=== PATIENT | male | born 1945 | race Caucasian/White ===

== ENCOUNTER 2016-09-06 18:53 | Inpatient (IN) | payer OTHER, BC ==
[2016-09-06 19:58] LABS: MCH 32.1 pg (25.7-33.7); MCHC 33.6 g/dl (32.0-35.9); MEAN CELL VOLUME 95.6 fl (80-96); MEAN PLT VOLUME 6.3 fl (7.5-11.1); PLATELET COUNT 159 K/MM3 (134-434); RDW 13.9 % (11.9-15.9); WHITE BLOOD COUNT 8.8 K/mm3 (4.0-10.0)
[2016-09-06 20:08] LABS: CALCIUM 10.9 mg/dl (8.4-10.2); CREATININE 3.7 mg/dl (0.6-1.3)
--- NOTE | 2016-09-06 20:54 | PDOC ---
History of Present Illness - General History Source: Family (Daughters), Senior Care Records Exam Limitations: Dementia - History of Present Illness Initial Comments: 09/06/16 20:55 The patient is a 70 year old male brought via EMS from [facility], with a significant past medical history of Dementia, Cervical Myelopathy, CAD, CHF s/p pacemaker, HTN, HLD and diabetes, who presents to the emergency department with anemia. Blood work performed at the [facility] reports that his hemoglobin count is 6.3. On previous blood work from 08/30/2016, his hemoglobin count was 7.5. Allergies: None Past surgical history: PPM, spine surgery, neck surgery Social history: No alcohol, tobacco or drug use reported Senior Care: [facility] PMD - Dr. uGstavo Polanco ([phone]) <Ivan Gautam - Last Filed: 09/06/16 20:55> <Rafael Mckeon - Last Filed: 09/06/16 21:16> - General Chief Complaint: Weakness Stated Complaint: SENT FOR ANEMIA Time Seen by Provider: 09/06/16 19:11 Past History <Ivan Gautam - Last Filed: 09/06/16 20:55> - Past Medical History Cardiac Disorders: Yes (CAD) Diabetes: Yes HTN: Yes Hypercholesterolemia: Yes Other medical history: CERVICAL MYELOPATHY, LEFT SIDED SPASTICITY - Surgical History Cardiac Surgery: Yes (PPM) Neurologic Surgery: Yes (C5 C6 SURGERY) - Immunization History Td Vaccination: Yes TDAP Vaccination: Yes Immunization Up to Date: Yes - Psycho/Social/Smoking Cessation Hx Anxiety: No Suicidal Ideation: No Smoking History: Unknown if ever smoked Have you smoked in the past 12 months: No Number of Cigarettes Smoked Daily: 0 Hx Alcohol Use: No Drug/Substance Use Hx: No Substance Use Type: None <Rafael Mckeon - Last Filed: 09/06/16 21:16> - Past Medical History Allergies/Adverse Reactions: Allergies Allergy/AdvReac Type Severity Reaction Status Date / Time No Known Allergies Allergy Verified 09/06/16 18:54 Home Medications: Ambulatory Orders Acetaminophen [Tylenol] 650 mg PO TID PRN 09/06/16 Ascorbate Calcium [Vitamin C] 500 mg PO BID 09/06/16 Carvedilol [Coreg] 3.125 mg PO DAILY 09/06/16 Docusate Sodium [Colace -] 100 mg PO BID 09/06/16 Erythromycin 0.5% Eye Ointment [Erythromycin 0.5% Eye Ointment -] 1 applic DAILY 09/06/16 Folic Acid 1 mg PO DAILY 09/06/16 Megestrol Acetate Oral Susp [Megace Oral Suspension -] 20 ml PO DAILY 09/06/16 Mirtazapine [Remeron -] 30 mg PO DAILY 09/06/16 Multivitamin with Minerals [Icaps Plus] 1 each PO DAILY 09/06/16 Sodium Phosphate/Na Biphos [Fleet Adult Rectal Enema] 133 ml RC PRN PRN Review of Systems - Review of Systems Able to Perform ROS?: No Comments:: 09/06/16 20:56 Unable to obtain due to patient dementia. <Ivan Gautam - Last Filed: 09/06/16 20:55> *Physical Exam - Vital Signs Last Vital Signs Temp Pulse Resp BP Pulse Ox 98.5 F 98 H 16 128/69 99 09/06/16 18:55 09/06/16 19:23 09/06/16 19:23 09/06/16 19:23 09/06/16 19:23 <Ivan Gautam - Last Filed: 09/06/16 20:55> - Vital Signs Last Vital Signs Temp Pulse Resp BP Pulse Ox 98.5 F 98 H 16 128/69 99 09/06/16 18:55 09/06/16 19:23 09/06/16 19:23 09/06/16 19:23 09/06/16 19:23 - Physical Exam General Appearance: Yes: Nourished, Appropriately Dressed. No: Apparent Distress HEENT: positive: Normal ENT Inspection (DRY MUCOSAE) Neck: positive: Rigid. negative: Tender Respiratory/Chest: positive: Lungs Clear, Normal Breath Sounds. negative: Respiratory Distress Cardiovascular: positive: Regular Rhythm, Regular Rate Gastrointestinal/Abdominal: positive: Normal Bowel Sounds, Soft. negative: Tender Musculoskeletal: positive: Normal Inspection Extremity: positive: Normal Capillary Refill, Other (SPASTIC. PROXIMAL EXT FLEXION AND DISTAL EXT) Integumentary: positive: Normal Color. negative: Rash Neurologic: positive: Alert. negative: Fully Oriented <Rafael Mckeon - Last Filed: 09/06/16 21:16> ED Treatment Course - LABORATORY CBC & Chemistry Diagram: 09/06/16 19:40 09/06/16 19:40 - ADDITIONAL ORDERS Additional order review: Laboratory Results 09/06/16 09/06/16 19:40 19:40 Sodium 134 L Potassium 4.3 Chloride 105 Carbon Dioxide 18 L D Anion Gap 11 BUN 63 H D Creatinine 3.7 H D Random Glucose 97 D Calcium 10.9 H D Crossmatch See Detail 09/06/16 19:40 RBC 2.11 L D MCV 95.6 MCHC 33.6 RDW 13.9 MPV 6.3 L D <Ivan Gautam - Last Filed: 09/06/16 20:55> - LABORATORY CBC & Chemistry Diagram: 09/06/16 19:40 09/06/16 19:40 - ADDITIONAL ORDERS Additional order review: Laboratory Results 09/06/16 19:40 Sodium 134 L Potassium 4.3 Chloride 105 Carbon Dioxide 18 L D Anion Gap 11 BUN 63 H D Creatinine 3.7 H D Random Glucose 97 D Calcium 10.9 H D 09/06/16 19:40 RBC 2.11 L D MCV 95.6 MCHC 33.6 RDW 13.9 MPV 6.3 L D <Rafael Mckeon - Last Filed: 09/06/16 21:16> *DC/Admit/Observation/Transfer - Attestations Scribe Attestion: 09/06/16 20:57 Documentation prepared by Ivan Gautam, acting as medical biller coder for Rafael Mckeon MD. <Ivan Gautam - Last Filed: 09/06/16 20:55> - Discharge Dispostion Admit: Yes <Rafael Mckeon - Last Filed: 09/06/16 21:16> Diagnosis at time of Disposition: Anemia Qualifiers: Anemia type: unspecified type Qualified Code(s): D64.9 - Anemia, unspecified Acute renal failure Qualifiers: Acute renal failure type: unspecified Qualified Code(s): N17.9 - Acute kidney failure, unspecified - Discharge Dispostion Condition at time of disposition: Stable - Referrals Referrals: Gustavo Polanco [Primary Care Provider] -
[2016-09-06] MEDS: SODIUM CHLORIDE 1,000 ML IV SCH (21:30)
--- NOTE | 2016-09-06 21:36 | HP ---
CHIEF COMPLAINT: Low Hgb PCP: Dr. Gustavo Polanco HISTORY OF PRESENT ILLNESS: This is a 70 year old male with a past medical history of Dementia, HTN, CHF, CAD s/p PPM, HLD, DM, Cervical Myelopathy. Who presented to the emergency department from [facility] for Anemia, lab studies done showed Hgb 6.3. Patient has Dementia unable to obtain HPI, family not available. Per ED records: Blood work performed at the [facility] reports that his hemoglobin count is 6.3. On previous blood work from 08/30/2016, his hemoglobin count was 7.5. ER course was notable for: (1) Hgb 6.8 (2) ARF- BUN 19, Cr 3.7 (3) Chest Xray-pending (4) Stool Occult-negative Recent Travel: None PAST MEDICAL HISTORY: See HPI PAST SURGICAL HISTORY: PPM Cervical Social History: Smoking: Unknown Alcohol: Unknown Drugs: Unknown Family History: Unknown Allergies No Known Allergies Allergy (Verified 09/06/16 18:54) HOME MEDICATIONS: Medication Instructions Recorded Acetaminophen [Tylenol] 650 mg PO TID PRN 09/06/16 Ascorbate Calcium [Vitamin C] 500 mg PO BID 09/06/16 Carvedilol [Coreg] 3.125 mg PO DAILY 09/06/16 Docusate Sodium [Colace -] 100 mg PO BID 09/06/16 Erythromycin 0.5% Eye Ointment 1 applic DAILY 09/06/16 [Erythromycin 0.5% Eye Ointment -] Folic Acid 1 mg PO DAILY 09/06/16 Megestrol Acetate Oral Susp 20 ml PO DAILY 09/06/16 [Megace Oral Suspension -] Mirtazapine [Remeron -] 30 mg PO DAILY 09/06/16 Multivitamin with Minerals [Icaps 1 each PO DAILY 09/06/16 Plus] Sodium Phosphate/Na Biphos [Fleet 133 ml RC PRN PRN 09/06/16 Adult Rectal Enema] REVIEW OF SYSTEMS Unable to obtain CONSTITUTIONAL: Absent: fever, chills, diaphoresis, generalized weakness, malaise, loss of appetite, weight change HEENT: Absent: rhinorrhea, nasal congestion, throat pain, throat swelling, difficulty swallowing, mouth swelling, ear pain, eye pain, visual changes CARDIOVASCULAR: Absent: chest pain, syncope, palpitations, irregular heart rate, lightheadedness , peripheral edema RESPIRATORY: Absent: cough, shortness of breath, dyspnea with exertion, orthopnea, wheezing, stridor, hemoptysis GASTROINTESTINAL: Absent: abdominal pain, abdominal distension, nausea, vomiting, diarrhea, constipation, melena, hematochezia GENITOURINARY: Absent: dysuria, frequency, urgency, hesitancy, hematuria, flank pain, genital pain MUSCULOSKELETAL: Absent: myalgia, arthralgia, joint swelling, back pain, neck pain SKIN: Absent: rash, itching, pallor HEMATOLOGIC/IMMUNOLOGIC: Absent: easy bleeding, easy bruising, lymphadenopathy, frequent infections ENDOCRINE: Absent: unexplained weight gain, unexplained weight loss, heat intolerance, cold intolerance NEUROLOGIC: Absent: headache, focal weakness or paresthesias, dizziness, unsteady gait, seizure, mental status changes, bladder or bowel incontinence PSYCHIATRIC: Absent: anxiety, depression, suicidal or homicidal ideation, hallucinations. PHYSICAL EXAMINATION Vital Signs - 24 hr 09/06/16 09/06/16 18:55 19:23 Temperature 98.5 F Pulse Rate 98 H Pulse Rate [ 98 H Left Apical] Respiratory 20 16 Rate Blood Pressure 135/99 Blood Pressure 128/69 [Right Arm] O2 Sat by Pulse 100 99 Oximetry (%) GENERAL: Dementia, in no acute distress. HEAD: Normal with no signs of trauma. EYES: Pupils equal, round and reactive to light, sclera anicteric, conjunctiva clear. No lid lag. EARS, NOSE, THROAT: Ears normal, nares patent, oropharynx clear without exudates. Dry mucous membranes. NECK: Normal range of motion, supple without lymphadenopathy, JVD, or masses. LUNGS: Breath sounds equal, clear to auscultation bilaterally. No wheezes, and no crackles. No accessory muscle use. HEART: Regular rate and rhythm, normal S1 and S2 without murmur, rub or gallop. ABDOMEN: Soft, nontender, not distended, normoactive bowel sounds, no guarding, no rebound, no masses. No hepatomegaly or splenomegaly. MUSCULOSKELETAL: Limited range of motion of lower and left upper extremities. Severe contracture of right upper extremity. No bony deformities or tenderness. No CVA tenderness. UPPER EXTREMITIES: 2+ pulses, warm, well-perfused. No cyanosis. No clubbing. Cap refill <2 seconds. No peripheral edema. LOWER EXTREMITIES: 2+ pulses, warm, well-perfused. No calf tenderness. +trace peripheral edema to bilateral feet. NEUROLOGICAL: Cranial nerves II-XII intact. Slowed speech. PSYCHIATRIC: Agitated. Good eye contact. Appropriate mood and affect. SKIN: Warm, dry, normal turgor, no rashes or lesions noted. Laboratory Results - last 24 hr 09/06/16 09/06/16 09/06/16 19:40 19:40 19:40 WBC 8.8 RBC 2.11 L D Hgb 6.8 L* D Hct 20.2 L D MCV 95.6 MCHC 33.6 RDW 13.9 Plt Count 159 D MPV 6.3 L D Sodium 134 L Potassium 4.3 Chloride 105 Carbon Dioxide 18 L D Anion Gap 11 BUN 63 H D Creatinine 3.7 H D Random Glucose 97 D Calcium 10.9 H D Crossmatch See Detail ASSESSMENT/PLAN: This is a 70 year old man with a PMHx of: Dementia, HTN, HLD, DM, CHF, CAD s/p PPM, Cervical Myelopathy. Who presents to the ED from [facility] with Anemia. Admitted for Anemia, ARF for further evaluation of their emergent condition. Plan: 1.Anemia - Admit - Started PRBCs x2 in ED, then continued on med floor - Add on FE, TIBC to earlier labs - Stool Occult- negative - Repeat CBC in am - Consider Hematology Consult 2. Acute Renal Failure - Likely secondary to Anemia - Baseline Cr 0.6 - NS bolus given - BMP in am - Consider Renal Consult - Renal US - Monitor vitals 3. Cardiology: HTN/HLD/CHF/CAD - Monitor BP - Continue home meds - Monitor renal function - Chest Xray image reviewed no evidence of acute pathology- awaiting report - EKG- pending 4. Psych: Dementia - Continue home med 5. F/E/N - PO fluids as tolerated - Replete lytes prn - Low Na, Low Chol Diet 6. DVT Prophylaxis - TEDs - SCDs - AC Held 2/ Anemia Code Status: Patient has a HCP, Aster Mcmillan (daughter) [phone], Patient is a Full Code Problem List - Problem (1) Acute renal failure Code(s): N17.9 - ACUTE KIDNEY FAILURE, UNSPECIFIED Qualifiers: Acute renal failure type: unspecified Qualified Code(s): N17.9 - Acute kidney failure, unspecified (2) Anemia Code(s): D64.9 - ANEMIA, UNSPECIFIED Qualifiers: Anemia type: unspecified type Qualified Code(s): D64.9 - Anemia, unspecified (3) HTN (hypertension) Code(s): I10 - ESSENTIAL (PRIMARY) HYPERTENSION (4) CHF (congestive heart failure) Code(s): I50.9 - HEART FAILURE, UNSPECIFIED (5) Diabetes mellitus Code(s): E11.9 - TYPE 2 DIABETES MELLITUS WITHOUT COMPLICATIONS (6) Dementia Code(s): F03.90 - UNSPECIFIED DEMENTIA WITHOUT BEHAVIORAL DISTURBANCE (7) DVT prophylaxis Code(s): SBM7449 - Visit type - Emergency Visit Emergency Visit: Yes ED Registration Date: 09/06/16 Care time: The patient presented to the Emergency Department on the above date and was hospitalized for further evaluation of their emergent condition. - New Patient This patient is new to me today: Yes Date on this admission: 09/06/16 - Critical Care Critical Care patient: No
[2016-09-06] MEDS ORDERED: FUROSEMIDE 40 MG/4 ML INJECTABLE VIAL IVPUSH ONE (23:53)
[2016-09-07] MEDS ORDERED: FUROSEMIDE 40 MG/4 ML INJECTABLE VIAL ONE (06:09)
[2016-09-07] MEDS ORDERED: PT OWN MED DRAWER 7, Y5N ONE ×2 (10:43→21:20)
[2016-09-07] MEDS: CARVEDILOL 3.125 MG TABLET (FP) PO SCH ×2 (10:45→21:32)
[2016-09-07] MEDS: FOLIC ACID 1 MG TABLET (FP) PO SCH (10:45)
[2016-09-07] MEDS: ARTIFICIAL TEARS (POLYVINYL ALCOHOL 1.4%) OPTH DROPS OU SCH ×2 (10:45→21:31)
[2016-09-07] MEDS ORDERED: ACETAMINOPHEN 325 MG TABLET (FP) PO PRN (12:23)
--- NOTE | 2016-09-07 12:35 | PN ---
Physical Exam: SUBJECTIVE: Patient seen and examined this is a 70 year old male with a past medical history of dementia, HTN, CHF, CAD, PPM, HLD, DM and cervical myelopathy who was admitted for anemia. He received 2uPRBC thus far. Pt denies any complaints on exam. During interview, pt states "i don't want to answer any more questions" and was mildly resistant to physical exam but was able to be completed after some coaxing. OBJECTIVE: Vital Signs - 24 hr 3 09/06/16 09/06/16 09/06/16 18:55 19:23 23:21 Temperature 98.5 F 98.5 F Pulse Rate 98 H 102 H Pulse Rate [ 98 H Left Apical] Respiratory 20 16 19 Rate Blood Pressure 135/99 137/80 Blood Pressure 128/69 [Right Arm] O2 Sat by Pulse 100 99 99 Oximetry (%) 3 09/06/16 09/07/16 09/07/16 23:27 03:00 08:45 Temperature 98.5 F 97.5 F L Pulse Rate 102 H 92 H Pulse Rate [ Left Apical] Respiratory 19 18 18 Rate Blood Pressure 137/80 135/78 Blood Pressure [Right Arm] O2 Sat by Pulse 99 Oximetry (%) GENERAL: The patient is awake, alert, and oriented to hospital and person, in no acute distress. marked sarcopenia noted HEAD: Normal with no signs of trauma. EYES: PERRL, extraocular movements intact, sclera anicteric, conjunctiva clear. No ptosis. ENT: Ears normal, nares patent, oropharynx clear without exudates, moist mucous membranes. NECK: Trachea midline, full range of motion, supple. LUNGS: Breath sounds equal, clear to auscultation bilaterally, no wheezes, no crackles, no accessory muscle use. HEART: Regular rate and rhythm, S1, S2 without rub or gallop. + murmur 2/6, 2nd ICS RMCL. ABDOMEN: Soft, nontender, nondistended, normoactive bowel sounds, no guarding, no rebound, no hepatosplenomegaly, no masses. EXTREMITIES: 2+ pulses, warm, well-perfused, no edema. NEUROLOGICAL: Cranial nerves II through XII grossly intact. Normal speech, gait not observed. PSYCH: Normal mood, normal affect. SKIN: Warm, dry, normal turgor, no rashes or lesions noted Laboratory Results - last 24 hr 3 09/06/16 09/06/16 09/06/16 19:40 19:40 19:40 WBC 8.8 RBC 2.11 L D Hgb 6.8 L* D Hct 20.2 L D MCV 95.6 MCHC 33.6 RDW 13.9 Plt Count 159 D MPV 6.3 L D Sodium 134 L Potassium 4.3 Chloride 105 Carbon Dioxide 18 L D Anion Gap 11 BUN 63 H D Creatinine 3.7 H D Random Glucose 97 D Calcium 10.9 H D Stool Occult Blood Blood Type O POSITIVE Antibody Screen Negative Crossmatch See Detail Active Medications 3 Generic Name Dose Route Start Last Admin Trade Name Jeremyq PRN Reason Stop Dose Admin Artificial Tears 1 drop 09/07/16 10:00 09/07/16 10:45 Artificial Tears OU 1 drop BID LINDA Administration Carvedilol 3.125 mg 09/07/16 10:00 09/07/16 10:45 Coreg - PO 3.125 mg BID LINDA Administration Folic Acid 1 mg 09/07/16 10:00 09/07/16 10:45 Folic Acid - PO 1 mg DAILY LINDA Administration Sodium Chloride 1,000 mls @ 83 mls/hr 09/06/16 21:00 09/06/16 21:30 Normal Saline - IV 83 mls/hr ASDIR LINDA Administration ASSESSMENT/PLAN: 70yM with PMH: dementia, HTN, CHF, CAD, PPM, HLD, DM and cervical myelopathy admitted for severe anemia. Anemia - s/p 2uPRBC given - iron studies pending, folic acid and B12 ordered - ? etiology, renal?? - Hgb 7.6 on 08/23/16, 10.19 March 2016 - post transfusion CBC pending Acute kidney injury - called skilled nursing, BUN / Cr 56/2.0 on 08/23/15, 45/0.79 on 05/13/16 - renal consult - cont IVF NS 83cc/hr - repeat BMP pending - renal sono pending HTN/CHF/CAD - cont home coreg DM as per history - monitor glucose on BMP, yesterday 97, no indication for hypoglycemic agents. - A1C in AM Depression - cont remeron DVT PPX - defer heparin due to severe anemia for now. FEN - cont NS @83cc/hr - [employer] pending - low sodium diet Dispo: pt currently requires inpatient care. Visit type - Emergency Visit Emergency Visit: Yes ED Registration Date: 09/06/16 Care time: The patient presented to the Emergency Department on the above date and was hospitalized for further evaluation of their emergent condition. - New Patient This patient is new to me today: Yes Date on this admission: 09/07/16 - Critical Care Critical Care patient: No
[2016-09-07 13:03] LABS: BASOPHIL 0.3 % (0-2.0); EOSINOPHIL 1.6 % (0-4.5); MCH 30.9 pg (25.7-33.7); MCHC 33.1 g/dl (32.0-35.9); MEAN CELL VOLUME 93.3 fl (80-96); MEAN PLT VOLUME 6.4 fl (7.5-11.1); NEUTROPHILS 71.4 % (42.8-82.8); PLATELET COUNT 149 K/MM3 (134-434); RDW 15.4 % (11.9-15.9); WHITE BLOOD COUNT 6.7 K/mm3 (4.0-10.0)
[2016-09-07 13:06] LABS: ALBUMIN 2.1 g/dl (3.5-5.0); ALK PHOS 32 U/L (32-92); ANION GAP 15 (8-16); BILIRUBIN,TOTAL 0.5 mg/dl (0.2-1.0); CALCIUM 10.9 mg/dl (8.4-10.2); CO2 16 mmol/L (22-28); CREATININE 3.5 mg/dl (0.6-1.3); GLUCOSE,RANDOM 76 mg/dl (74-106); MAGNESIUM 1.8 mg/dL (1.8-2.4); PHOSPHOROUS 3.5 mg/dl (2.5-4.6); SGOT/AST 17 U/L (10-42); SGPT/ALT 9 U/L (10-40); TOT PROT 10.1 g/dl (6.4-8.3)
[2016-09-07 14:14] LABS: BILIRUBIN,DIRECT < 0.1 mg/dl (0.0-0.2)
[2016-09-07] MEDS: MULTIVITAMINS THER W-MINERALS COMBO TABLET (FP) PO SCH (18:00)
--- NOTE | 2016-09-07 18:48 | CON.NEP ---
Consult - History of Present Illness History of Present Illness: Asked to see this 70 yo gentleman with renal insufficiency who recently had a normal creatinine but apparently has worsened over past several weeks. He was BIBA with a significant past medical history of Dementia, Cervical Myelopathy, CAD, CHF s/p pacemaker, HTN, HLD and diabetes, for evaluation of anemia. [facility] reports that his hemoglobin count is 6.3. On previous blood work from 08/30/2016, his hemoglobin count was 7.5. He is unable to provide adequate history. Mostly responds yes or no. Denies pain or difficulty urinating. - History Source History Provided By: Patient, Medical Record Limitations to Obtaining History: Dementia - Past Surgical History Past Surgical History: Yes: Permanent Pacemaker - Alcohol/Substance Use Hx Alcohol Use: No - Smoking History Smoking history: Unknown if ever smoked Have you smoked in the past 12 months: No Aproximately how many cigarettes per day: 0 Home Medications - Allergies Allergies/Adverse Reactions: Allergies Allergy/AdvReac Type Severity Reaction Status Date / Time No Known Allergies Allergy Verified 09/06/16 18:54 - Home Medications Home Medications: Ambulatory Orders Acetaminophen [Tylenol] 650 mg PO Q6H PRN 09/06/16 Ascorbate Calcium [Vitamin C] 500 mg PO BID 09/06/16 Carvedilol [Coreg] 3.125 mg PO BID 09/06/16 Docusate Sodium [Colace -] 100 mg PO BID 09/06/16 Erythromycin 0.5% Eye Ointment [Erythromycin 0.5% Eye Ointment -] 1 applic DAILY 09/06/16 Folic Acid 1 mg PO DAILY 09/06/16 Hypromellose 0.5% Opth Soln [Artificial Tears] 1 drop OU BID 09/06/16 Megestrol Acetate Oral Susp [Megace Oral Suspension -] 20 ml PO DAILY 09/06/16 Mirtazapine [Remeron -] 30 mg PO DAILY 09/06/16 Multivitamin with Minerals [Icaps Plus] 1 each PO DAILY 09/06/16 Sodium Phosphate/Na Biphos [Fleet Adult Rectal Enema] 133 ml RC PRN PRN Review of Systems Unable to obtain ROS, reason: pt does not answer Nephrology Consult - Height Height: 5 ft 3 in - Weight Weight: 160 lb 15.987 oz - BMI Body Mass Index (BMI): 28.5 - Lab Results CBC,BMP: CBC, BMP 09/07/16 12:00 09/07/16 12:00 Anion Gap: Anion Gap Anion Gap 15 (8-16) 09/07/16 12:00 - Imaging Ultrasound: Report Reviewed (mild bilateral hydronephrosis) - Physical Examination Vital Signs: Vital Signs Temperature 98.7 F 09/07/16 15:09 Pulse Rate 88 09/07/16 15:09 Respiratory Rate 20 09/07/16 15:09 Blood Pressure 135/76 09/07/16 15:09 O2 Sat by Pulse Oximetry (%) 94 L 09/07/16 15:09 Constitutional: Yes: No Distress, Calm, Thin Eyes: Yes: Conjunctiva Clear HENT: Yes: Atraumatic, Normocephalic Neck: Yes: Supple, Trachea Midline Cardiovascular: Yes: Regular Rate and Rhythm, Tachycardia, Murmur (all over precordium. best heard at right sternal border) Respiratory: Yes: Regular, CTA Bilaterally Gastrointestinal: Yes: Normal Bowel Sounds, Soft Renal/: Yes: WNL. No: Bladder Distention Musculoskeletal: Yes: Joint Stiffness, Muscle Weakness Extremities: Yes: WNL Edema: No Integumentary: Yes: WNL Wound/Incision: Yes: Clean/Dry, Well Approximated Neurological: Yes: Alert (answers no/yes. Dysarthric) Psychiatric: Yes: Alert, Oriented Assessment/Plan IMPRESSION Pt has renal insufficiency with anemia, hypercalcemia and a very high globulin level. A paraproteinemia has to be considered. He does have hydronephrosis on sonogram though this to me is equivocal. PLAN insert [place] have hematology evaluate serum protein electrophoresis psa ionized calcium level pth and vitamin d level hepatitis B and C hiv testing if not already done avoid contrast and other nephrotoxins continue hydration cautious use of megace that can contribute to thrombosis MV
[2016-09-07 18:49] VITALS: BMI 28.5
[2016-09-07] MEDS ORDERED: MIRTAZAPINE 15 MG TABLET (FP) ONE (21:20)
[2016-09-07] MEDS: MIRTAZAPINE 30 MG TABLET (FP) PO SCH (21:32)
[2016-09-07] MEDS: DOCUSATE SODIUM 100 MG CAPSULE (FP) PO SCH (21:32)
[2016-09-07] MEDS: SODIUM CHLORIDE 1,000 ML IV SCH (21:36)
[2016-09-07] MEDS: ERYTHROMYCIN 0.5% OPHTHALMIC OINTMENT 3.5 GM TUBE OU SCH (22:08)
[2016-09-08 07:50] LABS: BASOPHIL 0.5 % (0-2.0); EOSINOPHIL 1.7 % (0-4.5); MCH 33.6 pg (25.7-33.7); MCHC 35.7 g/dl (32.0-35.9); MEAN CELL VOLUME 94.2 fl (80-96); MEAN PLT VOLUME 6.6 fl (7.5-11.1); PLATELET COUNT 124 K/MM3 (134-434); RDW 15.5 % (11.9-15.9)
[2016-09-08 08:10] LABS: SERUM IRON 61 ug/dL (38-169); TOTAL IRON BINDING CAPACITY 156 ug/dL (250-450); UIBC 95 ug/dL (111-343)
[2016-09-08 08:35] LABS: ALBUMIN 2.1 g/dl (3.4-5.0); BILIRUBIN,TOTAL 0.3 mg/dL (0.2-1.0); CALCIUM 10.8 mg/dL (8.5-10.1); CREATININE 3.5 mg/dL (0.7-1.3); TOT PROT 10.1 g/dl (6.4-8.2)
[2016-09-08] MEDS ORDERED: PT OWN MED DRAWER 7, Y5N ONE ×2 (09:11→21:55)
[2016-09-08] MEDS: DOCUSATE SODIUM 100 MG CAPSULE (FP) PO SCH ×2 (09:12→21:39)
[2016-09-08] MEDS: ARTIFICIAL TEARS (POLYVINYL ALCOHOL 1.4%) OPTH DROPS OU SCH ×2 (09:12→21:38)
[2016-09-08] MEDS: MULTIVITAMINS THER W-MINERALS COMBO TABLET (FP) PO SCH (09:13)
[2016-09-08] MEDS: FOLIC ACID 1 MG TABLET (FP) PO SCH (09:13)
[2016-09-08] MEDS: CARVEDILOL 3.125 MG TABLET (FP) PO SCH ×2 (09:13→21:39)
[2016-09-08 19:22] LABS: PH,URINE 5.5 (4.5-8); URINE BILIRUBIN Negative (NEGATIVE); URINE COLOR YELLOW; URINE GLUCOSE (UA) Negative (NEGATIVE); URINE KETONE Negative (NEGATIVE); URINE NITRITE Negative (NEGATIVE); URINE UROBILINOGEN 0.2 E.U/dl (0.2-1.0)
[2016-09-08 19:26] LABS: URINE APPEARANCE SL CLOUDY; URINE BLOOD 3+ (NEGATIVE); URINE LEUK ESTERASE Trace (NEGATIVE); URINE PROTEIN 2+ (NEGATIVE)
[2016-09-08 19:29] LABS: URINE BACTERIA FEW /hpf (NEGATIVE); URINE RBC 60-100 /hpf (0-3)
--- NOTE | 2016-09-08 21:17 | PN ---
Physical Exam: SUBJECTIVE: Patient seen and examined at bedside. OBJECTIVE: Vital Signs Period Temp Pulse Resp BP Sys/Mcmahon Pulse Ox Last 24 Hr 97.5 F-99.5 F 88-104 18-20 139-156/81-90 98-99 GENERAL: The patient is awake. A&O x 1. Perseverating, "I want water, I want water." Becomes agitated when touched. HEAD: Normal with no signs of trauma. EYES: PERRL, extraocular movements intact, sclera anicteric, conjunctiva clear. No ptosis. LUNGS: Anteiror breath sounds CTA HEART: Regular rate and rhythm, S1, S2 without murmur, rub or gallop. ABDOMEN: Soft, nontender, nondistended, normoactive bowel sounds, no guarding, no rebound EXTREMITIES: 2+ pulses, warm, well-perfused, no edema. NEUROLOGICAL: Cranial nerves II through XII grossly intact. Speech is clear, nonsensical. Laboratory Results - last 24 hr 09/07/16 09/08/16 09/08/16 20:30 06:00 06:00 WBC 7.0 RBC 2.43 L Hgb 8.2 L Hct 22.9 L MCV 94.2 MCHC 35.7 RDW 15.5 Plt Count 124 L MPV 6.6 L Neutrophils % 69.0 Lymphocytes % 22.5 Monocytes % 6.3 Eosinophils % 1.7 Basophils % 0.5 Sodium 139 Potassium 3.7 Chloride 108 H Carbon Dioxide 20 L Anion Gap 11 BUN 57 H Creatinine 3.5 H Creat Clearance w eGFR 17.45 Random Glucose 71 L Calcium 10.8 H Magnesium 2.0 Total Bilirubin 0.3 AST 13 L ALT 8 L Alkaline Phosphatase 34 L Total Protein 10.1 H Albumin 2.1 L Urine Color Urine Appearance Urine pH Ur Specific [place] Urine Protein Urine Glucose (UA) Urine Ketones Urine Blood Urine Nitrite Urine Bilirubin Urine Urobilinogen Ur Leukocyte Esterase Urine RBC Urine WBC Ur Epithelial Cells Amorphous Urates Urine Bacteria Urine Casts Stool Occult Blood Negative 09/08/16 19:00 WBC RBC Hgb Hct MCV MCHC RDW Plt Count MPV Neutrophils % Lymphocytes % Monocytes % Eosinophils % Basophils % Sodium Potassium Chloride Carbon Dioxide Anion Gap BUN Creatinine Creat Clearance w eGFR Random Glucose Calcium Magnesium Total Bilirubin AST ALT Alkaline Phosphatase Total Protein Albumin Urine Color Yellow Urine Appearance Sl cloudy Urine pH 5.5 Ur Specific [place] 1.015 Urine Protein 2+ H Urine Glucose (UA) Negative Urine Ketones Negative Urine Blood 3+ H Urine Nitrite Negative Urine Bilirubin Negative Urine Urobilinogen 0.2 e.u/dl Ur Leukocyte Esterase Trace H Urine RBC 60-100 Urine WBC 5-10 Ur Epithelial Cells Few Amorphous Urates Few Urine Bacteria Few Urine Casts Few Stool Occult Blood Current Medications Generic Name Dose Route Start Last Admin Trade Name Jeremyq PRN Reason Stop Dose Admin Acetaminophen 650 mg 09/07/16 12:23 Tylenol - PO Q6H PRN PAIN Artificial Tears 1 drop 09/07/16 10:00 09/08/16 09:12 Artificial Tears OU 1 drop BID LINDA Administration Carvedilol 3.125 mg 09/07/16 10:00 09/08/16 09:13 Coreg - PO 3.125 mg BID LINDA Administration Docusate Sodium 100 mg 09/07/16 22:00 09/08/16 09:12 Colace - PO 100 mg BID LINDA Administration Erythromycin 1 applic 09/07/16 22:00 09/07/16 22:08 Erythromycin 0.5% Eye Ointment OU 1 applic HS LINDA Administration Folic Acid 1 mg 09/07/16 10:00 09/08/16 09:13 Folic Acid - PO 1 mg DAILY LINDA Administration Sodium Chloride 1,000 mls @ 83 mls/hr 09/06/16 21:00 09/08/16 21:18 Normal Saline - IV 83 mls/hr ASDIR LINDA Administration Mirtazapine 30 mg 09/07/16 22:00 09/07/16 21:32 Remeron - PO 30 mg HS LINDA Administration Multivitamins/Minerals 1 each 09/07/16 16:30 09/08/16 09:13 Theragran-M PO 1 each DAILY LINDA Administration ASSESSMENT/PLAN: 70 year-old male with a PMH of HTN, HLD, CAD, CHF, CAD, PPM, dementia, DM and cervical myelopathy who was admitted for anemia. Anemia Hypercalcemia Hyperproteinemia --transfused 2 units with good response Hgb 6.8-->8.8, but trending down, now 8.2 --stool occult negative x 2 --IV fluids --hematology consult --GI consult Acute kidney injury Bilateral hydronephrosis --Cr 3.7 on admission, baseline 0.8 --winston placed making good urine --renal following Hypertension --continue carvedilol Hyperlipidemia --on no meds CAD s/p PPM --continue carvedilol Dementia/depression - cont remeron DVT PPX: defer heparin due to severe anemia for now. FEN Fluids: NS @83cc/hr Electrolytes: replete as indicated Nutrition: low sodium diet Dispo: pt currently requires inpatient care. Visit type - Emergency Visit Emergency Visit: Yes ED Registration Date: 09/06/16 Care time: The patient presented to the Emergency Department on the above date and was hospitalized for further evaluation of their emergent condition. - New Patient This patient is new to me today: Yes Date on this admission: 09/08/16 - Critical Care Critical Care patient: No
[2016-09-08] MEDS: SODIUM CHLORIDE 1,000 ML IV SCH (21:18)
[2016-09-08] MEDS ORDERED: MIRTAZAPINE 15 MG TABLET (FP) ONE (21:32)
[2016-09-08] MEDS: MIRTAZAPINE 30 MG TABLET (FP) PO SCH (21:39)
[2016-09-08] MEDS: ERYTHROMYCIN 0.5% OPHTHALMIC OINTMENT 3.5 GM TUBE OU SCH (21:39)
[2016-09-09 08:32] LABS: BASOPHIL 0.5 % (0-2.0); EOSINOPHIL 1.8 % (0-4.5); MEAN CELL VOLUME 93.9 fl (80-96); NEUTROPHILS 66.8 % (42.8-82.8); PLATELET COUNT 159 K/MM3 (134-434); RDW 14.6 % (11.9-15.9)
[2016-09-09 08:58] LABS: ALBUMIN 2.1 g/dl (3.5-5.0); ALK PHOS 32 U/L (32-92); ANION GAP 13 (8-16); BILIRUBIN,TOTAL 0.3 mg/dl (0.2-1.0); CALCIUM 10.4 mg/dl (8.4-10.2); CO2 15 mmol/L (22-28); CREATININE 3.3 mg/dl (0.6-1.3); GLUCOSE,RANDOM 84 mg/dl (74-106); MAGNESIUM 1.9 mg/dL (1.8-2.4); PHOSPHOROUS 3.6 mg/dl (2.5-4.6); SGOT/AST 17 U/L (10-42); TOT PROT 9.9 g/dl (6.4-8.3)
[2016-09-09 08:59] LABS: MEAN PLT VOLUME 5.8 fl (7.5-11.1)
[2016-09-09] MEDS ORDERED: PT OWN MED DRAWER 7, Y5N ONE ×2 (09:06→21:07)
[2016-09-09] MEDS: ARTIFICIAL TEARS (POLYVINYL ALCOHOL 1.4%) OPTH DROPS OU SCH ×2 (09:07→21:44)
[2016-09-09] MEDS: MULTIVITAMINS THER W-MINERALS COMBO TABLET (FP) PO SCH (09:07)
[2016-09-09] MEDS: DOCUSATE SODIUM 100 MG CAPSULE (FP) PO SCH ×2 (09:07→21:44)
[2016-09-09] MEDS: CARVEDILOL 3.125 MG TABLET (FP) PO SCH ×2 (09:07→21:44)
[2016-09-09] MEDS: FOLIC ACID 1 MG TABLET (FP) PO SCH (09:07)
[2016-09-09 09:16] LABS: SGPT/ALT < 9 U/L (10-40)
--- NOTE | 2016-09-09 09:18 | PN ---
[id number] subjective information. OBJECTIVE: patient is a 70 year-old male with a PMH of HTN, HLD, CAD, CHF, CVA , CAD, PPM, dementia, DM and cervical myelopathy who was admitted for anemia. Vital Signs Period Temp Pulse Resp BP Sys/Mcmahon Pulse Ox Last 24 Hr 98 F-98.1 F 88-95 18-20 119-145/81-95 99-100 GENERAL: The patient is awake, alert, and oriented x1, agitated. . HEAD: Normal with no signs of trauma. EYES: PERRL, extraocular movements intact, sclera anicteric, conjunctiva clear. No ptosis. ENT: Ears normal, nares patent, oropharynx clear without exudates, moist mucous membranes. NECK: Trachea midline, full range of motion, supple. LUNGS: Breath sounds equal, clear to auscultation bilaterally, no wheezes, no crackles, no accessory muscle use. HEART: Regular rate and rhythm, S1, S2, 3/6 systolic murmur, rub or gallop. ABDOMEN: Soft, nontender, nondistended, normoactive bowel sounds, no guarding, no rebound, no hepatosplenomegaly, no masses. : winston draining clear yellow urine EXTREMITIES: 2+ pulses, warm, well-perfused, no edema. upper extremeties contracted. NEUROLOGICAL: Cranial nerves II through XII grossly intact. slurred speech ( baseline), gait not observed. PSYCH: Normal mood, normal affect. SKIN: Warm, dry, normal turgor, no rashes or lesions noted Laboratory Results - last 24 hr 09/08/16 09/08/16 09/09/16 06:00 19:00 08:02 WBC 6.0 RBC 2.84 L Hgb 8.8 L Hct 26.7 L MCV 93.9 MCHC 33.0 RDW 14.6 Plt Count 159 MPV 5.8 L Neutrophils % 66.8 Lymphocytes % 24.4 Monocytes % 6.5 Eosinophils % 1.8 Basophils % 0.5 Sodium Potassium Chloride Carbon Dioxide Anion Gap BUN Creatinine Creat Clearance w eGFR Random Glucose Calcium Phosphorus Magnesium Total Bilirubin AST Alkaline Phosphatase Total Protein Albumin Urine Color Yellow Urine Appearance Sl cloudy Urine pH 5.5 Ur Specific [place] 1.015 Urine Protein 2+ H Urine Glucose (UA) Negative Urine Ketones Negative Urine Blood 3+ H Urine Nitrite Negative Urine Bilirubin Negative Urine Urobilinogen 0.2 e.u/dl Ur Leukocyte Esterase Trace H Urine RBC 60-100 Urine WBC 5-10 Ur Epithelial Cells Few Amorphous Urates Few Urine Bacteria Few Urine Casts Few Urine Creatinine 29.3 09/09/16 08:02 WBC RBC Hgb Hct MCV MCHC RDW Plt Count MPV Neutrophils % Lymphocytes % Monocytes % Eosinophils % Basophils % Sodium 139 Potassium 3.7 Chloride 111 H Carbon Dioxide 15 L Anion Gap 13 BUN 55 H Creatinine 3.3 H Creat Clearance w eGFR 18.68 Random Glucose 84 Calcium 10.4 H Phosphorus 3.6 Magnesium 1.9 Total Bilirubin 0.3 D AST 17 Alkaline Phosphatase 32 Total Protein 9.9 H Albumin 2.1 L Urine Color Urine Appearance Urine pH Ur Specific [place] Urine Protein Urine Glucose (UA) Urine Ketones Urine Blood Urine Nitrite Urine Bilirubin Urine Urobilinogen Ur Leukocyte Esterase Urine RBC Urine WBC Ur Epithelial Cells Amorphous Urates Urine Bacteria Urine Casts Urine Creatinine Active Medications Generic Name Dose Route Start Last Admin Trade Name Freq PRN Reason Stop Dose Admin Acetaminophen 650 mg 09/07/16 12:23 Tylenol - PO Q6H PRN PAIN Artificial Tears 1 drop 09/07/16 10:00 09/09/16 09:07 Artificial Tears OU 1 drop BID LINDA Administration Carvedilol 3.125 mg 09/07/16 10:00 09/09/16 09:07 Coreg - PO 3.125 mg BID LINDA Administration Docusate Sodium 100 mg 09/07/16 22:00 09/09/16 09:07 Colace - PO 100 mg BID LINDA Administration Erythromycin 1 applic 09/07/16 22:00 09/08/16 21:39 Erythromycin 0.5% Eye Ointment OU 1 applic HS LINDA Administration Folic Acid 1 mg 09/07/16 10:00 09/09/16 09:07 Folic Acid - PO 1 mg DAILY LINDA Administration Sodium Chloride 1,000 mls @ 83 mls/hr 09/06/16 21:00 09/08/16 21:18 Normal Saline - IV 83 mls/hr ASDIR LINDA Administration Mirtazapine 30 mg 09/09/16 22:00 Remeron - PO HS [facility] Multivitamins/Minerals 1 each 09/07/16 16:30 09/09/16 09:07 Theragran-M PO 1 each DAILY LINDA Administration imaging Ultrasound of kidney/bladder bilateral hydronephrosis ASSESSMENT/PLAN: 1) heme: normocytic Anemia - transfused 2 units, hemoglobin 8.8 stable - appreciate hematology input 2) nephrology - ruby creatine 3.3 baseline 0.8 - winston draining clear yellow urine - CT scan of abdomen/pelvis without contrast bilateral pleural effusion, moderately severe bilateral hydronephrosis and hydroureterwithout obvious obstruction, fecal impaction - Appreciate urology input - nephrology consulted and following 3) card Hypertension - continue Coreg 4) psych: Dementia/depression - cont remeron DVT PPX: defer heparin due to severe anemia for now. FEN Electrolytes: replete as indicated Nutrition: low sodium diet Dispo: pt currently requires inpatient care. Visit type - Emergency Visit Emergency Visit: Yes ED Registration Date: 09/06/16 Care time: The patient presented to the Emergency Department on the above date and was hospitalized for further evaluation of their emergent condition. - New Patient This patient is new to me today: Yes Date on this admission: 09/09/16 - Critical Care Critical Care patient: No - Discharge Referral Referred to [facility] Med [facility] Yes Physician Referral: Timi Sanchez MD (Int Med)
[2016-09-09 09:27] LABS: PH,URINE 5.5 (4.5-8); URINE APPEARANCE HAZY; URINE BILIRUBIN Negative (NEGATIVE); URINE BLOOD 3+ (NEGATIVE); URINE COLOR YELLOW; URINE GLUCOSE (UA) Negative (NEGATIVE); URINE KETONE Negative (NEGATIVE); URINE LEUK ESTERASE Trace (NEGATIVE); URINE NITRITE Negative (NEGATIVE); URINE PROTEIN 2+ (NEGATIVE); URINE UROBILINOGEN 0.2 E.U/dl (0.2-1.0)
--- NOTE | 2016-09-09 10:51 | PN ---
Progress Note (short form) - Note Progress Note: Patient seen and consult dictated. Patient with severe anemia ?etiology; has guaiac neg stool and normal iron studies. No signs of GI bleeding grossly (no melena or BRBPR). Has elevated BUN/creat with Renal eval in progress. Await Hematology consult and to defer any GI/endoscopic studies at this time. Will follow as needed.
[2016-09-09 11:19] LABS: URINE RBC 30-50 /hpf (0-3)
[2016-09-09 11:20] LABS: URINE HYALINE CAST 0-1 /lpf
[2016-09-09 11:21] LABS: URINE AMORPHOUS SEDIMENT 2+
--- NOTE | 2016-09-09 12:31 | EKG ---
Test Reason : Blood Pressure : / mmHG Vent. Rate : 102 BPM Atrial Rate : 094 BPM P-R Int : 152 ms QRS Dur : 178 ms QT Int : 408 ms P-R-T Axes : 092 -62 099 degrees QTc Int : 531 ms VENTRICULAR PACED RHYTHM WITH UNDERLYING SINUS RHYTHM ABNORMAL ECG NO PREVIOUS ECGS AVAILABLE Confirmed by NIKO LEONG MD ([id number]) on 09/09/2016 12:31:40 PM Referred By: Confirmed By:NIKO LEONG MD
--- NOTE | 2016-09-09 13:11 | PN ---
Progress Note, Physician History of Present Illness: Pt seen and examined at bedside. He appears comfortable and is tolerating the fluids. - Current Medication List Current Medications: Active Medications Acetaminophen (Tylenol -) 650 mg PO Q6H PRN PRN Reason: PAIN Artificial Tears (Artificial Tears) 1 drop OU BID [facility] Last Admin: 09/09/16 09:07 Dose: 1 drop Carvedilol (Coreg -) 3.125 mg PO BID [facility] Last Admin: 09/09/16 09:07 Dose: 3.125 mg Docusate Sodium (Colace -) 100 mg PO BID [facility] Last Admin: 09/09/16 09:07 Dose: 100 mg Erythromycin (Erythromycin 0.5% Eye Ointment) 1 applic OU HS [facility] Last Admin: 09/08/16 21:39 Dose: 1 applic Folic Acid (Folic Acid -) 1 mg PO DAILY [facility] Last Admin: 09/09/16 09:07 Dose: 1 mg Mirtazapine (Remeron -) 30 mg PO HS [facility] Multivitamins/Minerals (Theragran-M) 1 each PO DAILY [facility] Last Admin: 09/09/16 09:07 Dose: 1 each - Objective Vital Signs: Vital Signs Temperature 98 F 09/08/16 20:03 Pulse Rate 95 H 09/09/16 06:00 Respiratory Rate 20 09/09/16 09:00 Blood Pressure 119/95 09/09/16 06:00 O2 Sat by Pulse Oximetry (%) 100 09/09/16 09:00 Constitutional: Yes: Calm Eyes: Yes: Conjunctiva Clear HENT: Yes: Atraumatic Neck: Yes: Supple Cardiovascular: Yes: S1, S2 Respiratory: Yes: CTA Bilaterally Gastrointestinal: Yes: Soft Genitourinary: Yes: Singh Present Musculoskeletal: Yes: Joint Stiffness, Muscle Weakness Edema: No Neurological: Yes: Pre-Existing Deficit Labs: CBC, BMP 09/09/16 08:02 09/09/16 08:02 - ....Imaging Cat Scan: Report Reviewed Ultrasound: Report Reviewed Assessment/Plan Current Medications Generic Name Dose Route Start Last Admin Trade Name Freq PRN Reason Stop Dose Admin Acetaminophen 650 mg 09/07/16 12:23 Tylenol - PO Q6H PRN PAIN Artificial Tears 1 drop 09/07/16 10:00 09/09/16 09:07 Artificial Tears OU 1 drop BID [facility] Administration Carvedilol 3.125 mg 09/07/16 10:00 09/09/16 09:07 Coreg - PO 3.125 mg BID LINDA Administration Docusate Sodium 100 mg 09/07/16 22:00 09/09/16 09:07 Colace - PO 100 mg BID LINDA Administration Erythromycin 1 applic 09/07/16 22:00 09/08/16 21:39 Erythromycin 0.5% Eye Ointment OU 1 applic HS LINDA Administration Folic Acid 1 mg 09/07/16 10:00 09/09/16 09:07 Folic Acid - PO 1 mg DAILY LINDA Administration Mirtazapine 30 mg 09/09/16 22:00 Remeron - PO HS LINDA Multivitamins/Minerals 1 each 09/07/16 16:30 09/09/16 09:07 Theragran-M PO 1 each DAILY LINDA Administration Impression 1. PANCHO 2. hypercalcemia 3. HTN 4. hx CVA 5. CAD 6. CHF 7. Chol 8. DM Plan - renal function is not improved - will need renal workup - check kappa and lambda - discussed with oncology today - get urology evaluation for the hydro - repeat labs in am - renal failure can be secondary to obstruction - will follow Dr Silva
[2016-09-09] MEDS: POLYETHYLENE GLYCOL 3350 119 GM BTL PO SCH (14:50)
--- NOTE | 2016-09-09 15:41 | CONSULT ---
Admitting History and Physical - Primary Care Physician PCP: Leydi Gregory - Admission History of Present Illness: Per EMR: "Patient is a 70 year-old male with a PMH of HTN, HLD, CAD, CHF, CVA, CAD, PPM , dementia, DM and cervical myelopathy who was admitted for anemia." Selected Entries 09/07/16 09/07/16 09/07/16 10:00 10:28 13:26 Breakfast Diet Tolerated Poor Fair Fair Lunch NPO Supper 09/07/16 09/08/16 09/08/16 19:52 08:00 11:19 Breakfast 0 Diet Tolerated Fair Poor Refused Lunch Supper 25% 09/09/16 09/09/16 09/09/16 09:31 10:17 13:28 Breakfast 50% Diet Tolerated Fair Fair Well Lunch 75% Supper Laboratory Tests 09/07/16 09/08/16 09/09/16 12:00 06:00 08:02 WBC 6.7 7.0 6.0 Pt is from [facility], on regular diet and thin liquid and dysphagia tx 5x's/ week, per transfer summary. CXR changes. Per nursing, cough with PO intake, accepting little of regular diet, mashed by staff. History Source: Medical Record Limitations to Obtaining History: Clinical Condition, Dementia - Past Surgical History Past Surgical History: Yes: Permanent Pacemaker - Smoking History Smoking history: Unknown if ever smoked Have you smoked in the past 12 months: No Aproximately how many cigarettes per day: 0 - Alcohol/Substance Use Hx Alcohol Use: No History - Admission Reason For Visit: ANEMIA/ACUTE RENAL FAILURE - Diagnostics X-ray: Report Reviewed - General Mental Status: Awake and Alert (Angry. Admits to feeling depressed. Wants to " go back to [place]." "I dont care anymore!"), Able to Follow Commands, Vague Attention: Distractible, Mild Impairment Ability to Follow Directions: Fair Head/Neck Control: Good - Hearing Hearing: Normal Speech Evaluation - Communication Primary Language: DJIBOUTIAN Communication: Yes: Dysarthria Oral Expression Ability: Yes: Moderate Impairment - Speech Production Able to Make Needs Known: Yes: Moderately Impaired Intelligibility: Yes: Moderately Impaired - Speech Characteristics Voice Loudness: Normal Voice Pitch: Yes: Normal Voice Phonatory-based Quality: Yes: Normal Speech Pattern: Impaired Speech Clarity: < 25% Nasal Resonance: Hypernasal Articulation: Yes: Imprecise Rate of Speech: Too Fast - Language/Auditory Comprehension Follows: Yes: 1 Stage Simple Commands - Language/Verbal Expression Able to Respond to Simple Queries: Yes: Mildly Impaired, Moderately Impaired Able to Communicate Wants and Needs: Yes: Mildly Impaired, Moderately Impaired Functional Communication Status: Yes: Mildly Impaired, Moderately Impaired - Swallow Evaluation/Bedside Assessment Current Nutritional Intake: Regular, Thin Liquids Dentition: Yes: Missing Teeth Facial Symmetry at Rest: Facial Droop Left Facial Symmetry on Retraction: Facial Droop Left Against Resistance Opening: Weak Against Resistance Closing: Weak Pucker Lips: Droops Right Smile: Droops Right Lingual Movement: Symmetric, Reduced Tip Elevation Lingual Speed of Movement: Reduced Lingual Movement Strgth Against Opposition: Reduced Soft Palate Description: Lower on Left Velopharyngeal Movement: Hypernasality, Weak Left, Reduced Elevation Laryngeal Elevation: Impaired Laryngeal Movement: Reduced Excursion, Labored,delay initiation, Reduced Velocity Rate of Intake: Impulsive Labial Seal: WFL Oral Prep Time: Increased A-P Transit: Impaired Pocketing: Present Bilaterally Timing of Swallow: Delayed Coughing/Throat Clear: Yes (intermittent) Recommendations - Speech Evaluation, Impression/Plan Impression: Dysarthria/Dysphagia/hypernasality/Bilateral facial weakness L>R. 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 Bilateral UE contracted. Angry. Admits to feeling depressed. Grossly oriented. Pt's daughter reports that his speech has gotten progressively worse. Swallowing probles are recent. She doesnt know if he has had an mRI or has seen a neurologist. Refer to PMR evaluation in EMR 2012, with more functional sp/sw - Disposition [facility] to[facility] - Dysphagia Impressions/Plan Swallowing Skills: Impaired Dysphagia Impressions: Mild Impairment, Moderate Impairment, Ongoing Evaluation , Suspect Aspiration *Silent aspiration: cannot be R/O at bedside Dysphagia Treatment Plan: Labial Exercises, Lingual Exercises, Palatal Exercises , Swallowing Exercises, Laryngeal Adduction Exer, Small Bites, Mendelsonn Maneveur, Chin Tuck/Down, Clear Pocket Food, Safe Rate, 1/2 tsp. at a time, Elevate HOB during feed Recommendations: Neuro Consult, Modified Barium Swallow (if congestion/cough noted. can be done as out pt, to upgrade diet with safety) - Recommendations Diet Consistency: Dysphagia Pureed Liquids: [place] Thick
--- NOTE | 2016-09-09 18:47 | CONSULT ---
Consult - text type - Consultation Consultation Note: 70 yo gentleman ,intermediate resident, dependent on ADLs, with contracture of upper extremities.He comes in with renal insufficiency , anemia and hypercalcemia. He has a significant past medical history of memory impairment/? ?dementia, Cervical Myelopathy, CAD, CHF s/p pacemaker, HTN, HLD and diabetes. Patient is uncooperative and has significant memory impairment. Follows simple commands.Denies any specific complaints PMH HTN DM HLD Cervical myelopathy s/p disk surgery at [place] in 2012, was at rehab and has progressively worsened , now wheel chair bound with contracrtures in extremities. Memory impairment --had it before 2012 . - Past Surgical History Past Surgical History: Yes: Permanent Pacemaker C-spine surgery for myelopathy - Smoking History Smoking history: Unknown if ever smoked Have you smoked in the past 12 months: No Aproximately how many cigarettes per day: 0 Home Medications - Allergies Allergies/Adverse Reactions: Allergies Allergy/AdvReac Type Severity Reaction Status Date / Time No Known Allergies Allergy Verified 09/06/16 18:54 - Home Medications Home Medications: Ambulatory Orders Acetaminophen [Tylenol] 650 mg PO Q6H PRN 09/06/16 Ascorbate Calcium [Vitamin C] 500 mg PO BID 09/06/16 Carvedilol [Coreg] 3.125 mg PO BID 09/06/16 Docusate Sodium [Colace -] 100 mg PO BID 09/06/16 Erythromycin 0.5% Eye Ointment [Erythromycin 0.5% Eye Ointment -] 1 applic DAILY 09/06/16 Folic Acid 1 mg PO DAILY 09/06/16 Hypromellose 0.5% Opth Soln [Artificial Tears] 1 drop OU BID 09/06/16 Megestrol Acetate Oral Susp [Megace Oral Suspension -] 20 ml PO DAILY 09/06/16 Mirtazapine [Remeron -] 30 mg PO DAILY 09/06/16 Multivitamin with Minerals [Icaps Plus] 1 each PO DAILY 09/06/16 Sodium Phosphate/Na Biphos [Fleet Adult Rectal Enema] 133 ml RC PRN PRN Current Medications Acetaminophen (Tylenol -) 650 mg PO Q6H PRN PRN Reason: PAIN Artificial Tears (Artificial Tears) 1 drop OU BID [facility] Last Admin: 09/09/16 09:07 Dose: 1 drop Carvedilol (Coreg -) 3.125 mg PO BID [facility] Last Admin: 09/09/16 09:07 Dose: 3.125 mg Docusate Sodium (Colace -) 100 mg PO BID [facility] Last Admin: 09/09/16 09:07 Dose: 100 mg Erythromycin (Erythromycin 0.5% Eye Ointment) 1 applic OU HS [facility] Last Admin: 09/08/16 21:39 Dose: 1 applic Folic Acid (Folic Acid -) 1 mg PO DAILY [facility] Last Admin: 09/09/16 09:07 Dose: 1 mg Sodium Chloride (Normal Saline -) 1,000 mls @ 125 mls/hr IV ASDIR LINDA Mirtazapine (Remeron -) 30 mg PO HS [facility] Multivitamins/Minerals (Theragran-M) 1 each PO DAILY [facility] Last Admin: 09/09/16 09:07 Dose: 1 each Polyethylene Glycol (Miralax (For Daily Use) -) 17 gm PO DAILY [facility] Last Admin: 09/09/16 14:50 Dose: 17 gm - Imaging Ultrasound: Report Reviewed (mild bilateral hydronephrosis) - Physical Examination Vital Signs: Last Vital Signs Temp Pulse Resp BP Pulse Ox 97.9 F 81 18 142/85 100 09/09/16 14:10 09/09/16 14:10 09/09/16 14:10 09/09/16 14:10 09/09/16 09:00 Oriented only in person, Constitutional: Yes: No Distress, Calm, Thin Eyes: Yes: Conjunctiva Clear HENT: Yes: Atraumatic, Normocephalic Neck: Yes: Supple, Trachea Midline Cardiovascular: Yes: Regular Rate and Rhythm, Tachycardia, Murmur (all over precordium. best heard at right sternal border) Respiratory: Yes: Regular, CTA Bilaterally Gastrointestinal: Yes: Normal Bowel Sounds, Soft ext. --contractures Assessment/Plan 70 yo gentleman ,intermediate resident, dependent on ADLs, with contracture of upper extremities.He has been wheel chair bound.He comes in with renal insufficiency , anemia and hypercalcemia. He has a significant past medical history of memory impairment/??dementia, Cervical Myelopathy, CAD, CHF s/p pacemaker, HTN, HLD and diabetes. Patient is uncooperative and has significant memory impairment. Follows simple commands.Denies any specific complaints Concern for myeloma given elevated globulin level, anemia, hypercalcemia, renal failure. CT scan also shows b/lhydronephrosis Will check Immunoglobulin levels, SFLCA Discussed in great detail with his daughter ( health careproxy, per her) about possible diagnosis of myeloma,need for bone marrow to confirm this,renal failure , possible side effects of therapy etc. PAtients daughter has not yet decided on goals of care Will get neuro consult hypercalcemia--hydration start calcitonin\ check cultures ?empiric steroids
--- NOTE | 2016-09-09 18:53 | CONS ---
DATE OF CONSULTATION: 09/09/2016 HISTORY OF PRESENT ILLNESS: I am asked to evaluate this 70-year-old gentleman with a significant anemia. The patient is a 70-year-old gentleman who reside at [facility]. He has a history of dementia, coronary artery disease status post permanent pacemaker, hypertension, hyperlipidemia, diabetes mellitus. He also apparently has a possible anemia. The patient was sent from the [place] [facility] to the emergency room with a hemoglobin count to 7.5 on August 30, 2016, and repeat on September 06, 2016 are 6.3. The patient has no known history of anemia or GI bleeding. There was no report of black or tarry stool or bright red blood per rectum at the time of his admission. His laboratory tests included a white count of 8.8, hemoglobin 6.8, hematocrit 20.2 with MCV of 95.6. His chemistry was unremarkable with a serum iron of 61, TIBC of 156, and a 39% iron saturation. His liver chemistries are unremarkable. His B12 level was normal as well. The patient has no history of peptic ulcer disease, colitis or polyps. There is no known history of GI bleeding as aforementioned. The patient's hospital course has been notable for blood transfusion, and the patient has been monitored his stool, Hemoccult was negative and as mentioned his iron studies unremarkable. He has also been noted to have a significant elevation in his BUN and creatinine of 63 and 3.7 and has been seen by nephrology. PHYSICAL EXAMINATION: General: Patient is well-developed, well-nourished gentleman with eyes open, minimally verbal in no distress. Lungs: Grossly clear. Cardiac: Regular rate and rhythm. Abdomen: Soft. Normoactive bowel sounds. No palpable mass or splenomegaly. IMPRESSION: Patient with severe anemia of unclear etiology, has guaiac negative stool and normal iron studies and normal red blood cell indices, no signs of gastrointestinal bleeding at the present time. Await hematology evaluation to evaluate the anemia and will defer gastrointestinal workup at the present time. Will follow as needed. NIXON BARNES M.D. JUNAID/[id number]
[2016-09-09] MEDS ORDERED: SODIUM CHLORIDE 1,000 ML IV SCH (19:15)
[2016-09-09] MEDS: ERYTHROMYCIN 0.5% OPHTHALMIC OINTMENT 3.5 GM TUBE OU SCH (21:44)
[2016-09-09] MEDS: MIRTAZAPINE 15 MG TABLET (FP) PO SCH (21:44)
[2016-09-09] MEDS ORDERED: SODIUM CHLORIDE 0.9% 1000 ML INFUS.BAG IV SCH (22:00)
[2016-09-09] MEDS: CALCITONIN - SALMON SYNTHETIC 400 UNIT/2 ML VIAL SQ SCH (23:05)
[2016-09-10] MEDS ORDERED: PT OWN MED DRAWER 7, Y5N ONE ×3 (10:28→21:44)
[2016-09-10] MEDS: DOCUSATE SODIUM 100 MG CAPSULE (FP) PO SCH ×2 (10:30→21:48)
[2016-09-10] MEDS: MULTIVITAMINS THER W-MINERALS COMBO TABLET (FP) PO SCH (10:31)
[2016-09-10] MEDS: ARTIFICIAL TEARS (POLYVINYL ALCOHOL 1.4%) OPTH DROPS OU SCH ×2 (10:31→21:48)
[2016-09-10] MEDS: FOLIC ACID 1 MG TABLET (FP) PO SCH (10:31)
[2016-09-10] MEDS: CARVEDILOL 3.125 MG TABLET (FP) PO SCH ×2 (10:31→21:46)
[2016-09-10] MEDS ORDERED: REFRIGERATED ANITBIOTICS ONE ×2 (10:35→21:44)
[2016-09-10 10:46] LABS: BASOPHIL 0.5 % (0-2.0); EOSINOPHIL 1.2 % (0-4.5); MCH 31.1 pg (25.7-33.7); MCHC 33.1 g/dl (32.0-35.9); MEAN CELL VOLUME 93.8 fl (80-96); MEAN PLT VOLUME 6.6 fl (7.5-11.1); PLATELET COUNT 141 K/MM3 (134-434); RDW 14.4 % (11.9-15.9)
[2016-09-10 10:53] LABS: ALK PHOS 30 U/L (32-92); ANION GAP 6 (8-16); CALCIUM 10.1 mg/dl (8.4-10.2); CO2 16 mmol/L (22-28); CREATININE 2.9 mg/dl (0.6-1.3); GLUCOSE,RANDOM 97 mg/dl (74-106); MAGNESIUM 1.7 mg/dL (1.8-2.4); PHOSPHOROUS 3.2 mg/dl (2.5-4.6); SGOT/AST 19 U/L (10-42); TOT PROT 9.7 g/dl (6.4-8.3)
[2016-09-10] MEDS: POLYETHYLENE GLYCOL 3350 119 GM BTL PO SCH (11:01)
[2016-09-10 11:06] LABS: BILIRUBIN,TOTAL < 0.3 mg/dl (0.2-1.0)
[2016-09-10 11:07] LABS: SGPT/ALT 9 U/L (10-40)
[2016-09-10] MEDS ORDERED: MAGNESIUM SULFATE 2 GM in SODIUM CHLORIDE 100 ML IVPB ONE (11:11)
[2016-09-10] MEDS ORDERED: MAGNESIUM SULF 50% (8.12 MEQ/2 ML-1 GM VIAL) IVPB ONE (11:30)
[2016-09-10] MEDS: CALCITONIN - SALMON SYNTHETIC 400 UNIT/2 ML VIAL SQ SCH ×2 (11:45→21:47)
--- NOTE | 2016-09-10 11:49 | PN ---
Progress Note, Physician History of Present Illness: Pt seen and examined at bedside. He is awake and answers simple questions. He denies shortness of breath. - Current Medication List Current Medications: Active Medications Acetaminophen (Tylenol -) 650 mg PO Q6H PRN PRN Reason: PAIN Artificial Tears (Artificial Tears) 1 drop OU BID [facility] Last Admin: 09/10/16 10:31 Dose: 1 drop Calcitonin (Miacalcin Injection -) 300 unit SQ BID [facility] Stop: 09/11/16 10:01 Last Admin: 09/09/16 23:05 Dose: 300 unit Carvedilol (Coreg -) 3.125 mg PO BID [facility] Last Admin: 09/10/16 10:31 Dose: 3.125 mg Docusate Sodium (Colace -) 100 mg PO BID [facility] Last Admin: 09/10/16 10:30 Dose: 100 mg Erythromycin (Erythromycin 0.5% Eye Ointment) 1 applic OU HS [facility] Last Admin: 09/09/16 21:44 Dose: 1 applic Folic Acid (Folic Acid -) 1 mg PO DAILY [facility] Last Admin: 09/10/16 10:31 Dose: 1 mg Sodium Chloride (Normal Saline -) 1,000 mls @ 83 mls/hr IV ASDIR [facility] Mirtazapine (Remeron -) 30 mg PO HS [facility] Last Admin: 09/09/16 21:44 Dose: 30 mg Multivitamins/Minerals (Theragran-M) 1 each PO DAILY [facility] Last Admin: 09/10/16 10:31 Dose: 1 each Polyethylene Glycol (Miralax (For Daily Use) -) 17 gm PO DAILY [facility] Last Admin: 09/10/16 11:01 Dose: Not Given - Objective Vital Signs: Vital Signs Temperature 98.0 F 09/10/16 05:23 Pulse Rate 85 09/10/16 05:23 Respiratory Rate 18 09/10/16 09:00 Blood Pressure 143/70 09/10/16 05:23 O2 Sat by Pulse Oximetry (%) 100 09/10/16 09:00 Constitutional: Yes: Calm Eyes: Yes: Conjunctiva Clear HENT: Yes: Atraumatic Cardiovascular: Yes: S1, S2 Respiratory: Yes: CTA Bilaterally Gastrointestinal: Yes: Soft Genitourinary: Yes: Singh Present Musculoskeletal: Yes: Muscle Weakness Edema: Yes Neurological: Yes: Pre-Existing Deficit Labs: CBC, BMP 09/10/16 08:12 09/10/16 08:12 Assessment/Plan Current Medications Generic Name Dose Route Start Last Admin Trade Name Freq PRN Reason Stop Dose Admin Acetaminophen 650 mg 09/07/16 12:23 Tylenol - PO Q6H PRN PAIN Artificial Tears 1 drop 09/07/16 10:00 09/10/16 10:31 Artificial Tears OU 1 drop BID [facility] Administration Calcitonin 300 unit 09/09/16 22:00 09/09/16 23:05 Miacalcin Injection - SQ 09/11/16 10:01 300 unit BID [facility] Administration Carvedilol 3.125 mg 09/07/16 10:00 09/10/16 10:31 Coreg - PO 3.125 mg BID [facility] Administration Docusate Sodium 100 mg 09/07/16 22:00 09/10/16 10:30 Colace - PO 100 mg BID [facility] Administration Erythromycin 1 applic 09/07/16 22:00 09/09/16 21:44 Erythromycin 0.5% Eye Ointment OU 1 applic HS [facility] Administration Folic Acid 1 mg 09/07/16 10:00 09/10/16 10:31 Folic Acid - PO 1 mg DAILY [facility] Administration Sodium Chloride 1,000 mls @ 83 mls/hr 09/09/16 19:30 Normal Saline - IV ASDIR [facility] Mirtazapine 30 mg 09/09/16 22:00 09/09/16 21:44 Remeron - PO 30 mg HS [facility] Administration Multivitamins/Minerals 1 each 09/07/16 16:30 09/10/16 10:31 Theragran-M PO 1 each DAILY [facility] Administration Polyethylene Glycol 17 gm 09/09/16 14:45 09/10/16 11:01 Miralax (For Daily Use) - PO Not Given DAILY [facility] Laboratory Tests 09/08/16 09/09/16 09/10/16 06:00 08:02 08:12 Magnesium 1.7 L VAHE M-Jh Pending Free [place] LC, Quant Pending Free Lambda LC, Quant Pending Free [place]/Lambda Ratio Pending Impression 1. PANCHO 2. hypercalcemia 3. HTN 4. hx CVA 5. CAD 6. CHF 7. Chol 8. DM Plan - renal function is improving - cont with fluids and close monitoring of volume status - urology consultation for the bilateral hydronephrosis - follow up heme workup - renal workup is in progress - family to decide how aggressive they want workup and therapy - discussed with medical team - renal failure can be secondary in part to obstruction - will follow Dr Silva
--- NOTE | 2016-09-10 12:13 | PN ---
[id number] is a 70 year-old male with a PMH of HTN, HLD, CAD, CHF, CVA, CAD , PPM, dementia, DM and cervical myelopathy who was admitted for anemia. Vital Signs Period Temp Pulse Resp BP Sys/Mcmahon Pulse Ox Last 24 Hr 97.9 F-98.4 F 81-90 18-19 142-145/70-85 100-100 physical examination GENERAL: The patient is awake, alert, and oriented x1, agitated. . HEAD: Normal with no signs of trauma. EYES: PERRL, extraocular movements intact, sclera anicteric, conjunctiva clear. No ptosis. ENT: Ears normal, nares patent, oropharynx clear without exudates, moist mucous membranes. NECK: Trachea midline, full range of motion, supple. LUNGS: Breath sounds equal, clear to auscultation bilaterally, no wheezes, no crackles, no accessory muscle use. HEART: Regular rate and rhythm, S1, S2, 3/6 systolic murmur, rub or gallop. ABDOMEN: Soft, nontender, nondistended, normoactive bowel sounds, no guarding, no rebound, no hepatosplenomegaly, no masses. : winston draining clear yellow urine EXTREMITIES: 2+ pulses, warm, well-perfused, no edema. upper extremeties contracted. NEUROLOGICAL: Cranial nerves II through XII grossly intact. slurred speech ( baseline), gait not observed. PSYCH: Normal mood, normal affect. SKIN: Warm, dry, normal turgor, no rashes or lesions noted Laboratory Results - last 24 hr 09/08/16 09/10/16 09/10/16 06:00 07:00 07:00 WBC RBC Hgb Hct MCV MCHC RDW Plt Count MPV Neutrophils % Lymphocytes % Monocytes % Eosinophils % Basophils % ESR > 130 H Sodium Potassium Chloride Carbon Dioxide Anion Gap BUN Creatinine Creat Clearance w eGFR Random Glucose Calcium Phosphorus Magnesium Total Bilirubin AST ALT Alkaline Phosphatase LD Total 81 L Total Protein Albumin Hepatitis C Antibody <0.1 09/10/16 09/10/16 08:12 08:12 WBC 8.0 D RBC 3.32 L Hgb 10.3 L D Hct 31.1 L D MCV 93.8 MCHC 33.1 RDW 14.4 Plt Count 141 MPV 6.6 L D Neutrophils % 73.0 Lymphocytes % 19.6 Monocytes % 5.7 Eosinophils % 1.2 Basophils % 0.5 ESR Sodium 138 Potassium 3.8 Chloride 116 H Carbon Dioxide 16 L Anion Gap 6 L BUN 47 H Creatinine 2.9 H Creat Clearance w eGFR 21.68 Random Glucose 97 Calcium 10.1 Phosphorus 3.2 Magnesium 1.7 L Total Bilirubin < 0.3 AST 19 ALT 9 L Alkaline Phosphatase 30 L LD Total Total Protein 9.7 H Albumin 2.0 L Hepatitis C Antibody Active Medications Generic Name Dose Route Start Last Admin Trade Name Freq PRN Reason Stop Dose Admin Acetaminophen 650 mg 09/07/16 12:23 Tylenol - PO Q6H PRN PAIN Artificial Tears 1 drop 09/07/16 10:00 09/10/16 10:31 Artificial Tears OU 1 drop BID [facility] Administration Calcitonin 300 unit 09/09/16 22:00 09/09/16 23:05 Miacalcin Injection - SQ 09/11/16 10:01 300 unit BID [facility] Administration Carvedilol 3.125 mg 09/07/16 10:00 09/10/16 10:31 Coreg - PO 3.125 mg BID [facility] Administration Docusate Sodium 100 mg 09/07/16 22:00 09/10/16 10:30 Colace - PO 100 mg BID [facility] Administration Erythromycin 1 applic 09/07/16 22:00 09/09/16 21:44 Erythromycin 0.5% Eye Ointment OU 1 applic HS [facility] Administration Folic Acid 1 mg 09/07/16 10:00 09/10/16 10:31 Folic Acid - PO 1 mg DAILY [facility] Administration Sodium Chloride 1,000 mls @ 83 mls/hr 09/09/16 19:30 Normal Saline - IV ASDIR [facility] Mirtazapine 30 mg 09/09/16 22:00 09/09/16 21:44 Remeron - PO 30 mg HS [facility] Administration Multivitamins/Minerals 1 each 09/07/16 16:30 09/10/16 10:31 Theragran-M PO 1 each DAILY [facility] Administration Polyethylene Glycol 17 gm 09/09/16 14:45 09/10/16 11:01 Miralax (For Daily Use) - PO Not Given DAILY [facility] Microbiology 09/09/16 20:15 Blood - Peripheral Venous Blood Culture - Preliminary Pending Organism imaging Ultrasound of kidney/bladder bilateral hydronephrosis CT of abd/pelvis, bilateral pleural effusions, moderately severe bilateral hydronephrosis and hydroureter without obstruction fecal impaction ASSESSMENT/PLAN: 1) heme: normocytic Anemia - transfused 2 units (09/07/16) hemoglobin 8.8 stable - patient evaluated by hematology for workup of multiple myeloma 2) nephrology - ruby creatine 2.9 baseline 0.8 - continue IVF -case discussed with urology, Dr Velez, will evaluate patient today - Appreciate urology input - nephrology consulted and following 3) card Hypertension - continue Coreg 4) psych: Dementia/depression - cont remeron 5) ID - one set of blood cultures positive gram-negative bacilli, repeat blood cultures ordered - Case discussed with ID Dr. Chaney, will start cefepime DVT PPX: defer heparin due to severe anemia for now, PT, SCD/JESSIE FEN Electrolytes: replete as indicated Nutrition: low sodium diet Dispo: lengthy discussion with the daughter, Aster Mcmillan (HCP), declines bone marrow biopsy at this time. pt currently requires inpatient care. Visit type - Emergency Visit Emergency Visit: Yes ED Registration Date: 09/06/16 Care time: The patient presented to the Emergency Department on the above date and was hospitalized for further evaluation of their emergent condition. - New Patient This patient is new to me today: No - Critical Care Critical Care patient: No - Discharge Referral Referred to [facility] Med P.C.: No
--- NOTE | 2016-09-10 12:58 | CONSULT ---
Consult Consult Specialty:: Neurology Reason for Consultation:: Contractures, dementia, weakness - History of Present Illness History of Present Illness: 70 year old man, skilled nursing resident who is dependent on ADLS, with chronic history of upper extremity contractures for the last several years, presented to [facility] with renal insufficiency, anemia, hypercalcemia. Neurology consulted for possible dementia. It is unclear the time line for memory deficits but as per records been ongoing. Difficult to obtain history from patient, but it appears he saw Dr. John in the past and weakness/ contractures were thought to be secondary to history of spinal stenosis. Past medical history Hypertension Diabetes HLD Cervical myelopathy s/p disk surgery at [place] in 2012, was at rehab and has progressively worsened, now wheel chair bound with contractures Memory impairment, chronic - Past Surgical History Past Surgical History: Yes: Permanent Pacemaker - Alcohol/Substance Use Hx Alcohol Use: No - Smoking History Smoking history: Unknown if ever smoked Have you smoked in the past 12 months: No Aproximately how many cigarettes per day: 0 Home Medications - Allergies Allergies/Adverse Reactions: Allergies Allergy/AdvReac Type Severity Reaction Status Date / Time No Known Allergies Allergy Verified 09/06/16 18:54 - Home Medications Home Medications: Ambulatory Orders Acetaminophen [Tylenol] 650 mg PO Q6H PRN 09/06/16 Ascorbate Calcium [Vitamin C] 500 mg PO BID 09/06/16 Carvedilol [Coreg] 3.125 mg PO BID 09/06/16 Docusate Sodium [Colace -] 100 mg PO BID 09/06/16 Erythromycin 0.5% Eye Ointment [Erythromycin 0.5% Eye Ointment -] 1 applic DAILY 09/06/16 Folic Acid 1 mg PO DAILY 09/06/16 Hypromellose 0.5% Opth Soln [Artificial Tears] 1 drop OU BID 09/06/16 Megestrol Acetate Oral Susp [Megace Oral Suspension -] 20 ml PO DAILY 09/06/16 Mirtazapine [Remeron -] 30 mg PO DAILY 09/06/16 Multivitamin with Minerals [Icaps Plus] 1 each PO DAILY 09/06/16 Sodium Phosphate/Na Biphos [Fleet Adult Rectal Enema] 133 ml RC PRN PRN Review of Systems Unable to obtain ROS, reason: mental status Physical Exam Vital Signs: Vital Signs Temperature 98.0 F 09/10/16 05:23 Pulse Rate 85 09/10/16 05:23 Respiratory Rate 18 09/10/16 09:00 Blood Pressure 143/70 09/10/16 05:23 O2 Sat by Pulse Oximetry (%) 100 09/10/16 09:00 Constitutional: Yes: No Distress HENT: Yes: Atraumatic, Normocephalic Cardiovascular: Yes: S1, S2 Respiratory: Yes: Regular Neurological: Yes: Other (Awake, alert, knows name EOMI, blinks to visual threat bilaterally, face symmetric Motor hypertonia noted in all extremities right>left, difficult to assess muscle strength but able to slightly move hands and wiggle toes Sensory intact to light touch) Labs: CBC, BMP 09/10/16 08:12 09/10/16 08:12 Assessment/Plan 70 year old man, skilled nursing resident who is dependent on ADLS, with chronic history of upper extremity contractures for the last several years, presented to [facility] with renal insufficiency, anemia, hypercalcemia. Neurology consulted for possible dementia. It is unclear the time line for memory deficits but as per records been ongoing. Difficult to obtain history from patient, but it appears he saw Dr. John in the past and weakness/ contractures were thought to be secondary to history of spinal stenosis. Exam significant for increased tone in all extremities, patient knows name and is awake Recommend MRI brain and cervical spine without contrast if consistent with goals of care If above show no change from prior exams or any acute abnormality (history of cervical stenosis), patient can follow up with neurology as outpatient for EMG/ NCV and further assessment of symptoms Recommend B12 level, folate, TSH Thank you for the consult
[2016-09-10] MEDS ORDERED: CEFEPIME 2 GM/100 ML BAG PRE-DOCKED IVPB ONE (13:30)
[2016-09-10] MEDS ORDERED: MAGNESIUM SULF 50% (8.12 MEQ/2 ML-1 GM VIAL) ONE (16:38)
--- NOTE | 2016-09-10 17:39 | PN ---
Progress Note (short form) - Note Progress Note: ID Consult dictated Gram Negative bacteremia/ sepsis, possible focus Renal failure Hydronephrosis OBS Pending c/s, empiric cefepime, adjusted for renal failure
[2016-09-10 20:03] LABS: URINE APPEARANCE Clear; URINE BILIRUBIN Negative (NEGATIVE); URINE BLOOD 2+ (NEGATIVE); URINE COLOR YELLOW; URINE GLUCOSE (UA) Negative (NEGATIVE); URINE KETONE Negative (NEGATIVE); URINE LEUK ESTERASE 1+ (NEGATIVE); URINE NITRITE Negative (NEGATIVE); URINE PROTEIN 2+ (NEGATIVE); URINE UROBILINOGEN 0.2 E.U/dl (0.2-1.0)
[2016-09-10 21:18] LABS: URINE BACTERIA FEW /hpf (NEGATIVE); URINE WBC 0-2 (3-5)
[2016-09-10] MEDS: MIRTAZAPINE 15 MG TABLET (FP) PO SCH (21:30)
[2016-09-10] MEDS: ERYTHROMYCIN 0.5% OPHTHALMIC OINTMENT 3.5 GM TUBE OU SCH (21:48)
[2016-09-10] MEDS ORDERED: CEFEPIME HCL 1 GM VIAL (RESTRICTED TO ID) IVPB SCH (22:00)
[2016-09-11 08:31] LABS: BASOPHIL 0.3 % (0-2.0); EOSINOPHIL 1.2 % (0-4.5); MCH 31.5 pg (25.7-33.7); MCHC 33.4 g/dl (32.0-35.9); MEAN CELL VOLUME 94.3 fl (80-96); MEAN PLT VOLUME 6.1 fl (7.5-11.1); PLATELET COUNT 163 K/MM3 (134-434); RDW 14.4 % (11.9-15.9); WHITE BLOOD COUNT 6.9 K/mm3 (4.0-10.0)
[2016-09-11 08:44] LABS: CALCIUM 9.6 mg/dl (8.4-10.2); CREATININE 2.5 mg/dl (0.6-1.3)
--- NOTE | 2016-09-11 09:32 | CONSULT ---
Consult Consult Specialty:: urology Reason for Consultation:: hydronephrosis. renal failure - History of Present Illness Chief Complaint: hydronephrosis History of Present Illness: 70 year old male with a long standing neurological condition. He is also newly diagnosed with multiple myeloma. Creatinine has slowly improved with winston drainage. CT is consistent chronic neurogenic bladder with high pressure bladder and reflux to kidneys bilaterally. Thickened bladder wall with bilateral hydronephrosis. - History Source History Provided By: Medical Record Limitations to Obtaining History: Clinical Condition - Past Medical History Renal/: Yes: Neurogenic Bladder - Past Surgical History Past Surgical History: Yes: Permanent Pacemaker - Alcohol/Substance Use Hx Alcohol Use: No - Smoking History Smoking history: Unknown if ever smoked Have you smoked in the past 12 months: No Aproximately how many cigarettes per day: 0 Home Medications - Allergies Allergies/Adverse Reactions: Allergies Allergy/AdvReac Type Severity Reaction Status Date / Time No Known Allergies Allergy Verified 09/06/16 18:54 - Home Medications Home Medications: Ambulatory Orders Acetaminophen [Tylenol] 650 mg PO Q6H PRN 09/06/16 Ascorbate Calcium [Vitamin C] 500 mg PO BID 09/06/16 Carvedilol [Coreg] 3.125 mg PO BID 09/06/16 Docusate Sodium [Colace -] 100 mg PO BID 09/06/16 Erythromycin 0.5% Eye Ointment [Erythromycin 0.5% Eye Ointment -] 1 applic DAILY 09/06/16 Folic Acid 1 mg PO DAILY 09/06/16 Hypromellose 0.5% Opth Soln [Artificial Tears] 1 drop OU BID 09/06/16 Megestrol Acetate Oral Susp [Megace Oral Suspension -] 20 ml PO DAILY 09/06/16 Mirtazapine [Remeron -] 30 mg PO DAILY 09/06/16 Multivitamin with Minerals [Icaps Plus] 1 each PO DAILY 09/06/16 Sodium Phosphate/Na Biphos [Fleet Adult Rectal Enema] 133 ml RC PRN PRN Review of Systems - Review of Systems Genitourinary: reports: No Symptoms Physical Exam Vital Signs: Vital Signs Temperature 98.7 F 09/11/16 06:00 Pulse Rate 92 H 09/11/16 06:00 Respiratory Rate 20 09/11/16 06:00 Blood Pressure 128/51 09/11/16 06:00 O2 Sat by Pulse Oximetry (%) 97 09/11/16 06:00 Renal/: Yes: Winston Present. No: Bladder Distention, CVA Tenderness - Left, CVA Tenderness - Right, Hematuria Labs: CBC, BMP 09/11/16 07:00 09/11/16 07:00 Imaging - Results Cat Scan: Report Reviewed Problem List - Problems (1) Neurogenic urinary bladder disorder Assessment/Plan: patient with high pressure bladder causing retrograde pressure and reflux. Would keep winston catheter in. If family agrees and patient is stable can place a suprapubic tube once all infections are resolved. Code(s): N31.9 - NEUROMUSCULAR DYSFUNCTION OF BLADDER, UNSPECIFIED
--- NOTE | 2016-09-11 09:38 | PN ---
Progress Note, Physician History of Present Illness: Awake, alert Offers no complaints Afebrile BC GNR - Current Medication List Current Medications: Active Medications Acetaminophen (Tylenol -) 650 mg PO Q6H PRN PRN Reason: PAIN Artificial Tears (Artificial Tears) 1 drop OU BID [facility] Last Admin: 09/10/16 21:48 Dose: 1 drop Calcitonin (Miacalcin Injection -) 300 unit SQ BID [facility] Stop: 09/11/16 10:01 Last Admin: 09/10/16 21:47 Dose: 300 unit Carvedilol (Coreg -) 3.125 mg PO BID [facility] Last Admin: 09/10/16 21:46 Dose: 3.125 mg Docusate Sodium (Colace -) 100 mg PO BID [facility] Last Admin: 09/10/16 21:48 Dose: 100 mg Erythromycin (Erythromycin 0.5% Eye Ointment) 1 applic OU HS [facility] Last Admin: 09/10/16 21:48 Dose: 1 applic Folic Acid (Folic Acid -) 1 mg PO DAILY [facility] Last Admin: 09/10/16 10:31 Dose: 1 mg Sodium Chloride (Normal Saline -) 1,000 mls @ 83 mls/hr IV ASDIR [facility] Cefepime HCl 0.5 gm/ Dextrose 100 mls @ 200 mls/hr IVPB BID [facility] Mirtazapine (Remeron -) 30 mg PO HS [facility] Last Admin: 09/10/16 21:30 Dose: 30 mg Multivitamins/Minerals (Theragran-M) 1 each PO DAILY [facility] Last Admin: 09/10/16 10:31 Dose: 1 each Polyethylene Glycol (Miralax (For Daily Use) -) 17 gm PO DAILY [facility] Last Admin: 09/10/16 11:01 Dose: Not Given - Objective Vital Signs: Vital Signs Temperature 98.7 F 09/11/16 06:00 Pulse Rate 92 H 09/11/16 06:00 Respiratory Rate 20 09/11/16 06:00 Blood Pressure 128/51 09/11/16 06:00 O2 Sat by Pulse Oximetry (%) 97 09/11/16 06:00 Constitutional: Yes: No Distress Eyes: Yes: Conjunctiva Clear Cardiovascular: Yes: Regular Rate and Rhythm, S1, S2 Respiratory: Yes: CTA Bilaterally Gastrointestinal: Yes: Normal Bowel Sounds, Soft. No: Tenderness Musculoskeletal: Yes: Other (+ Contractures) Edema: No Labs: CBC, BMP 09/11/16 07:00 09/11/16 07:00 Assessment/Plan Gram Negative bacteremia/sepsis, likely source Hydronephrosis Renal failure Await identification of blood isolate Continue cefepime, adjusted for renal failure
--- NOTE | 2016-09-11 09:56 | PN ---
Progress Note, UTILITY LOCATOR - Note Progress Note: Selected Entries 09/09/16 09/09/16 09/10/16 10:17 13:28 05:23 Breakfast 50% Lunch 75% Temperature 98.0 F 09/10/16 09/10/16 09/10/16 09:00 14:26 22:38 Breakfast 50% Lunch Temperature 98.5 F 98.2 F 09/11/16 06:00 Breakfast Lunch Temperature 98.7 F Laboratory Tests 09/10/16 09/11/16 08:12 07:00 WBC 8.0 D 6.9 Dysarthria/dysphagia.Poor insight. "I dont care" Most of breakfast tray untouched. Took OJ for me. Tolerating nectar thick liquid. Swallow is delayed with reduced oral pharyngeal coordination. w/u regarding etiology of neurologic deficits in progress. REC: Magic cup tid. Ensure compact tid.
[2016-09-11 10:13] LABS: IGG IMMUNOGLOBULIN 258 mg/dL (700-1600); IGM IMMUNOGLOBULIN 7 mg/dL (20-172)
[2016-09-11] MEDS: CARVEDILOL 3.125 MG TABLET (FP) PO SCH ×2 (10:18→21:48)
[2016-09-11] MEDS: DOCUSATE SODIUM 100 MG CAPSULE (FP) PO SCH ×2 (10:18→21:44)
[2016-09-11] MEDS: ARTIFICIAL TEARS (POLYVINYL ALCOHOL 1.4%) OPTH DROPS OU SCH ×2 (10:18→21:44)
[2016-09-11] MEDS: CALCITONIN - SALMON SYNTHETIC 400 UNIT/2 ML VIAL SQ SCH (10:19)
[2016-09-11] MEDS: POLYETHYLENE GLYCOL 3350 119 GM BTL PO SCH (10:19)
[2016-09-11] MEDS: FOLIC ACID 1 MG TABLET (FP) PO SCH (10:19)
[2016-09-11] MEDS: CEFEPIME 0.5 GM in DEXTROSE 5%-WATER - 100 ML IVPB SCH ×2 (10:19→21:48)
[2016-09-11] MEDS ORDERED: PT OWN MED DRAWER 7, Y5N ONE ×2 (10:22→21:14)
[2016-09-11] MEDS: MULTIVITAMINS THER W-MINERALS COMBO TABLET (FP) PO SCH (10:26)
--- NOTE | 2016-09-11 10:46 | PN ---
Progress Note, Physician History of Present Illness: Pt seen and examined at bedside. He is awake and appears comfortable. He denies shortness of breath. - Current Medication List Current Medications: Active Medications Acetaminophen (Tylenol -) 650 mg PO Q6H PRN PRN Reason: PAIN Artificial Tears (Artificial Tears) 1 drop OU BID [facility] Last Admin: 09/11/16 10:18 Dose: 1 drop Carvedilol (Coreg -) 3.125 mg PO BID [facility] Last Admin: 09/11/16 10:18 Dose: 3.125 mg Docusate Sodium (Colace -) 100 mg PO BID [facility] Last Admin: 09/11/16 10:18 Dose: 100 mg Erythromycin (Erythromycin 0.5% Eye Ointment) 1 applic OU HS [facility] Last Admin: 09/10/16 21:48 Dose: 1 applic Folic Acid (Folic Acid -) 1 mg PO DAILY [facility] Last Admin: 09/11/16 10:19 Dose: 1 mg Sodium Chloride (Normal Saline -) 1,000 mls @ 83 mls/hr IV ASDIR [facility] Cefepime HCl 0.5 gm/ Dextrose 100 mls @ 200 mls/hr IVPB BID [facility] Last Admin: 09/11/16 10:19 Dose: 200 mls/hr Mirtazapine (Remeron -) 30 mg PO HS [facility] Last Admin: 09/10/16 21:30 Dose: 30 mg Multivitamins/Minerals (Theragran-M) 1 each PO DAILY [facility] Last Admin: 09/11/16 10:26 Dose: 1 each Polyethylene Glycol (Miralax (For Daily Use) -) 17 gm PO DAILY [facility] Last Admin: 09/11/16 10:19 Dose: Not Given - Objective Vital Signs: Vital Signs Temperature 98.7 F 09/11/16 06:00 Pulse Rate 92 H 09/11/16 06:00 Respiratory Rate 20 09/11/16 06:00 Blood Pressure 128/51 09/11/16 06:00 O2 Sat by Pulse Oximetry (%) 97 09/11/16 06:00 Constitutional: Yes: Calm Eyes: Yes: Conjunctiva Clear HENT: Yes: Atraumatic Cardiovascular: Yes: S1, S2 Respiratory: Yes: CTA Bilaterally Gastrointestinal: Yes: Soft Genitourinary: Yes: Winston Present Musculoskeletal: Yes: Muscle Weakness Edema: No Neurological: Yes: Pre-Existing Deficit Labs: CBC, BMP 09/11/16 07:00 09/11/16 07:00 Assessment/Plan Current Medications Generic Name Dose Route Start Last Admin Trade Name Antwan PRN Reason Stop Dose Admin Acetaminophen 650 mg 09/07/16 12:23 Tylenol - PO Q6H PRN PAIN Artificial Tears 1 drop 09/07/16 10:00 09/11/16 10:18 Artificial Tears OU 1 drop BID [facility] Administration Carvedilol 3.125 mg 09/07/16 10:00 09/11/16 10:18 Coreg - PO 3.125 mg BID [facility] Administration Docusate Sodium 100 mg 09/07/16 22:00 09/11/16 10:18 Colace - PO 100 mg BID [facility] Administration Erythromycin 1 applic 09/07/16 22:00 09/10/16 21:48 Erythromycin 0.5% Eye Ointment OU 1 applic HS [facility] Administration Folic Acid 1 mg 09/07/16 10:00 09/11/16 10:19 Folic Acid - PO 1 mg DAILY [facility] Administration Sodium Chloride 1,000 mls @ 83 mls/hr 09/09/16 19:30 Normal Saline - IV ASDIR [facility] Cefepime HCl 0.5 gm/ Dextrose 100 mls @ 200 mls/hr 09/11/16 10:00 09/11/16 10: 19 IVPB 200 mls/hr BID [facility] Administration Mirtazapine 30 mg 09/09/16 22:00 09/10/16 21:30 Remeron - PO 30 mg HS [facility] Administration Multivitamins/Minerals 1 each 09/07/16 16:30 09/11/16 10:26 Theragran-M PO 1 each DAILY [facility] Administration Polyethylene Glycol 17 gm 09/09/16 14:45 09/11/16 10:19 Miralax (For Daily Use) - PO Not Given DAILY [facility] Laboratory Tests 09/09/16 08:02 Free [place] LC, Quant 2140.00 H Free Lambda LC, Quant 16.06 Free [place]/Lambda Ratio 133.25 H Impression 1. PANCHO 2. hypercalcemia 3. HTN 4. hx CVA 5. CAD 6. CHF 7. Chol 8. DM Plan - renal function continues to improve - kappa chains are elevated, discussed with primary team, family do not want a bone marrow - cont with fluids - calcium is improving - urology input appreciated - keep winston in place and monitor ouput - will continue with fluids - monitor calcium levels - follow up spep - follow pth Dr Silva
--- NOTE | 2016-09-11 12:36 | CONS ---
DATE OF CONSULTATION: DATE OF DICTATION: 09/11/2016 HISTORY OF PRESENT ILLNESS: This is a 70-year-old male evaluated for positive blood cultures. History was obtained from the chart as he cannot give a history secondary to dementia. He was admitted to the hospital on September 06, 2016, after he was noted to be anemic at his residence. The patient was transfused packed red blood cells. His hospital course was complicated by acute renal failure. He was seen in consultation by Urology after imaging studies revealed hydronephrosis. He was felt to have a neurogenic bladder. His course has now been complicated by positive blood cultures, gram-negative rods. He is awake and responsive. However, he is confused. He offers no complaints. No high-grade fevers, shaking chills, labored breathing, cough, sputum production, vomiting, or diarrhea. No reports of grossly purulent urine. PAST MEDICAL HISTORY: Positive for dementia, coronary artery disease, congestive heart failure, hypertension, hyperlipidemia, diabetes mellitus. PAST SURGICAL HISTORY: Status post permanent pacemaker and cervical spine surgery in 2012. ALLERGIES: No known allergies. MEDICATIONS: Tylenol, Coreg, Colace, Remeron. SOCIAL HISTORY: He lives in a care home facility. No active tobacco or alcohol use. SYSTEMS REVIEW: Neurologic: Positive for dementia. Cardiac: Negative for chest pain or palpitations. Respiratory: Negative for cough or sputum production. Gastrointestinal: Negative for vomiting or diarrhea. Genitourinary: As per HPI. LABORATORY DATA: White count 6.9, hematocrit 24.8, platelet count 163. BUN 47, creatinine 2.9. Urinalysis 0-2 white cells. Chest x-ray negative. Blood cultures growing gram-negative rods. PHYSICAL EXAMINATION: General: He is awake and responsive. However, he is confused. Vital signs: Temperature 98.7, blood pressure 128/51, pulse 92 and regular, respirations 20 per minute. HEENT: Sclerae anicteric. Heart: Heart sounds S1, S2. Lungs: Air entry bilaterally. Abdomen: Soft. No tenderness elicited. No suprapubic or flank tenderness. Extremities: 1+ edema, contractures of the upper extremities bilaterally. IMPRESSION: 1. Gram-negative bacteremia/sepsis, possible urinary tract focus. 2. Renal failure. 3. Hydronephrosis. 4. Dementia. Pending cultures. Will give cefepime adjusted for renal insufficiency. Await identification of blood isolate. Urology consultation for hydronephrosis. Will follow. Thank you for the kind referral. ELIECER KUNZ M.D. MIGUEL [id number]
--- NOTE | 2016-09-11 14:04 | PN ---
[id number] is a 70 year-old male with a PMH of HTN, HLD, CAD, CHF, CVA, CAD, PPM, dementia, DM and cervical myelopathy who was admitted for anemia. Vital Signs Period Temp Pulse Resp BP Sys/Mcmahon Pulse Ox Last 24 Hr 98.2 F-98.7 F 82-92 18-20 128-151/51-87 95-100 GENERAL: The patient is awake, alert, and fully oriented, in no acute distress. HEAD: Normal with no signs of trauma. EYES: PERRL, extraocular movements intact, sclera anicteric, conjunctiva clear. No ptosis. ENT: Ears normal, nares patent, oropharynx clear without exudates, moist mucous membranes. NECK: Trachea midline, full range of motion, supple. LUNGS: Breath sounds equal, clear to auscultation bilaterally, no wheezes, no crackles, no accessory muscle use. HEART: Regular rate and rhythm, S1, S2 without murmur, rub or gallop. ABDOMEN: Soft, nontender, nondistended, normoactive bowel sounds, no guarding, no rebound, no hepatosplenomegaly, no masses. EXTREMITIES: 2+ pulses, warm, well-perfused, no edema. NEUROLOGICAL: Cranial nerves II through XII grossly intact. Normal speech, gait not observed. PSYCH: Normal mood, normal affect. SKIN: Warm, dry, normal turgor, no rashes or lesions noted Laboratory Results - last 24 hr 09/09/16 09/10/16 09/10/16 08:02 08:12 19:00 WBC RBC Hgb Hct MCV MCHC RDW Plt Count MPV Neutrophils % Lymphocytes % Monocytes % Eosinophils % Basophils % Sodium Potassium Chloride Carbon Dioxide Anion Gap BUN Creatinine Random Glucose Calcium Urine Color Urine Appearance Urine pH Ur Specific [place] Urine Protein Urine Glucose (UA) Urine Ketones Urine Blood Urine Nitrite Urine Bilirubin Urine Urobilinogen Ur Leukocyte Esterase Urine RBC Urine WBC Urine Bacteria Ur Random Sodium 100 Ur Random Potassium 17.8 Ur Random Chloride 98 Urine Creatinine IgG 258 L IgA 4288 H IgM 7 L Free [place] LC, Quant 2140.00 H Free Lambda LC, Quant 16.06 Free [place]/Lambda Ratio 133.25 H 09/10/16 09/10/16 09/11/16 19:00 19:01 07:00 WBC RBC Hgb Hct MCV MCHC RDW Plt Count MPV Neutrophils % Lymphocytes % Monocytes % Eosinophils % Basophils % Sodium 139 Potassium 3.6 Chloride 110 H Carbon Dioxide 16 L Anion Gap 13 BUN 39 H Creatinine 2.5 H Random Glucose 92 Calcium 9.6 Urine Color Yellow Urine Appearance Clear Urine pH 6.0 Ur Specific [place] 1.010 Urine Protein 2+ H Urine Glucose (UA) Negative Urine Ketones Negative Urine Blood 2+ H Urine Nitrite Negative Urine Bilirubin Negative Urine Urobilinogen 0.2 e.u/dl Ur Leukocyte Esterase 1+ H Urine RBC 10-20 Urine WBC 0-2 Urine Bacteria Few Ur Random Sodium Ur Random Potassium Ur Random Chloride Urine Creatinine 33.5 IgG IgA IgM Free [place] LC, Quant Free Lambda LC, Quant Free [place]/Lambda Ratio 09/11/16 07:00 WBC 6.9 RBC 2.63 L D Hgb 8.3 L D Hct 24.8 L D MCV 94.3 MCHC 33.4 RDW 14.4 Plt Count 163 MPV 6.1 L Neutrophils % 76.0 Lymphocytes % 17.3 Monocytes % 5.2 Eosinophils % 1.2 Basophils % 0.3 Sodium Potassium Chloride Carbon Dioxide Anion Gap BUN Creatinine Random Glucose Calcium Urine Color Urine Appearance Urine pH Ur Specific [place] Urine Protein Urine Glucose (UA) Urine Ketones Urine Blood Urine Nitrite Urine Bilirubin Urine Urobilinogen Ur Leukocyte Esterase Urine RBC Urine WBC Urine Bacteria Ur Random Sodium Ur Random Potassium Ur Random Chloride Urine Creatinine IgG IgA IgM Free [place] LC, Quant Free Lambda LC, Quant Free [place]/Lambda Ratio Active Medications Generic Name Dose Route Start Last Admin Trade Name Freq PRN Reason Stop Dose Admin Acetaminophen 650 mg 09/07/16 12:23 Tylenol - PO Q6H PRN PAIN Artificial Tears 1 drop 09/07/16 10:00 09/11/16 10:18 Artificial Tears OU 1 drop BID [facility] Administration Carvedilol 3.125 mg 09/07/16 10:00 09/11/16 10:18 Coreg - PO 3.125 mg BID [facility] Administration Docusate Sodium 100 mg 09/07/16 22:00 09/11/16 10:18 Colace - PO 100 mg BID [facility] Administration Erythromycin 1 applic 09/07/16 22:00 09/10/16 21:48 Erythromycin 0.5% Eye Ointment OU 1 applic HS [facility] Administration Folic Acid 1 mg 09/07/16 10:00 09/11/16 10:19 Folic Acid - PO 1 mg DAILY [facility] Administration Sodium Chloride 1,000 mls @ 83 mls/hr 09/09/16 19:30 Normal Saline - IV ASDIR [facility] Cefepime HCl 0.5 gm/ Dextrose 100 mls @ 200 mls/hr 09/11/16 10:00 09/11/16 10: 19 IVPB 200 mls/hr BID [facility] Administration Mirtazapine 30 mg 09/09/16 22:00 09/10/16 21:30 Remeron - PO 30 mg HS [facility] Administration Multivitamins/Minerals 1 each 09/07/16 16:30 09/11/16 10:26 Theragran-M PO 1 each DAILY [facility] Administration Polyethylene Glycol 17 gm 09/09/16 14:45 09/11/16 10:19 Miralax (For Daily Use) - PO Not Given DAILY [facility] Microbiology 09/09/16 21:30 Urine - Urine [place] Urine Culture - Preliminary Group D Strep Or Entero Coccus 09/09/16 20:15 Blood - Peripheral Venous Blood Culture - Preliminary Lactose Fermenting Neg Bacilli 09/09/16 20:15 Blood - Peripheral Venous Blood Culture - Preliminary NO GROWTH OBTAINED AFTER 24 HOURS, INCUBATION TO CONTINUE FOR 4 DAYS. imaging Ultrasound of kidney/bladder bilateral hydronephrosis CT of abd/pelvis, bilateral pleural effusions, moderately severe bilateral hydronephrosis and hydroureter without obstruction fecal impaction ct of head, old lacunar infarct ASSESSMENT/PLAN: 1) heme: normocytic Anemia - transfused 2 units (09/07/16) hemoglobin 8.8 stable - patient evaluated by hematology for workup of multiple myeloma - daughter declined bone marrow biopsy, requesting comfort measures only 2) nephrology - ruby creatine 2.5 baseline 0.8 - continue IVF - keep winston in place-->neurogenic bladder - Appreciate urology input - nephrology consulted and following 3) card Hypertension - continue Coreg 4) psych: Dementia/depression - cont remeron - pt increasinlgy depressed, denies any suicidal ideation, appreciate psychiatry input 5) ID - one set of blood cultures prelim lactose fermenting bacilli, - f/u repeat blood cultures ordered - aggree with ID continue cefepime DVT PPX: defer heparin due to severe anemia for now, PT, SCD/JESSIE FEN Electrolytes: replete as indicated Nutrition: low sodium diet Dispo: lengthy discussion with the daughter, Aster Mcmillan ([facility]), declines bone marrow biopsy at this time. pt currently requires inpatient care. Visit type - Emergency Visit Emergency Visit: Yes ED Registration Date: 09/06/16 Care time: The patient presented to the Emergency Department on the above date and was hospitalized for further evaluation of their emergent condition. - New Patient This patient is new to me today: No - Critical Care Critical Care patient: No - Discharge Referral Referred to [facility] Med P.C.: No
[2016-09-11 19:48] LABS: C-REACTIVE PROTEIN 0.5 MG/DL (0.00-0.3)
[2016-09-11] MEDS ORDERED: REFRIGERATED ANITBIOTICS ONE (21:15)
[2016-09-11] MEDS: SODIUM CHLORIDE 1,000 ML IV SCH ×2 (21:45→21:46)
[2016-09-11] MEDS: MIRTAZAPINE 15 MG TABLET (FP) PO SCH (21:48)
[2016-09-11] MEDS: ERYTHROMYCIN 0.5% OPHTHALMIC OINTMENT 3.5 GM TUBE OU SCH (22:03)
[2016-09-12 00:06] LABS: CALCIUM 10.4 mg/dL (8.6-10.2)
[2016-09-12 07:49] LABS: BASOPHIL 0.5 % (0-2.0); EOSINOPHIL 1.2 % (0-4.5); MCH 31.2 pg (25.7-33.7); MCHC 33.4 g/dl (32.0-35.9); MEAN CELL VOLUME 93.5 fl (80-96); NEUTROPHILS 74.5 % (42.8-82.8); RDW 14.5 % (11.9-15.9); WHITE BLOOD COUNT 6.6 K/mm3 (4.0-10.0)
[2016-09-12 08:14] LABS: PLATELET COUNT 179 K/MM3 (134-434)
[2016-09-12 08:15] LABS: MEAN PLT VOLUME 6.1 fl (7.5-11.1)
[2016-09-12 08:59] LABS: CALCIUM 9.3 mg/dl (8.4-10.2)
[2016-09-12] MEDS: CEFEPIME 0.5 GM in DEXTROSE 5%-WATER - 100 ML IVPB SCH ×2 (09:00→22:13)
[2016-09-12] MEDS ORDERED: VANCOMYCIN 1,000 MG in DEXTROSE 5%-WATER - 250 ML IVPB ONE (09:03)
--- NOTE | 2016-09-12 09:03 | PN ---
Progress Note, Physician History of Present Illness: Awake, responsive C/O abdominal discomfort No fever WBC WNL Urology consult appreciated - Current Medication List Current Medications: Active Medications Acetaminophen (Tylenol -) 650 mg PO Q6H PRN PRN Reason: PAIN Artificial Tears (Artificial Tears) 1 drop OU BID [facility] Last Admin: 09/11/16 21:44 Dose: 1 drop Carvedilol (Coreg -) 3.125 mg PO BID [facility] Last Admin: 09/11/16 21:48 Dose: 3.125 mg Docusate Sodium (Colace -) 100 mg PO BID [facility] Last Admin: 09/11/16 21:44 Dose: 100 mg Erythromycin (Erythromycin 0.5% Eye Ointment) 1 applic OU HS [facility] Last Admin: 09/11/16 22:03 Dose: 1 applic Folic Acid (Folic Acid -) 1 mg PO DAILY [facility] Last Admin: 09/11/16 10:19 Dose: 1 mg Sodium Chloride (Normal Saline -) 1,000 mls @ 83 mls/hr IV ASDIR [facility] Last Admin: 09/11/16 21:46 Dose: 83 mls/hr Cefepime HCl 0.5 gm/ Dextrose 100 mls @ 200 mls/hr IVPB BID [facility] Last Admin: 09/11/16 21:48 Dose: 200 mls/hr Mirtazapine (Remeron -) 30 mg PO HS [facility] Last Admin: 09/11/16 21:48 Dose: 30 mg Multivitamins/Minerals (Theragran-M) 1 each PO DAILY [facility] Last Admin: 09/11/16 10:26 Dose: 1 each Polyethylene Glycol (Miralax (For Daily Use) -) 17 gm PO DAILY [facility] Last Admin: 09/11/16 10:19 Dose: Not Given - Objective Vital Signs: Vital Signs Temperature 97.5 F L 09/12/16 05:57 Pulse Rate 102 H 09/12/16 05:57 Respiratory Rate 19 09/12/16 05:57 Blood Pressure 150/86 09/12/16 05:57 O2 Sat by Pulse Oximetry (%) 98 09/12/16 05:57 Constitutional: Yes: No Distress Eyes: Yes: Conjunctiva Clear Cardiovascular: Yes: Regular Rate and Rhythm, S1, S2 Respiratory: Yes: CTA Bilaterally Gastrointestinal: Yes: Normal Bowel Sounds, Soft. No: Tenderness Edema: Yes Labs: CBC, BMP 09/12/16 07:34 Assessment/Plan Gram Negative bacteremia/sepsis, likely source Hydronephrosis Renal failure Await final identification of blood isolate Continue cefepime, adjusted for renal failure
[2016-09-12 09:17] LABS: CREATININE 2.3 mg/dl (0.6-1.3)
[2016-09-12] MEDS ORDERED: VANCOMYCIN 1 GRAM (PRE-DOCKED) 1,000 MG/250 ML BAG IVPB ONE (09:30)
[2016-09-12] MEDS ORDERED: LACTULOSE 20 GM/30 ML UDC (FOR ORAL USE ONLY) PO ONE (09:49)
[2016-09-12] MEDS: DOCUSATE SODIUM 100 MG CAPSULE (FP) PO SCH ×2 (10:57→21:56)
[2016-09-12] MEDS: MULTIVITAMINS THER W-MINERALS COMBO TABLET (FP) PO SCH (10:57)
[2016-09-12] MEDS: CARVEDILOL 3.125 MG TABLET (FP) PO SCH ×2 (10:57→21:56)
[2016-09-12] MEDS: FOLIC ACID 1 MG TABLET (FP) PO SCH (10:57)
[2016-09-12] MEDS: ARTIFICIAL TEARS (POLYVINYL ALCOHOL 1.4%) OPTH DROPS OU SCH ×2 (10:57→21:56)
[2016-09-12] MEDS: POLYETHYLENE GLYCOL 3350 119 GM BTL PO SCH (10:58)
--- NOTE | 2016-09-12 11:19 | CON.PSY ---
Psychiatry Consult Chief Complaint: I am fdepressed and weak. Symptoms: reports: Depressed Mood, Anhedonia, Decreased Energy - Previous Psychiatric Treatment Outpatient: None Inpatient: None - Previous Substance Abuse Treatment Outpatient: None Inpatient: None - Current Medications Current Medications: Active Medications Acetaminophen (Tylenol -) 650 mg PO Q6H PRN PRN Reason: PAIN Artificial Tears (Artificial Tears) 1 drop OU BID [facility] Last Admin: 09/12/16 10:57 Dose: 1 drop Carvedilol (Coreg -) 3.125 mg PO BID [facility] Last Admin: 09/12/16 10:57 Dose: 3.125 mg Docusate Sodium (Colace -) 100 mg PO BID [facility] Last Admin: 09/12/16 10:57 Dose: 100 mg Duloxetine HCl (Cymbalta -) 20 mg PO DAILY [facility] Erythromycin (Erythromycin 0.5% Eye Ointment) 1 applic OU HS [facility] Last Admin: 09/11/16 22:03 Dose: 1 applic Folic Acid (Folic Acid -) 1 mg PO DAILY [facility] Last Admin: 09/12/16 10:57 Dose: 1 mg Sodium Chloride (Normal Saline -) 1,000 mls @ 83 mls/hr IV ASDIR [facility] Last Admin: 09/11/16 21:46 Dose: 83 mls/hr Cefepime HCl 0.5 gm/ Dextrose 100 mls @ 200 mls/hr IVPB BID [facility] Last Admin: 09/12/16 09:00 Dose: 200 mls/hr Mirtazapine (Remeron -) 30 mg PO HS [facility] Last Admin: 09/11/16 21:48 Dose: 30 mg Multivitamins/Minerals (Theragran-M) 1 each PO DAILY [facility] Last Admin: 09/12/16 10:57 Dose: 1 each Polyethylene Glycol (Miralax (For Daily Use) -) 17 gm PO DAILY [facility] Last Admin: 09/12/16 10:58 Dose: 17 gm - Allergies Allergies: Allergies Allergy/AdvReac Type Severity Reaction Status Date / Time No Known Allergies Allergy Verified 09/06/16 18:54 - Current Living Status Usual Living Arrangement: Skilled Nursing - Current Mental Status Evaluation Appearance: Well Groomed Attitude: Cooperative - Affect Affect: Constrictive Appropriateness: Appropriate to Content - Mood Mood: Depressed - Speech/Language Expressive: Coherent Receptive: Age Appropriate Comprehension of Spoken Words - Psychomotor Activity Psychomotor Activity: Slowed - Thought Process Thought Process: Intact - Thought Content Hallucinations: Absent Delusions: Absent - Self Perception Self Perception: No Impairment - Cognition Attention: Alert Orientation: Time Memory, Immediate Recall: Intact Memory, Short Term: 2/3 Memory, Remote with Promptin/3 - Concentration Serial Sevens Intact: No Simple Calculations Intact: No - Abstraction Proverb Interpretation: Intact Judgement: Intact - Insight Insight: Intact - Impulse Control Impulse Control: Good Control - Suicidal Ideation Suicidal Ideation: No - Homicidal Ideation Homicidal Ideation: No Assessment/Plan Add [id number] po od.
--- NOTE | 2016-09-12 13:08 | PN ---
Physical Exam: SUBJECTIVE: Patient seen and examined, patient reports feeling constipated. OBJECTIVE:patient is a 70 year-old male with a PMH of HTN, HLD, CAD, CHF, CVA, CAD, PPM, dementia, DM and cervical myelopathy who was admitted for anemia and acute renal failure. Vital Signs Period Temp Pulse Resp BP Sys/Mcmahon Pulse Ox Last 24 Hr 97.5 F-98.6 F 82-102 17-19 133-150/69-88 98-99 GENERAL: The patient is awake, alert, and fully oriented, in no acute distress. HEAD: Normal with no signs of trauma. EYES: PERRL, extraocular movements intact, sclera anicteric, conjunctiva clear. No ptosis. ENT: Ears normal, nares patent, oropharynx clear without exudates, moist mucous membranes. NECK: Trachea midline, full range of motion, supple. LUNGS: Breath sounds equal, clear to auscultation bilaterally, no wheezes, no crackles, no accessory muscle use. HEART: Regular rate and rhythm, S1, S2 without murmur, rub or gallop. ABDOMEN: Soft, nontender, nondistended, normoactive bowel sounds, no guarding, no rebound, no hepatosplenomegaly, no masses. EXTREMITIES: 2+ pulses, warm, well-perfused, no edema. NEUROLOGICAL: Cranial nerves II through XII grossly intact. Normal speech, gait not observed. PSYCH: Normal mood, normal affect. SKIN: Warm, dry, normal turgor, no rashes or lesions noted Laboratory Results - last 24 hr 09/08/16 09/11/16 09/12/16 06:00 07:00 07:34 WBC 6.6 RBC 2.46 L Hgb 7.7 L Hct 23.0 L MCV 93.5 MCHC 33.4 RDW 14.5 Plt Count 179 MPV 6.1 L Neutrophils % 74.5 Lymphocytes % 18.5 Monocytes % 5.3 Eosinophils % 1.2 Basophils % 0.5 Sodium Potassium Chloride Carbon Dioxide Anion Gap BUN Creatinine Random Glucose Calcium 10.4 H C-Reactive Protein 0.5 H PTH Intact 11 L PTH Intact Intraop 0 m 09/12/16 07:34 WBC RBC Hgb Hct MCV MCHC RDW Plt Count MPV Neutrophils % Lymphocytes % Monocytes % Eosinophils % Basophils % Sodium 137 Potassium 3.5 Chloride 112 H Carbon Dioxide 16 L Anion Gap 9 BUN 34 H Creatinine 2.3 H Random Glucose 91 Calcium 9.3 C-Reactive Protein PTH Intact PTH Intact Intraop 0 m Active Medications Generic Name Dose Route Start Last Admin Trade Name Antwan PRN Reason Stop Dose Admin Acetaminophen 650 mg 09/07/16 12:23 Tylenol - PO Q6H PRN PAIN Artificial Tears 1 drop 09/07/16 10:00 09/12/16 10:57 Artificial Tears OU 1 drop BID [facility] Administration Carvedilol 3.125 mg 09/07/16 10:00 09/12/16 10:57 Coreg - PO 3.125 mg BID [facility] Administration Docusate Sodium 100 mg 09/07/16 22:00 09/12/16 10:57 Colace - PO 100 mg BID [facility] Administration Duloxetine HCl 20 mg 09/13/16 10:00 Cymbalta - PO DAILY [facility] Erythromycin 1 applic 09/07/16 22:00 09/11/16 22:03 Erythromycin 0.5% Eye Ointment OU 1 applic HS [facility] Administration Folic Acid 1 mg 09/07/16 10:00 09/12/16 10:57 Folic Acid - PO 1 mg DAILY [facility] Administration Sodium Chloride 1,000 mls @ 83 mls/hr 09/09/16 19:30 09/11/16 21:46 Normal Saline - IV 83 mls/hr ASDIR [facility] Administration Cefepime HCl 0.5 gm/ Dextrose 100 mls @ 200 mls/hr 09/11/16 10:00 09/12/16 09: 00 IVPB 200 mls/hr BID [facility] Administration Mirtazapine 30 mg 09/09/16 22:00 09/11/16 21:48 Remeron - PO 30 mg HS [facility] Administration Multivitamins/Minerals 1 each 09/07/16 16:30 09/12/16 10:57 Theragran-M PO 1 each DAILY [facility] Administration Polyethylene Glycol 17 gm 09/09/16 14:45 09/12/16 10:58 Miralax (For Daily Use) - PO 17 gm DAILY [facility] Administration Microbiology 09/09/16 20:15 Blood - Peripheral Venous Blood Culture - Final Escherichia Coli 09/09/16 20:15 Blood - Peripheral Venous Blood Culture - Preliminary NO GROWTH OBTAINED AFTER 48 HOURS, INCUBATION TO CONTINUE FOR 3 DAYS. 09/10/16 16:00 Blood - Peripheral Venous Blood Culture - Preliminary NO GROWTH OBTAINED AFTER 24 HOURS, INCUBATION TO CONTINUE FOR 4 DAYS. 09/10/16 16:00 Blood - Peripheral Venous Blood Culture - Preliminary NO GROWTH OBTAINED AFTER 24 HOURS, INCUBATION TO CONTINUE FOR 4 DAYS. 09/09/16 21:30 Urine - Urine [place] Urine Culture - Preliminary Group D Strep Or Entero Coccus imaging Ultrasound of kidney/bladder bilateral hydronephrosis CT of abd/pelvis, bilateral pleural effusions, moderately severe bilateral hydronephrosis and hydroureter without obstruction fecal impaction ct of head, old lacunar infarct ct of neck: no acute pathology ASSESSMENT/PLAN: 1) heme: normocytic Anemia - transfused 2 units (09/07/16), hemoglobin 7 transfuse 3rd unit ordered, repeat cbc at 1800 - patient evaluated by hematology for workup of multiple myeloma - daughter declined bone marrow biopsy, requesting comfort measures only 2) nephrology - ruby creatine 2.3 baseline 0.8 - keep winston in place-->neurogenic bladder - urology consulted and followed - nephrology consulted and following 3) card Hypertension - continue Coreg 4) psych: Dementia/depression - cont remeron - pt increasinlgy depressed, denies any suicidal ideation, psychiatry consulted , agree with cymbalta 5) ID - one set of blood cultures + ecoli, sensitve to cefepime, repeat blood cultures negative , - ID consulted and followed DVT PPX: defer heparin due to severe anemia for now, PT, SCD/JESSIE FEN Electrolytes: replete as indicated Nutrition: low sodium diet Dispo: lengthy discussion with the daughter, Aster Mcmillan (HCP), declines bone marrow biopsy at this time. pt currently requires inpatient care. Visit type - Emergency Visit Emergency Visit: Yes ED Registration Date: 09/06/16 Care time: The patient presented to the Emergency Department on the above date and was hospitalized for further evaluation of their emergent condition. - New Patient This patient is new to me today: No - Critical Care Critical Care patient: No - Discharge Referral Referred to [facility] Med P.C.: No
[2016-09-12] MEDS ORDERED: SODIUM PHOSPHATE/NA BIPHOS 133 ML ENEMA PR ONE (15:15)
--- NOTE | 2016-09-12 18:26 | PN ---
Progress Note, Physician History of Present Illness: Pt seen and examined at bedside. He is awake and appears comfortable. He is out of bed and in a chair. - Current Medication List Current Medications: Active Medications Acetaminophen (Tylenol -) 650 mg PO Q6H PRN PRN Reason: PAIN Artificial Tears (Artificial Tears) 1 drop OU BID [facility] Last Admin: 09/12/16 10:57 Dose: 1 drop Carvedilol (Coreg -) 3.125 mg PO BID [facility] Last Admin: 09/12/16 10:57 Dose: 3.125 mg Docusate Sodium (Colace -) 100 mg PO BID [facility] Last Admin: 09/12/16 10:57 Dose: 100 mg Duloxetine HCl (Cymbalta -) 20 mg PO DAILY [facility] Erythromycin (Erythromycin 0.5% Eye Ointment) 1 applic OU HS [facility] Last Admin: 09/11/16 22:03 Dose: 1 applic Folic Acid (Folic Acid -) 1 mg PO DAILY [facility] Last Admin: 09/12/16 10:57 Dose: 1 mg Sodium Chloride (Normal Saline -) 1,000 mls @ 83 mls/hr IV ASDIR [facility] Last Admin: 09/11/16 21:46 Dose: 83 mls/hr Cefepime HCl 0.5 gm/ Dextrose 100 mls @ 200 mls/hr IVPB BID [facility] Last Admin: 09/12/16 09:00 Dose: 200 mls/hr Mirtazapine (Remeron -) 30 mg PO HS [facility] Last Admin: 09/11/16 21:48 Dose: 30 mg Multivitamins/Minerals (Theragran-M) 1 each PO DAILY [facility] Last Admin: 09/12/16 10:57 Dose: 1 each Polyethylene Glycol (Miralax (For Daily Use) -) 17 gm PO DAILY [facility] Last Admin: 09/12/16 10:58 Dose: 17 gm - Objective Vital Signs: Vital Signs Temperature 97.5 F L 09/12/16 05:57 Pulse Rate 102 H 09/12/16 05:57 Respiratory Rate 19 09/12/16 05:57 Blood Pressure 150/86 09/12/16 05:57 O2 Sat by Pulse Oximetry (%) 98 09/12/16 05:57 Constitutional: Yes: Calm Eyes: Yes: Conjunctiva Clear HENT: Yes: Atraumatic Neck: Yes: Supple Cardiovascular: Yes: S1, S2 Respiratory: Yes: CTA Bilaterally Gastrointestinal: Yes: Soft Genitourinary: Yes: Winston Present Musculoskeletal: Yes: Muscle Weakness Edema: No Neurological: Yes: Pre-Existing Deficit Labs: CBC, BMP 09/12/16 07:34 09/12/16 07:34 Assessment/Plan Current Medications Generic Name Dose Route Start Last Admin Trade Name Freq PRN Reason Stop Dose Admin Acetaminophen 650 mg 09/07/16 12:23 Tylenol - PO Q6H PRN PAIN Artificial Tears 1 drop 09/07/16 10:00 09/12/16 10:57 Artificial Tears OU 1 drop BID [facility] Administration Carvedilol 3.125 mg 09/07/16 10:00 09/12/16 10:57 Coreg - PO 3.125 mg BID [facility] Administration Docusate Sodium 100 mg 09/07/16 22:00 09/12/16 10:57 Colace - PO 100 mg BID [facility] Administration Duloxetine HCl 20 mg 09/13/16 10:00 Cymbalta - PO DAILY [facility] Erythromycin 1 applic 09/07/16 22:00 09/11/16 22:03 Erythromycin 0.5% Eye Ointment OU 1 applic HS [facility] Administration Folic Acid 1 mg 09/07/16 10:00 09/12/16 10:57 Folic Acid - PO 1 mg DAILY [facility] Administration Sodium Chloride 1,000 mls @ 83 mls/hr 09/09/16 19:30 09/11/16 21:46 Normal Saline - IV 83 mls/hr ASDIR [facility] Administration Cefepime HCl 0.5 gm/ Dextrose 100 mls @ 200 mls/hr 09/11/16 10:00 09/12/16 09: 00 IVPB 200 mls/hr BID [facility] Administration Mirtazapine 30 mg 09/09/16 22:00 09/11/16 21:48 Remeron - PO 30 mg HS [facility] Administration Multivitamins/Minerals 1 each 09/07/16 16:30 09/12/16 10:57 Theragran-M PO 1 each DAILY [facility] Administration Polyethylene Glycol 17 gm 09/09/16 14:45 09/12/16 10:58 Miralax (For Daily Use) - PO 17 gm DAILY [facility] Administration Laboratory Tests 09/08/16 09/11/16 06:00 Unknown PTH Intact 11 L [facility]EN Screen Pending Impression 1. PANCHO 2. hypercalcemia 3. HTN 4. hx CVA 5. CAD 6. CHF 7. Chol 8. DM 9. anemia Plan - renal function is improving - hold fluids while he is getting the blood transfusion - family do not want myeloma workup - will start PO bicarb - repeat labs in am - discussed plans with nurse - monitor for signs of fluid overload - calcium is improved - keep winston in place and monitor ouput - will continue with fluids - monitor calcium levels Dr Silva
[2016-09-12] MEDS: SODIUM CHLORIDE 1,000 ML IV SCH (19:10)
[2016-09-12] MEDS ORDERED: PT OWN MED DRAWER 7, Y5N ONE (21:33)
[2016-09-12] MEDS: SODIUM BICARBONATE 650 MG TABLET PO SCH (21:56)
[2016-09-12] MEDS: MIRTAZAPINE 15 MG TABLET (FP) PO SCH (21:56)
[2016-09-12] MEDS: ERYTHROMYCIN 0.5% OPHTHALMIC OINTMENT 3.5 GM TUBE OU SCH (21:57)
[2016-09-13 08:26] LABS: BASOPHIL 0.8 % (0-2.0); EOSINOPHIL 1.6 % (0-4.5); MCH 31.1 pg (25.7-33.7); MCHC 33.7 g/dl (32.0-35.9); MEAN CELL VOLUME 92.3 fl (80-96); MEAN PLT VOLUME 5.9 fl (7.5-11.1); NEUTROPHILS 70.8 % (42.8-82.8); PLATELET COUNT 149 K/MM3 (134-434); RDW 15.3 % (11.9-15.9); WHITE BLOOD COUNT 5.9 K/mm3 (4.0-10.0)
[2016-09-13 08:36] LABS: CALCIUM 9.2 mg/dl (8.4-10.2); CREATININE 2.1 mg/dl (0.6-1.3); MAGNESIUM 1.8 mg/dL (1.8-2.4)
[2016-09-13] MEDS ORDERED: PT OWN MED DRAWER 7, Y5N ONE ×2 (09:53→21:42)
[2016-09-13] MEDS: DOCUSATE SODIUM 100 MG CAPSULE (FP) PO SCH ×2 (10:13→21:38)
[2016-09-13] MEDS: DULoxetine HCL 20 MG CAPSULE.DR (FP) PO SCH (10:13)
[2016-09-13] MEDS: FOLIC ACID 1 MG TABLET (FP) PO SCH (10:13)
[2016-09-13] MEDS: CARVEDILOL 3.125 MG TABLET (FP) PO SCH ×2 (10:13→21:39)
[2016-09-13] MEDS: POLYETHYLENE GLYCOL 3350 119 GM BTL PO SCH (10:14)
[2016-09-13] MEDS: SODIUM BICARBONATE 650 MG TABLET PO SCH ×2 (10:15→21:38)
--- NOTE | 2016-09-13 10:15 | PN ---
Progress Note, Physician History of Present Illness: Pt seen and examined at bedside. No new events. He is tolerating fluid. - Current Medication List Current Medications: Active Medications Acetaminophen (Tylenol -) 650 mg PO Q6H PRN PRN Reason: PAIN Artificial Tears (Artificial Tears) 1 drop OU BID [facility] Last Admin: 09/12/16 21:56 Dose: 1 drop Carvedilol (Coreg -) 3.125 mg PO BID [facility] Last Admin: 09/12/16 21:56 Dose: 3.125 mg Docusate Sodium (Colace -) 100 mg PO BID [facility] Last Admin: 09/12/16 21:56 Dose: 100 mg Duloxetine HCl (Cymbalta -) 20 mg PO DAILY [facility] Erythromycin (Erythromycin 0.5% Eye Ointment) 1 applic OU HS [facility] Last Admin: 09/12/16 21:57 Dose: 1 applic Folic Acid (Folic Acid -) 1 mg PO DAILY [facility] Last Admin: 09/12/16 10:57 Dose: 1 mg Sodium Chloride (Normal Saline -) 1,000 mls @ 83 mls/hr IV ASDIR [facility] Last Admin: 09/12/16 19:10 Dose: 83 mls/hr Cefepime HCl 0.5 gm/ Dextrose 100 mls @ 200 mls/hr IVPB BID [facility] Last Admin: 09/12/16 22:13 Dose: 200 mls/hr Mirtazapine (Remeron -) 30 mg PO HS [facility] Last Admin: 09/12/16 21:56 Dose: 30 mg Multivitamins/Minerals (Theragran-M) 1 each PO DAILY [facility] Last Admin: 09/12/16 10:57 Dose: 1 each Polyethylene Glycol (Miralax (For Daily Use) -) 17 gm PO DAILY [facility] Last Admin: 09/12/16 10:58 Dose: 17 gm Sodium Bicarbonate (Sodium Bicarbonate -) 650 mg PO BID [facility] Last Admin: 09/12/16 21:56 Dose: 650 mg - Objective Vital Signs: Vital Signs Temperature 97.7 F 09/13/16 06:10 Pulse Rate 89 09/13/16 06:10 Respiratory Rate 19 09/13/16 08:18 Blood Pressure 145/85 09/13/16 06:10 O2 Sat by Pulse Oximetry (%) 99 09/13/16 08:18 Constitutional: Yes: Calm Eyes: Yes: Conjunctiva Clear Cardiovascular: Yes: S1, S2 Respiratory: Yes: CTA Bilaterally Gastrointestinal: Yes: Soft Genitourinary: Yes: Winston Present Musculoskeletal: Yes: Muscle Weakness Edema: No Neurological: Yes: Pre-Existing Deficit Labs: CBC, BMP 09/13/16 08:00 09/13/16 08:00 Assessment/Plan Current Medications Generic Name Dose Route Start Last Admin Trade Name Freq PRN Reason Stop Dose Admin Acetaminophen 650 mg 09/07/16 12:23 Tylenol - PO Q6H PRN PAIN Artificial Tears 1 drop 09/07/16 10:00 09/12/16 21:56 Artificial Tears OU 1 drop BID [facility] Administration Carvedilol 3.125 mg 09/07/16 10:00 09/12/16 21:56 Coreg - PO 3.125 mg BID [facility] Administration Docusate Sodium 100 mg 09/07/16 22:00 09/12/16 21:56 Colace - PO 100 mg BID [facility] Administration Duloxetine HCl 20 mg 09/13/16 10:00 Cymbalta - PO DAILY [facility] Erythromycin 1 applic 09/07/16 22:00 09/12/16 21:57 Erythromycin 0.5% Eye Ointment OU 1 applic HS [facility] Administration Folic Acid 1 mg 09/07/16 10:00 09/12/16 10:57 Folic Acid - PO 1 mg DAILY [facility] Administration Sodium Chloride 1,000 mls @ 83 mls/hr 09/09/16 19:30 09/12/16 19:10 Normal Saline - IV 83 mls/hr ASDIR [facility] Administration Cefepime HCl 0.5 gm/ Dextrose 100 mls @ 200 mls/hr 09/11/16 10:00 09/12/16 22: 13 IVPB 200 mls/hr BID [facility] Administration Mirtazapine 30 mg 09/09/16 22:00 09/12/16 21:56 Remeron - PO 30 mg HS [facility] Administration Multivitamins/Minerals 1 each 09/07/16 16:30 09/12/16 10:57 Theragran-M PO 1 each DAILY [facility] Administration Polyethylene Glycol 17 gm 09/09/16 14:45 09/12/16 10:58 Miralax (For Daily Use) - PO 17 gm DAILY [facility] Administration Sodium Bicarbonate 650 mg 09/12/16 22:00 09/12/16 21:56 Sodium Bicarbonate - PO 650 mg BID [facility] Administration Laboratory Tests 09/09/16 09/11/16 08:02 Unknown [facility] Screen Pending Free [place] [facility], Quant 2140.00 H Impression 1. PANCHO 2. hypercalcemia 3. HTN 4. hx CVA 5. CAD 6. CHF 7. Chol 8. DM 9. anemia 10. possible myeloma 11. UTI Plan - renal function continues to improve - calcium is improving - family do not want to do a bone marrow - monitor renal function - keep winston catheter - abx for UTI - will continue with fluids - discussed with hospitalist - will follow PRN Dr Silva
[2016-09-13] MEDS: MULTIVITAMINS THER W-MINERALS COMBO TABLET (FP) PO SCH (10:16)
[2016-09-13] MEDS: CEFEPIME 0.5 GM in DEXTROSE 5%-WATER - 100 ML IVPB SCH (10:16)
[2016-09-13] MEDS: ARTIFICIAL TEARS (POLYVINYL ALCOHOL 1.4%) OPTH DROPS OU SCH ×2 (10:17→22:09)
--- NOTE | 2016-09-13 10:17 | PN ---
Progress Note, Physician History of Present Illness: Awake, mildly confused No complaints offered Afebrile - Current Medication List Current Medications: Active Medications Acetaminophen (Tylenol -) 650 mg PO Q6H PRN PRN Reason: PAIN Artificial Tears (Artificial Tears) 1 drop OU BID [facility] Last Admin: 09/12/16 21:56 Dose: 1 drop Carvedilol (Coreg -) 3.125 mg PO BID [facility] Last Admin: 09/12/16 21:56 Dose: 3.125 mg Docusate Sodium (Colace -) 100 mg PO BID [facility] Last Admin: 09/12/16 21:56 Dose: 100 mg Duloxetine HCl (Cymbalta -) 20 mg PO DAILY [facility] Erythromycin (Erythromycin 0.5% Eye Ointment) 1 applic OU HS [facility] Last Admin: 09/12/16 21:57 Dose: 1 applic Folic Acid (Folic Acid -) 1 mg PO DAILY [facility] Last Admin: 09/12/16 10:57 Dose: 1 mg Cefepime HCl 0.5 gm/ Dextrose 100 mls @ 200 mls/hr IVPB BID [facility] Last Admin: 09/12/16 22:13 Dose: 200 mls/hr Sodium Chloride (Normal Saline -) 1,000 mls @ 43 mls/hr IV ASDIR [facility] Mirtazapine (Remeron -) 30 mg PO HS [facility] Last Admin: 09/12/16 21:56 Dose: 30 mg Multivitamins/Minerals (Theragran-M) 1 each PO DAILY [facility] Last Admin: 09/12/16 10:57 Dose: 1 each Polyethylene Glycol (Miralax (For Daily Use) -) 17 gm PO DAILY [facility] Last Admin: 09/12/16 10:58 Dose: 17 gm Sodium Bicarbonate (Sodium Bicarbonate -) 650 mg PO BID [facility] Last Admin: 09/12/16 21:56 Dose: 650 mg - Objective Vital Signs: Vital Signs Temperature 97.7 F 09/13/16 06:10 Pulse Rate 89 09/13/16 06:10 Respiratory Rate 19 09/13/16 08:18 Blood Pressure 145/85 09/13/16 06:10 O2 Sat by Pulse Oximetry (%) 99 09/13/16 08:18 Constitutional: Yes: No Distress Eyes: Yes: Conjunctiva Clear Cardiovascular: Yes: Regular Rate and Rhythm, S1, S2 Respiratory: Yes: CTA Bilaterally Gastrointestinal: Yes: Normal Bowel Sounds, Soft. No: Tenderness Extremities: Yes: Other (+ contractures) Edema: No Labs: CBC, BMP 09/13/16 08:00 09/13/16 08:00 Assessment/Plan Gram Negative bacteremia/sepsis, likely source- E coli Hydronephrosis Renal failure- improving Substitute Unasyn 1.5 gm IVPB q6h Needs additional 48-72 h IV antibiotic therapy
--- NOTE | 2016-09-13 12:01 | PN ---
[id number] is a 70 year-old male with a PMH of HTN, HLD, CAD, CHF, CVA , CAD, PPM, dementia, DM and cervical myelopathy who was admitted for anemia and acute renal failure. Vital Signs Period Temp Pulse Resp BP Sys/Mcmahon Pulse Ox Last 24 Hr 97.7 F-98.6 F 81-92 18-19 132-145/67-85 98-100 GENERAL: The patient is awake, alert, and fully oriented, in no acute distress. HEAD: Normal with no signs of trauma. EYES: PERRL, extraocular movements intact, sclera anicteric, conjunctiva clear. No ptosis. ENT: Ears normal, nares patent, oropharynx clear without exudates, moist mucous membranes. NECK: Trachea midline, full range of motion, supple. LUNGS: Breath sounds equal, clear to auscultation bilaterally, no wheezes, no crackles, no accessory muscle use. HEART: Regular rate and rhythm, S1, S2 without murmur, rub or gallop. ABDOMEN: Soft, nontender, nondistended, normoactive bowel sounds, no guarding, no rebound, no hepatosplenomegaly, no masses. EXTREMITIES: 2+ pulses, warm, well-perfused, no edema. contracted billateral uppper extremities NEUROLOGICAL: Cranial nerves II through XII grossly intact. Normal speech, gait not observed. PSYCH: Normal mood, normal affect. SKIN: Warm, dry, normal turgor, no rashes or lesions noted Laboratory Results - last 24 hr 09/12/16 09/12/16 09/13/16 13:17 Unknown 08:00 WBC 5.9 RBC 2.78 L Hgb 8.6 L D Hct 25.7 L MCV 92.3 MCHC 33.7 RDW 15.3 Plt Count 149 MPV 5.9 L Neutrophils % 70.8 Lymphocytes % 20.5 Monocytes % 6.3 Eosinophils % 1.6 Basophils % 0.8 Sodium Potassium Chloride Carbon Dioxide Anion Gap BUN Creatinine Random Glucose Calcium Magnesium 1.9 Blood Type O POSITIVE Antibody Screen Negative Crossmatch See Detail 09/13/16 08:00 WBC RBC Hgb Hct MCV MCHC RDW Plt Count MPV Neutrophils % Lymphocytes % Monocytes % Eosinophils % Basophils % Sodium 139 Potassium 3.5 Chloride 110 H Carbon Dioxide 15 L Anion Gap 14 BUN 30 H Creatinine 2.1 H Random Glucose 79 Calcium 9.2 Magnesium 1.8 Blood Type Antibody Screen Crossmatch Active Medications Generic Name Dose Route Start Last Admin Trade Name Freq PRN Reason Stop Dose Admin Acetaminophen 650 mg 09/07/16 12:23 09/13/16 10:16 Tylenol - PO 650 mg Q6H PRN Administration PAIN Artificial Tears 1 drop 09/07/16 10:00 09/13/16 10:17 Artificial Tears OU 1 drop BID [facility] Administration Carvedilol 3.125 mg 09/07/16 10:00 09/13/16 10:13 Coreg - PO 3.125 mg BID [facility] Administration Docusate Sodium 100 mg 09/07/16 22:00 09/13/16 10:13 Colace - PO 100 mg BID [facility] Administration Duloxetine HCl 20 mg 09/13/16 10:00 09/13/16 10:13 Cymbalta - PO 20 mg DAILY [facility] Administration Erythromycin 1 applic 09/07/16 22:00 09/12/16 21:57 Erythromycin 0.5% Eye Ointment OU 1 applic HS [facility] Administration Folic Acid 1 mg 09/07/16 10:00 09/13/16 10:13 Folic Acid - PO 1 mg DAILY [facility] Administration Sodium Chloride 1,000 mls @ 43 mls/hr 09/13/16 10:13 Normal Saline - IV ASDIR [facility] Ampicillin Sodium/Sulbactam Sodium 100 mls @ 200 mls/hr 09/13/16 10:45 Unasyn 1.5 Gm (Pre-Docked) IVPB Q6H-IV [facility] Mirtazapine 30 mg 09/09/16 22:00 09/12/16 21:56 Remeron - PO 30 mg HS [facility] Administration Multivitamins/Minerals 1 each 09/07/16 16:30 09/13/16 10:16 Theragran-M PO 1 each DAILY [facility] Administration Polyethylene Glycol 17 gm 09/09/16 14:45 09/13/16 10:14 Miralax (For Daily Use) - PO 17 gm DAILY [facility] Administration Sodium Bicarbonate 650 mg 09/12/16 22:00 09/13/16 10:15 Sodium Bicarbonate - PO 650 mg BID [facility] Administration Microbiology 09/09/16 20:15 Blood - Peripheral Venous Blood Culture - Preliminary NO GROWTH OBTAINED AFTER 72 HOURS, INCUBATION TO CONTINUE FOR 2 DAYS. 09/10/16 16:00 Blood - Peripheral Venous Blood Culture - Preliminary NO GROWTH OBTAINED AFTER 48 HOURS, INCUBATION TO CONTINUE FOR 3 DAYS. 09/10/16 16:00 Blood - Peripheral Venous Blood Culture - Preliminary NO GROWTH OBTAINED AFTER 48 HOURS, INCUBATION TO CONTINUE FOR 3 DAYS. 09/09/16 21:30 Urine - Urine Winston Urine Culture - Final Enterococcus Faecalis 09/09/16 20:15 Blood - Peripheral Venous Blood Culture - Final Escherichia Coli ASSESSMENT/PLAN: imaging Ultrasound of kidney/bladder bilateral hydronephrosis CT of abd/pelvis, bilateral pleural effusions, moderately severe bilateral hydronephrosis and hydroureter without obstruction fecal impaction ct of head, old lacunar infarct ct of neck: no acute pathology ASSESSMENT/PLAN: 1) heme: normocytic Anemia - transfused 3 units (09/07/16 and 09/13/16), hemoglobin 8.2 - patient evaluated by hematology for workup of multiple myeloma - daughter declined bone marrow biopsy, requesting comfort measures only 2) nephrology - ruby creatine 2.3 baseline 0.8 - keep winston in place-->neurogenic bladder - urology consulted and followed - nephrology consulted and following 3) card Hypertension - continue Coreg -b/p at goal 4) psych: Dementia/depression - cont remeron - continue cymbalta as per recommendation of psychiatry 5) ID - one set of blood cultures + ecoli, will require Unasyn for 72 hours as per infectious disease - urine culture positive enterococcus feaecilis, - ID consulted and followed DVT PPX: defer heparin due to severe anemia for now, PT, SCD/JESSIE FEN Electrolytes: replete as indicated Nutrition: low sodium diet Dispo: lengthy discussion with the daughter, Aster Mcmillan (HCP), declines bone marrow biopsy at this time. pt currently requires inpatient care. Visit type - Emergency Visit Emergency Visit: Yes ED Registration Date: 09/06/16 Care time: The patient presented to the Emergency Department on the above date and was hospitalized for further evaluation of their emergent condition. - New Patient This patient is new to me today: No - Critical Care Critical Care patient: No - Discharge Referral Referred to [facility] No
[2016-09-13] MEDS: AMPICILLIN NA/SULBACTAM NA 100 ML IVPB SCH ×2 (15:00→20:21)
--- NOTE | 2016-09-13 20:28 | PN ---
Progress Note (short form) - Note Progress Note: PAtient seen and examined Confused, baseline Very short attentionspan Cant recall 3 words givento [id number] deniesany symptoms Last Vital Signs Temp Pulse Resp BP Pulse Ox 99.0 F 71 18 141/78 99 09/13/16 14:31 09/13/16 14:31 09/13/16 20:05 09/13/16 14:31 09/13/16 20:05 HEENT: AARON, EOM Intact Cor: RSR, No murmurs, No gallops Lungs: Clear to P&A Abd: Soft, Normal bowel sounds, No organomegaly Ext:contractures Abnormal Lab Results 09/13/16 09/13/16 08:00 08:00 RBC 2.78 L Hgb 8.6 L D Hct 25.7 L MPV 5.9 L Chloride 110 H Carbon Dioxide 15 L BUN 30 H Creatinine 2.1 H Current Medications Acetaminophen (Tylenol -) 650 mg PO Q6H PRN PRN Reason: PAIN Last Admin: 09/13/16 10:16 Dose: 650 mg Artificial Tears (Artificial Tears) 1 drop OU BID [facility] Last Admin: 09/13/16 10:17 Dose: 1 drop Carvedilol (Coreg -) 3.125 mg PO BID [facility] Last Admin: 09/13/16 10:13 Dose: 3.125 mg Docusate Sodium (Colace -) 100 mg PO BID [facility] Last Admin: 09/13/16 10:13 Dose: 100 mg Duloxetine HCl (Cymbalta -) 20 mg PO DAILY [facility] Last Admin: 09/13/16 10:13 Dose: 20 mg Erythromycin (Erythromycin 0.5% Eye Ointment) 1 applic OU HS [facility] Last Admin: 09/12/16 21:57 Dose: 1 applic Folic Acid (Folic Acid -) 1 mg PO DAILY [facility] Last Admin: 09/13/16 10:13 Dose: 1 mg Sodium Chloride (Normal Saline -) 1,000 mls @ 43 mls/hr IV ASDIR [facility] Ampicillin Sodium/Sulbactam Sodium (Unasyn 1.5 Gm (Pre-Docked)) 100 mls @ 200 mls/hr IVPB Q6H-IV [facility] Last Admin: 09/13/16 20:21 Dose: 200 mls/hr Mirtazapine (Remeron -) 30 mg PO HS [facility] Last Admin: 09/12/16 21:56 Dose: 30 mg Multivitamins/Minerals (Theragran-M) 1 each PO DAILY [facility] Last Admin: 09/13/16 10:16 Dose: 1 each Polyethylene Glycol (Miralax (For Daily Use) -) 17 gm PO DAILY [facility] Last Admin: 09/13/16 10:14 Dose: 17 gm Sodium Bicarbonate (Sodium Bicarbonate -) 650 mg PO BID [facility] Last Admin: 09/13/16 10:15 Dose: 650 mg A/P 70 yo gentleman ,[facility] resident, dependent on ADLs, with contracture of upper extremities.He has been wheel chair bound.He comes in with renal insufficiency , anemia and hypercalcemia. He has a significant past medical history of memory impairment/??dementia, Cervical Myelopathy, CAD, CHF s/p pacemaker, HTN, HLD and diabetes. Patient is uncooperative and has significant memory impairment. Follows simple commands.Denies any specific complaints Clinicalpicture and protein studies c/w myeloma given elevated globulin level, anemia, hypercalcemia, renal failure. 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 PAtients daughter does not want topursue bonemarrow biopsy She wants to pursue conservative measures given his overall functional status and comorbidities she is hesitant about steroids aswell ? melphalan/prednisone once UTI treated adequately renal insufficiency and hypercalcemia improved with hydration on antibiotics for bacteremia will rediscuss with daughter further goals of care -- ?palliative care
[2016-09-13] MEDS: MIRTAZAPINE 15 MG TABLET (FP) PO SCH (21:39)
[2016-09-13] MEDS: ERYTHROMYCIN 0.5% OPHTHALMIC OINTMENT 3.5 GM TUBE OU SCH (22:09)
[2016-09-14] MEDS: AMPICILLIN NA/SULBACTAM NA 100 ML IVPB SCH ×4 (02:29→21:43)
[2016-09-14 08:37] LABS: CALCIUM 9.2 mg/dl (8.4-10.2); URIC ACID 7.5 mg/dl (2.6-7.2)
[2016-09-14 08:46] LABS: BASOPHIL 0.7 % (0-2.0); EOSINOPHIL 1.4 % (0-4.5); MCH 30.4 pg (25.7-33.7); MCHC 33.9 g/dl (32.0-35.9); MEAN CELL VOLUME 89.9 fl (80-96); PLATELET COUNT 160 K/MM3 (134-434); RDW 15.5 % (11.9-15.9); WHITE BLOOD COUNT 5.4 K/mm3 (4.0-10.0)
--- NOTE | 2016-09-14 09:03 | PN ---
Physical Exam: SUBJECTIVE: Patient seen and examined. Calm. Answers simple questions appropriately. OBJECTIVE: Vital Signs Period Temp Pulse Resp BP Sys/Mcmahon Pulse Ox Last 24 Hr 98.9 F-99.0 F 71-78 18-20 139-150/78-87 97-99 GENERAL: The patient is awake. A&O x 1. HEAD: Normal with no signs of trauma. EYES: PERRL, extraocular movements intact, sclera anicteric, conjunctiva clear. No ptosis. LUNGS: CTA HEART: Regular rate and rhythm, S1, S2 without murmur, rub or gallop. ABDOMEN: Soft, nontender, nondistended, normoactive bowel sounds, no guarding, no rebound EXTREMITIES: 2+ pulses, warm, well-perfused, no edema. NEUROLOGICAL: Cranial nerves II through XII grossly intact. Speech is clear, nonsensical. Laboratory Results - last 24 hr 09/14/16 09/14/16 07:54 07:54 WBC 5.4 RBC 2.89 L Hgb 8.8 L Hct 26.0 L MCV 89.9 MCHC 33.9 RDW 15.5 Plt Count 160 MPV 6.0 L Neutrophils % 71.0 Lymphocytes % 20.9 Monocytes % 6.0 Eosinophils % 1.4 Basophils % 0.7 Sodium 139 Potassium 3.4 L Chloride 111 H Carbon Dioxide 16 L Anion Gap 12 BUN 30 H Creatinine 2.0 H Random Glucose 80 Uric Acid 7.5 H Calcium 9.2 LD Total 81 L Current Medications Generic Name Dose Route Start Last Admin Trade Name Freq PRN Reason Stop Dose Admin Acetaminophen 650 mg 09/07/16 12:23 09/13/16 10:16 Tylenol - PO 650 mg Q6H PRN Administration PAIN Artificial Tears 1 drop 09/07/16 10:00 09/13/16 22:09 Artificial Tears OU 1 drop BID LINDA Administration Carvedilol 3.125 mg 09/07/16 10:00 09/13/16 21:39 Coreg - PO 3.125 mg BID LINDA Administration Docusate Sodium 100 mg 09/07/16 22:00 09/13/16 21:38 Colace - PO 100 mg BID LINDA Administration Duloxetine HCl 20 mg 09/13/16 10:00 09/13/16 10:13 Cymbalta - PO 20 mg DAILY LINDA Administration Erythromycin 1 applic 09/07/16 22:00 09/13/16 22:09 Erythromycin 0.5% Eye Ointment OU 1 applic HS LINDA Administration Folic Acid 1 mg 09/07/16 10:00 09/13/16 10:13 Folic Acid - PO 1 mg DAILY LINDA Administration Sodium Chloride 1,000 mls @ 43 mls/hr 09/13/16 10:13 Normal Saline - IV ASDIR LINDA Ampicillin Sodium/Sulbactam Sodium 100 mls @ 200 mls/hr 09/13/16 10:45 02:29 Unasyn 1.5 Gm (Pre-Docked) IVPB 200 mls/hr Q6H-IV LINDA Administration Mirtazapine 30 mg 09/09/16 22:00 09/13/16 21:39 Remeron - PO 30 mg HS LINDA Administration Multivitamins/Minerals 1 each 09/07/16 16:30 09/13/16 10:16 Theragran-M PO 1 each DAILY LINDA Administration Polyethylene Glycol 17 gm 09/09/16 14:45 09/13/16 10:14 Miralax (For Daily Use) - PO 17 gm DAILY LINDA Administration Potassium Chloride 40 meq 09/14/16 09:15 K-Dur - PO 09/14/16 15:16 Q6H LINDA Sodium Bicarbonate 650 mg 09/12/16 22:00 09/13/16 21:38 Sodium Bicarbonate - PO 650 mg BID LINDA Administration ASSESSMENT/PLAN: 70 year-old male with a PMH of HTN, HLD, CAD, CHF, CAD, PPM, dementia, DM and cervical myelopathy who was admitted for anemia. Anemia secondary to multiple myeloma --seen and evaluated by heme/onc, clinical picture is consistent with multiple myeloma --was transfused 2 units on 09/07 and 1 unit on 09/12, h/h presently stable --family does not want further workup or invasive interventions Acute kidney injury, improved Bilateral hydronephrosis, acute on chronic Neurogenic bladder, chronic --09/09 CTAP: moderate to severe b/l hydro with marked dilitation of tortuous ureters; per urology, this is c/w chronic neurogenic bladder--->thickened bladder bundy -->high pressure bladder-->reflux to kidneys bilaterally --hydro and renal function have improved with winston drainage; Cr 3.7 on admission, now 2.0 (baseline 0.8) E.coli bacteremia --afebrile, no leukocytosis --Antibiotics to date: Vanco x 1 (09/12); cefepime (09/10-->09/13); Unasyn (09/13 --> ) Enterococcus UTI --antibiotics as above Hypercalcemia, improved --corrected calcium 10.8 --continue very gentle IV fluids Hypertension --continue carvedilol Hyperlipidemia --on no meds CAD s/p PPM --continue carvedilol Chronic systolic and diastolic heart failure --last echo 2012 --new echo ordered Dementia/depression - cont remeron, Cymbalta DVT PPX: defer heparin due to anemia; SCDs FEN Fluids: NS @43cc/hr Electrolytes: replete as indicated; replete K cautiously Nutrition: low sodium diet Dispo: pt currently requires inpatient care. Visit type - Emergency Visit Emergency Visit: Yes ED Registration Date: 09/06/16 Care time: The patient presented to the Emergency Department on the above date and was hospitalized for further evaluation of their emergent condition. - New Patient This patient is new to me today: No - Critical Care Critical Care patient: No
[2016-09-14] MEDS: POTASSIUM CHLORIDE TABS 20 MEQ TABLET.ER (FP) PO SCH ×2 (09:15→15:14)
--- NOTE | 2016-09-14 09:44 | PN ---
Progress Note, Physician History of Present Illness: Renal f/u Patient in no distress lying in bed Eating poorly but IVF in progress Azotemia trending down K low so being replaced - Current Medication List Current Medications: Active Medications Acetaminophen (Tylenol -) 650 mg PO Q6H PRN PRN Reason: PAIN Last Admin: 09/13/16 10:16 Dose: 650 mg Artificial Tears (Artificial Tears) 1 drop OU BID [facility] Last Admin: 09/13/16 22:09 Dose: 1 drop Carvedilol (Coreg -) 3.125 mg PO BID [facility] Last Admin: 09/13/16 21:39 Dose: 3.125 mg Docusate Sodium (Colace -) 100 mg PO BID [facility] Last Admin: 09/13/16 21:38 Dose: 100 mg Duloxetine HCl (Cymbalta -) 20 mg PO DAILY [facility] Last Admin: 09/13/16 10:13 Dose: 20 mg Erythromycin (Erythromycin 0.5% Eye Ointment) 1 applic OU HS [facility] Last Admin: 09/13/16 22:09 Dose: 1 applic Folic Acid (Folic Acid -) 1 mg PO DAILY [facility] Last Admin: 09/13/16 10:13 Dose: 1 mg Sodium Chloride (Normal Saline -) 1,000 mls @ 43 mls/hr IV ASDIR LINDA Ampicillin Sodium/Sulbactam Sodium (Unasyn 1.5 Gm (Pre-Docked)) 100 mls @ 200 mls/hr IVPB Q6H-IV [facility] Last Admin: 09/14/16 02:29 Dose: 200 mls/hr Mirtazapine (Remeron -) 30 mg PO HS [facility] Last Admin: 09/13/16 21:39 Dose: 30 mg Multivitamins/Minerals (Theragran-M) 1 each PO DAILY [facility] Last Admin: 09/13/16 10:16 Dose: 1 each Polyethylene Glycol (Miralax (For Daily Use) -) 17 gm PO DAILY [facility] Last Admin: 09/13/16 10:14 Dose: 17 gm Potassium Chloride (K-Dur -) 40 meq PO Q6H [facility] Stop: 09/14/16 15:16 Sodium Bicarbonate (Sodium Bicarbonate -) 650 mg PO BID [facility] Last Admin: 09/13/16 21:38 Dose: 650 mg - Objective Vital Signs: Vital Signs Temperature 98.9 F 09/14/16 06:00 Pulse Rate 73 09/14/16 06:00 Respiratory Rate 20 09/14/16 06:00 Blood Pressure 150/87 09/14/16 06:00 O2 Sat by Pulse Oximetry (%) 99 09/14/16 06:00 Constitutional: Yes: No Distress Cardiovascular: Yes: S1, S2. No: JVD Respiratory: Yes: CTA Bilaterally Gastrointestinal: Yes: Soft. No: Tenderness, Rebound Edema: LLE: Trace, RLE: Trace Neurological: Yes: Other (Contracted UE) Labs: CBC, BMP 09/14/16 07:54 09/14/16 07:54 Assessment/Plan Impression PANCHO slowly improving in pt with sepsis ( Urosepsis) and possible MM Hypokalemia Hypercalcemia with anemia R/O MM HTN H/O Cervical Myelopathy DM with LLD CAD CHF Plan Abx as per ID IVF as ordered Replace K cautiously Rpt labs in am [facility] if family consents Discussed with hospitalist Dr Martinez
[2016-09-14] MEDS: DOCUSATE SODIUM 100 MG CAPSULE (FP) PO SCH ×2 (10:00→21:42)
[2016-09-14] MEDS: ARTIFICIAL TEARS (POLYVINYL ALCOHOL 1.4%) OPTH DROPS OU SCH ×2 (10:00→21:44)
[2016-09-14] MEDS: POLYETHYLENE GLYCOL 3350 119 GM BTL PO SCH (10:10)
[2016-09-14] MEDS: FOLIC ACID 1 MG TABLET (FP) PO SCH (10:15)
[2016-09-14] MEDS: CARVEDILOL 3.125 MG TABLET (FP) PO SCH ×2 (10:15→21:42)
[2016-09-14] MEDS: DULoxetine HCL 20 MG CAPSULE.DR (FP) PO SCH (10:15)
[2016-09-14] MEDS: MULTIVITAMINS THER W-MINERALS COMBO TABLET (FP) PO SCH (10:15)
[2016-09-14] MEDS: SODIUM BICARBONATE 650 MG TABLET PO SCH ×2 (10:20→21:42)
[2016-09-14] MEDS: SODIUM CHLORIDE 1,000 ML IV SCH (10:20)
[2016-09-14] MEDS: MIRTAZAPINE 15 MG TABLET (FP) PO SCH (21:42)
[2016-09-14] MEDS: ERYTHROMYCIN 0.5% OPHTHALMIC OINTMENT 3.5 GM TUBE OU SCH (21:43)
[2016-09-15] MEDS: AMPICILLIN NA/SULBACTAM NA 100 ML IVPB SCH ×4 (03:00→21:54)
[2016-09-15 07:43] LABS: BASOPHIL 0.7 % (0-2.0); MCH 31.1 pg (25.7-33.7); MCHC 33.4 g/dl (32.0-35.9); MEAN PLT VOLUME 6.6 fl (7.5-11.1); NEUTROPHILS 68.7 % (42.8-82.8); PLATELET COUNT 152 K/MM3 (134-434); RDW 14.9 % (11.9-15.9); WHITE BLOOD COUNT 5.6 K/mm3 (4.0-10.0)
[2016-09-15 08:00] LABS: CREATININE 1.9 mg/dl (0.6-1.3)
[2016-09-15] MEDS: FOLIC ACID 1 MG TABLET (FP) PO SCH (09:17)
[2016-09-15] MEDS: DOCUSATE SODIUM 100 MG CAPSULE (FP) PO SCH ×2 (09:17→21:55)
[2016-09-15] MEDS: CARVEDILOL 3.125 MG TABLET (FP) PO SCH ×2 (09:17→21:55)
[2016-09-15] MEDS: MULTIVITAMINS THER W-MINERALS COMBO TABLET (FP) PO SCH (09:17)
[2016-09-15] MEDS: SODIUM BICARBONATE 650 MG TABLET PO SCH ×3 (09:17→21:54)
[2016-09-15] MEDS: ARTIFICIAL TEARS (POLYVINYL ALCOHOL 1.4%) OPTH DROPS OU SCH ×2 (09:18→21:54)
[2016-09-15] MEDS: SODIUM CHLORIDE 1,000 ML IV SCH (09:18)
[2016-09-15] MEDS: POLYETHYLENE GLYCOL 3350 119 GM BTL PO SCH (09:19)
--- NOTE | 2016-09-15 09:43 | PN ---
Progress Note, Physician History of Present Illness: Renal f/u Patient in no distress lying in bed and being fed his liquid diet Azotemia slowly improving but HCO3 is lower - Current Medication List Current Medications: Active Medications Acetaminophen (Tylenol -) 650 mg PO Q6H PRN PRN Reason: PAIN Last Admin: 09/13/16 10:16 Dose: 650 mg Artificial Tears (Artificial Tears) 1 drop OU BID [facility] Last Admin: 09/15/16 09:18 Dose: 1 drop Carvedilol (Coreg -) 3.125 mg PO BID [facility] Last Admin: 09/15/16 09:17 Dose: 3.125 mg Docusate Sodium (Colace -) 100 mg PO BID [facility] Last Admin: 09/15/16 09:17 Dose: 100 mg Duloxetine HCl (Cymbalta -) 20 mg PO DAILY [facility] Last Admin: 09/14/16 10:15 Dose: 20 mg Erythromycin (Erythromycin 0.5% Eye Ointment) 1 applic OU HS [facility] Last Admin: 09/14/16 21:43 Dose: 1 applic Folic Acid (Folic Acid -) 1 mg PO DAILY [facility] Last Admin: 09/15/16 09:17 Dose: 1 mg Sodium Chloride (Normal Saline -) 1,000 mls @ 43 mls/hr IV ASDIR [facility] Last Admin: 09/15/16 09:18 Dose: 43 mls/hr Ampicillin Sodium/Sulbactam Sodium (Unasyn 1.5 Gm (Pre-Docked)) 100 mls @ 200 mls/hr IVPB Q6H-IV [facility] Last Admin: 09/15/16 09:18 Dose: 200 mls/hr Mirtazapine (Remeron -) 30 mg PO HS [facility] Last Admin: 09/14/16 21:42 Dose: 30 mg Multivitamins/Minerals (Theragran-M) 1 each PO DAILY [facility] Last Admin: 09/15/16 09:17 Dose: 1 each Polyethylene Glycol (Miralax (For Daily Use) -) 17 gm PO DAILY [facility] Last Admin: 09/15/16 09:19 Dose: 17 gm Sodium Bicarbonate (Sodium Bicarbonate -) 650 mg PO BID [facility] Last Admin: 09/15/16 09:17 Dose: 650 mg - Objective Vital Signs: Vital Signs Temperature 98.1 F 09/15/16 06:22 Pulse Rate 79 09/15/16 06:22 Respiratory Rate 18 09/15/16 06:22 Blood Pressure 135/76 09/15/16 06:22 O2 Sat by Pulse Oximetry (%) 95 09/15/16 06:22 Constitutional: Yes: No Distress Cardiovascular: Yes: S1, S2. No: JVD Respiratory: Yes: CTA Bilaterally Gastrointestinal: Yes: Soft. No: Tenderness, Rebound Edema: No Labs: CBC, BMP 09/15/16 05:45 09/15/16 05:45 Assessment/Plan Impression PANCHO slowly improving in pt with sepsis ( Urosepsis) and possible MM Hyperchloremic Metabolic Acidosis suggested by the BMP S/P Hypokalemia Hypercalcemia with anemia ruling out MM- Corrected Ca now about 10.6 HTN H/O Cervical Myelopathy DM with LLD CAD CHF Plan Abx as per ID NaHCO3 to be 1300 mgs po TID Rpt labs in am [facility] if family consents Discussed with hospitalist Dr Martinez
--- NOTE | 2016-09-15 12:13 | PN ---
Physical Exam: SUBJECTIVE: Patient seen and examined. Resting comfortably. OBJECTIVE: Vital Signs Period Temp Pulse Resp BP Sys/Mcmahon Pulse Ox Last 24 Hr 97.9 F-98.6 F 79-88 17-18 135-139/76-79 95-97 GENERAL: The patient is awake. A&O x 1. Easily arousable. HEAD: Normal with no signs of trauma. EYES: PERRL, extraocular movements intact, sclera anicteric, conjunctiva clear. No ptosis. LUNGS: CTA HEART: Regular rate and rhythm, S1, S2 without murmur, rub or gallop. ABDOMEN: Soft, nontender, nondistended, normoactive bowel sounds, no guarding, no rebound EXTREMITIES: 2+ pulses, warm, well-perfused, no edema. NEUROLOGICAL: Cranial nerves II through XII grossly intact. Speech is clear. Laboratory Results - last 24 hr 09/15/16 09/15/16 05:45 05:45 WBC 5.6 RBC 2.90 L Hgb 9.0 L Hct 27.0 L MCV 93.0 MCHC 33.4 RDW 14.9 Plt Count 152 MPV 6.6 L Neutrophils % 68.7 Lymphocytes % 21.9 Monocytes % 6.7 Eosinophils % 2.0 Basophils % 0.7 Sodium 139 Potassium 4.4 D Chloride 110 H Carbon Dioxide 15 L Anion Gap 14 BUN 28 H Creatinine 1.9 H Creat Clearance w eGFR 35.32 Random Glucose 70 L Calcium 9.0 Current Medications Generic Name Dose Route Start Last Admin Trade Name Freq PRN Reason Stop Dose Admin Acetaminophen 650 mg 09/07/16 12:23 09/13/16 10:16 Tylenol - PO 650 mg Q6H PRN Administration PAIN Artificial Tears 1 drop 09/07/16 10:00 09/15/16 09:18 Artificial Tears OU 1 drop BID LINDA Administration Carvedilol 3.125 mg 09/07/16 10:00 09/15/16 09:17 Coreg - PO 3.125 mg BID LINDA Administration Docusate Sodium 100 mg 09/07/16 22:00 09/15/16 09:17 Colace - PO 100 mg BID LINDA Administration Duloxetine HCl 20 mg 09/13/16 10:00 09/14/16 10:15 Cymbalta - PO 20 mg DAILY LINDA Administration Erythromycin 1 applic 09/07/16 22:00 09/14/16 21:43 Erythromycin 0.5% Eye Ointment OU 1 applic HS LINDA Administration Folic Acid 1 mg 09/07/16 10:00 09/15/16 09:17 Folic Acid - PO 1 mg DAILY LINDA Administration Sodium Chloride 1,000 mls @ 43 mls/hr 09/13/16 10:13 09/15/16 09:18 Normal Saline - IV 43 mls/hr ASDIR LINDA Administration Ampicillin Sodium/Sulbactam Sodium 100 mls @ 200 mls/hr 09/13/16 10:45 09:18 Unasyn 1.5 Gm (Pre-Docked) IVPB 200 mls/hr Q6H-IV LINDA Administration Mirtazapine 30 mg 09/09/16 22:00 09/14/16 21:42 Remeron - PO 30 mg HS LINDA Administration Multivitamins/Minerals 1 each 09/07/16 16:30 09/15/16 09:17 Theragran-M PO 1 each DAILY LINDA Administration Polyethylene Glycol 17 gm 09/09/16 14:45 09/15/16 09:19 Miralax (For Daily Use) - PO 17 gm DAILY LINDA Administration Sodium Bicarbonate 1,300 mg 09/15/16 14:00 Sodium Bicarbonate - PO TID LINDA ASSESSMENT/PLAN: 70 year-old male with a PMH of HTN, HLD, CAD, CHF, CAD, PPM, dementia, DM and cervical myelopathy who was admitted for anemia. Anemia secondary to multiple myeloma --seen and evaluated by heme/onc, clinical picture is consistent with multiple myeloma --was transfused 2 units on 09/07 and 1 unit on 09/12, h/h stable --family does not want further workup or invasive interventions Acute kidney injury, improved Bilateral hydronephrosis, acute on chronic Neurogenic bladder, chronic --09/09 CTAP: moderate to severe b/l hydro with marked dilitation of tortuous ureters; per urology, this is c/w chronic neurogenic bladder--->thickened bladder bundy -->high pressure bladder-->reflux to kidneys bilaterally --hydro and renal function have improved with winston drainage; Cr 3.7 on admission, downtrending today 1.9 (baseline 0.8) Hyperchloremic metabolic acidosis --per renal, increase bicarb PO to 1300mg TID E.coli bacteremia --afebrile, no leukocytosis --Antibiotics to date: Vanco x 1 (09/12); cefepime (09/10-->09/13); Unasyn (09/13 --> ) Enterococcus UTI --antibiotics as above Hypercalcemia --corrected calcium 10.6 --continue very gentle IV fluids Hypertension --continue carvedilol Hyperlipidemia --on no meds CAD s/p PPM --continue carvedilol Chronic systolic and diastolic heart failure --last echo 2012 --new echo ordered Dementia/depression - cont remeron, Cymbalta DVT PPX: defer heparin due to anemia; SCDs FEN Fluids: NS @43cc/hr Electrolytes: replete as indicated; replete K cautiously Nutrition: low sodium diet Dispo: pt currently requires inpatient care. Visit type - Emergency Visit Emergency Visit: Yes ED Registration Date: 09/06/16 Care time: The patient presented to the Emergency Department on the above date and was hospitalized for further evaluation of their emergent condition. - New Patient This patient is new to me today: No - Critical Care Critical Care patient: No
[2016-09-15 15:07] LABS: ALBUMIN 1.8 g/dl (3.5-5.0); BILIRUBIN,TOTAL 0.3 mg/dl (0.2-1.0); MAGNESIUM 1.8 mg/dL (1.8-2.4); PHOSPHOROUS 2.2 mg/dl (2.5-4.6)
[2016-09-15] MEDS: ERYTHROMYCIN 0.5% OPHTHALMIC OINTMENT 3.5 GM TUBE OU SCH (21:54)
[2016-09-15] MEDS: MIRTAZAPINE 15 MG TABLET (FP) PO SCH (21:55)
[2016-09-15] MEDS: DULoxetine HCL 20 MG CAPSULE.DR (FP) PO SCH (23:26)
[2016-09-16] MEDS: AMPICILLIN NA/SULBACTAM NA 100 ML IVPB SCH (02:52)
[2016-09-16 06:11] VITALS: BP 127/84; PULSE 79; TEMP 98.8
[2016-09-16] MEDS: SODIUM BICARBONATE 650 MG TABLET PO SCH (07:12)
[2016-09-16 08:38] LABS: BASOPHIL 1.1 % (0-2.0); MCH 31.7 pg (25.7-33.7); MEAN CELL VOLUME 93.1 fl (80-96); MEAN PLT VOLUME 6.4 fl (7.5-11.1); NEUTROPHILS 66.6 % (42.8-82.8); PLATELET COUNT 151 K/MM3 (134-434); WHITE BLOOD COUNT 5.3 K/mm3 (4.0-10.0)
[2016-09-16 08:56] LABS: CREATININE 1.8 mg/dl (0.6-1.3)
--- NOTE | 2016-09-16 09:21 | PN ---
Progress Note, Physician History of Present Illness: Awake, responsive No complaints offered No acute distress Afebrile WBC WNL Azotemia improved - Current Medication List Current Medications: Active Medications Acetaminophen (Tylenol -) 650 mg PO Q6H PRN PRN Reason: PAIN Last Admin: 09/13/16 10:16 Dose: 650 mg Artificial Tears (Artificial Tears) 1 drop OU BID [facility] Last Admin: 09/15/16 21:54 Dose: 1 drop Carvedilol (Coreg -) 3.125 mg PO BID [facility] Last Admin: 09/15/16 21:55 Dose: 3.125 mg Docusate Sodium (Colace -) 100 mg PO BID [facility] Last Admin: 09/15/16 21:55 Dose: 100 mg Duloxetine HCl (Cymbalta -) 20 mg PO DAILY [facility] Last Admin: 09/15/16 23:26 Dose: Not Given Erythromycin (Erythromycin 0.5% Eye Ointment) 1 applic OU HS [facility] Last Admin: 09/15/16 21:54 Dose: 1 applic Folic Acid (Folic Acid -) 1 mg PO DAILY [facility] Last Admin: 09/15/16 09:17 Dose: 1 mg Sodium Chloride (Normal Saline -) 1,000 mls @ 43 mls/hr IV ASDIR [facility] Last Admin: 09/15/16 09:18 Dose: 43 mls/hr Ampicillin Sodium/Sulbactam Sodium (Unasyn 1.5 Gm (Pre-Docked)) 100 mls @ 200 mls/hr IVPB Q6H-IV [facility] Last Admin: 09/16/16 02:52 Dose: 200 mls/hr Mirtazapine (Remeron -) 30 mg PO HS [facility] Last Admin: 09/15/16 21:55 Dose: 30 mg Multivitamins/Minerals (Theragran-M) 1 each PO DAILY [facility] Last Admin: 09/15/16 09:17 Dose: 1 each Polyethylene Glycol (Miralax (For Daily Use) -) 17 gm PO DAILY [facility] Last Admin: 09/15/16 09:19 Dose: 17 gm Sodium Bicarbonate (Sodium Bicarbonate -) 1,300 mg PO TID [facility] Last Admin: 09/16/16 07:12 Dose: 1,300 mg - Objective Vital Signs: Vital Signs Temperature 98.8 F 09/16/16 06:00 Pulse Rate 79 09/16/16 06:00 Respiratory Rate 20 09/16/16 06:00 Blood Pressure 127/84 09/16/16 06:00 O2 Sat by Pulse Oximetry (%) 95 09/15/16 06:22 Constitutional: Yes: No Distress Eyes: Yes: Conjunctiva Clear Cardiovascular: Yes: Regular Rate and Rhythm, S1 Respiratory: Yes: CTA Bilaterally Gastrointestinal: Yes: Normal Bowel Sounds, Soft. No: Tenderness Extremities: Yes: Other (+ contractures) Edema: No Labs: CBC, BMP 09/16/16 08:00 09/16/16 08:00 Assessment/Plan Gram Negative bacteremia/sepsis, likely source- E coli Hydronephrosis Renal failure- improving Substitute Augmentin 500mg po bid x 7d
--- NOTE | 2016-09-16 09:31 | PN ---
Progress Note, Physician History of Present Illness: Pt seen and examined at bedside. He is awake and appears comfortable. - Current Medication List Current Medications: Active Medications Acetaminophen (Tylenol -) 650 mg PO Q6H PRN PRN Reason: PAIN Last Admin: 09/13/16 10:16 Dose: 650 mg Amoxicillin/Clavulanate Potassium (Augmentin - 500mg Tablet) 1 tab PO BID@0800, 1730 [facility] Artificial Tears (Artificial Tears) 1 drop OU BID [facility] Last Admin: 09/15/16 21:54 Dose: 1 drop Carvedilol (Coreg -) 3.125 mg PO BID [facility] Last Admin: 09/15/16 21:55 Dose: 3.125 mg Docusate Sodium (Colace -) 100 mg PO BID [facility] Last Admin: 09/15/16 21:55 Dose: 100 mg Duloxetine HCl (Cymbalta -) 20 mg PO DAILY [facility] Last Admin: 09/15/16 23:26 Dose: Not Given Erythromycin (Erythromycin 0.5% Eye Ointment) 1 applic OU HS [facility] Last Admin: 09/15/16 21:54 Dose: 1 applic Folic Acid (Folic Acid -) 1 mg PO DAILY [facility] Last Admin: 09/15/16 09:17 Dose: 1 mg Sodium Chloride (Normal Saline -) 1,000 mls @ 43 mls/hr IV ASDIR [facility] Last Admin: 09/15/16 09:18 Dose: 43 mls/hr Mirtazapine (Remeron -) 30 mg PO HS [facility] Last Admin: 09/15/16 21:55 Dose: 30 mg Multivitamins/Minerals (Theragran-M) 1 each PO DAILY [facility] Last Admin: 09/15/16 09:17 Dose: 1 each Polyethylene Glycol (Miralax (For Daily Use) -) 17 gm PO DAILY [facility] Last Admin: 09/15/16 09:19 Dose: 17 gm Sodium Bicarbonate (Sodium Bicarbonate -) 1,300 mg PO TID [facility] Last Admin: 09/16/16 07:12 Dose: 1,300 mg - Objective Vital Signs: Vital Signs Temperature 98.8 F 09/16/16 06:00 Pulse Rate 79 09/16/16 06:00 Respiratory Rate 20 09/16/16 06:00 Blood Pressure 127/84 09/16/16 06:00 O2 Sat by Pulse Oximetry (%) 95 09/15/16 06:22 Constitutional: Yes: Calm Eyes: Yes: Conjunctiva Clear HENT: Yes: Atraumatic Cardiovascular: Yes: S1, S2 Respiratory: Yes: CTA Bilaterally Gastrointestinal: Yes: Soft Genitourinary: Yes: Winston Present Musculoskeletal: Yes: Muscle Weakness Edema: No Neurological: Yes: Pre-Existing Deficit Labs: CBC, BMP 09/16/16 08:00 09/16/16 08:00 Assessment/Plan Current Medications Generic Name Dose Route Start Last Admin Trade Name Freq PRN Reason Stop Dose Admin Acetaminophen 650 mg 09/07/16 12:23 09/13/16 10:16 Tylenol - PO 650 mg Q6H PRN Administration PAIN Amoxicillin/Clavulanate Potassium 1 tab 09/16/16 17:30 Augmentin - 500mg Tablet PO BID@0800,1730 [facility] Artificial Tears 1 drop 09/07/16 10:00 09/15/16 21:54 Artificial Tears OU 1 drop BID [facility] Administration Carvedilol 3.125 mg 09/07/16 10:00 09/15/16 21:55 Coreg - PO 3.125 mg BID [facility] Administration Docusate Sodium 100 mg 09/07/16 22:00 09/15/16 21:55 Colace - PO 100 mg BID [facility] Administration Duloxetine HCl 20 mg 09/13/16 10:00 09/15/16 23:26 Cymbalta - PO Not Given DAILY [facility] Erythromycin 1 applic 09/07/16 22:00 09/15/16 21:54 Erythromycin 0.5% Eye Ointment OU 1 applic HS [facility] Administration Folic Acid 1 mg 09/07/16 10:00 09/15/16 09:17 Folic Acid - PO 1 mg DAILY [facility] Administration Sodium Chloride 1,000 mls @ 43 mls/hr 09/13/16 10:13 09/15/16 09:18 Normal Saline - IV 43 mls/hr ASDIR [facility] Administration Mirtazapine 30 mg 09/09/16 22:00 09/15/16 21:55 Remeron - PO 30 mg HS [facility] Administration Multivitamins/Minerals 1 each 09/07/16 16:30 09/15/16 09:17 Theragran-M PO 1 each DAILY [facility] Administration Polyethylene Glycol 17 gm 09/09/16 14:45 09/15/16 09:19 Miralax (For Daily Use) - PO 17 gm DAILY [facility] Administration Sodium Bicarbonate 1,300 mg 09/15/16 14:00 09/16/16 07:12 Sodium Bicarbonate - PO 1,300 mg TID [facility] Administration Laboratory Tests 09/11/16 Unknown ESTELA Screen Pending Hep Bs Antigen Pending Hep Bs Antibody Pending Hep B Core Total Ab Pending Impression 1. PANCHO 2. hypercalcemia 3. HTN 4. hx CVA 5. CAD 6. CHF 7. Chol 8. DM 9. anemia 10. possible myeloma 11. UTI Plan - renal function continues to improve today - labs reviewed - keep winston catheter in place - family do not want myeloma wokrup, kappa chains are elevated - calcium level is improving, will need to monitor labs - abx per ID - discussed with hospitalist - follow up hep serologies and estela Dr Silva
--- NOTE | 2016-09-16 09:58 | PN ---
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 Depressed. PO intake limited. Suggest : Out pt MBS at [facility] to upgrade diet to visualize swallowing function and to r/o aspiration/stasis and to upgrade to most liberal diet pt can tolerate.
[2016-09-16] MEDS: DOCUSATE SODIUM 100 MG CAPSULE (FP) PO SCH (10:42)
[2016-09-16] MEDS: MULTIVITAMINS THER W-MINERALS COMBO TABLET (FP) PO SCH (10:42)
[2016-09-16] MEDS: FOLIC ACID 1 MG TABLET (FP) PO SCH (10:42)
[2016-09-16] MEDS: ARTIFICIAL TEARS (POLYVINYL ALCOHOL 1.4%) OPTH DROPS OU SCH (10:42)
[2016-09-16] MEDS: DULoxetine HCL 20 MG CAPSULE.DR (FP) PO SCH (10:42)
[2016-09-16] MEDS: POLYETHYLENE GLYCOL 3350 119 GM BTL PO SCH (10:42)
[2016-09-16] MEDS: CARVEDILOL 3.125 MG TABLET (FP) PO SCH (10:42)
[2016-09-16] MEDS ORDERED: AMOX TR/POT CLAV 500MG/125MG TABLETS (FP) PO SCH (17:30)
--- NOTE | 2016-09-20 13:42 | PN ---
Progress Note (short form) - Note Progress Note: Rediscussed with patient s daughter over the phone the diagnosis of myeloma. Treaatment options . But given his overallpoor baseline functional status, dementia she would like to pursue palliative care. sheis concerned about his quality of life. She understands that unless we treat he would have progressive renal failure, need for dialysis and survival may be < 3 months. Given his functional status she wants to be conservative and not consider steroids either. I asked her to contact us for any further questions
[2016-09-21 17:51] LABS: HEP B SURFACE AB NON REACTIVE
[2016-09-26 13:44] LABS: A/G RATIO 0.4; ALBUMIN 2.8 gm/dl (3.5-4.7); GLOBULIN, TOTAL 7.4; M-SPIKE 5.3; TOTAL PROTEIN 10.2
== END 2016-09-16 12:40 | DRG 840 ==
LOC: FER 18:53 → FM/S 22:48
PROVIDERS: ADMIT Internal Medicine; ATTEND Nurse Practitioner Family
PROC: 30233N1 Transfusion of Nonautologous Red Blood Cells into Peripheral Vein, Percutaneous Approach (ICD-10-PCS; principal; 2016-09-12)
DX: C90.00 Multiple myeloma not having achieved remission (principal); A41.51 Sepsis due to Escherichia coli [E. coli]; N17.9 Acute kidney failure, unspecified; N13.30 Unspecified hydronephrosis; N39.0 Urinary tract infection, site not specified; E87.2 Acidosis; Z95.0 Presence of cardiac pacemaker; I25.10 Atherosclerotic heart disease of native coronary artery without angina pectoris; F03.90 Unspecified dementia, unspecified severity, without behavioral disturbance, psychotic disturbance, mood disturbance, and anxiety; I10 Essential (primary) hypertension; E78.5 Hyperlipidemia, unspecified; E11.9 Type 2 diabetes mellitus without complications; E83.52 Hypercalcemia; E88.09 Other disorders of plasma-protein metabolism, not elsewhere classified; N31.9 Neuromuscular dysfunction of bladder, unspecified; D63.0 Anemia in neoplastic disease
CPT/HCPCS: 36415; 36430; 70450-TC; 70490-TC; 71010-TC; 74176-TC; 76775-TC; 80048; 80053; 80076; 81003; 81015; 82272; 82310; 82436; 82570; 82607; 82746; 82784; 83540; 83550; 83615; 83735; 83883; 83970; 84100; 84133; 84155; 84156; 84165; 84300; 84550; 85025; 85027; 85651; 86038; 86140; 86704; 86706; 86708; 86803; 86850; 86900; 86901; 86922; 87040; 87086; 87186; 87340; 93005; 93306-TC; 97116-GP; 97162-PG; 99283-25; P9038; P9058

== ENCOUNTER 2016-10-09 16:04 | Inpatient (IN) | payer OTHER, BC ==
--- NOTE | 2016-10-09 16:10 | PDOC ---
[id number] Dementia - History of Present Illness Initial Comments: 10/09/16 16:20 The patient is a 70 year old male, with a significant past medical history of dementia, cervical myelopathy, CAD, CHF s/p pacemaker, HTN, HLD, and diabetes who was BIBA from [facility] and was sent to the emergency department with low H&H. Patient does not know why he was sent here. This HPI is limited secondary to patients dementia. Allergies: NKDA Past surgical history: PPM, neck surgery, spine surgery. Social History: Denies EtOH, drug, or tobacco use. Longterm: [facility] PCP: Dr. Gustavo Polanco <Timi Brown - Last Filed: 10/09/16 16:19> <Charu Diaz - Last Filed: 10/16/16 07:52> - General Chief Complaint: Revisit, Lab Variance Stated Complaint: LOW H/H Past History <Timi Brown - Last Filed: 10/09/16 16:19> - Past Medical History Cardiac Disorders: Yes (CAD, pacemaker) CHF: Yes Dementia: Yes Diabetes: Yes HTN: Yes Hypercholesterolemia: Yes - Surgical History Cardiac Surgery: Yes (PPM) Neurologic Surgery: Yes (C5 C6 SURGERY) - Immunization History Td Vaccination: Yes TDAP Vaccination: Yes Immunization Up to Date: Yes - Psycho/Social/Smoking Cessation Hx Anxiety: No Suicidal Ideation: No Smoking History: Unknown if ever smoked Have you smoked in the past 12 months: No Number of Cigarettes Smoked Daily: 0 Hx Alcohol Use: No Drug/Substance Use Hx: No Substance Use Type: None <Charu Diaz - Last Filed: 10/16/16 07:52> - Past Medical History Allergies/Adverse Reactions: Allergies Allergy/AdvReac Type Severity Reaction Status Date / Time No Known Allergies Allergy Verified 10/09/16 16:09 Home Medications: Ambulatory Orders Acetaminophen [Tylenol] 650 mg PO PRN PRN 10/09/16 Ascorbate Calcium [Vitamin C] 500 mg PO DAILY 10/09/16 Carvedilol [Coreg -] 3.125 mg PO BID 10/09/16 Docusate Liquid [Colace Liquid -] 100 mg PO BID 10/09/16 Doxazosin Mesylate [Cardura -] 1 mg PO HS 10/09/16 Duloxetine HCl [Cymbalta] 20 mg PO DAILY 10/09/16 Folic Acid 1 mg PO DAILY 10/09/16 Hypromellose 0.5% Opth Soln [Artificial Tears] 1 drop BID 10/09/16 Mirtazapine [Remeron -] 30 mg PO DAILY 10/09/16 Multivit with Iron-Minerals [Compete] 1 each PO DAILY 10/09/16 Na Phos,M-B/Na Phos,Di-Ba [Fleet Enema] 133 ml RC ASDIR 10/09/16 Polyethylene Glycol 3350 [Miralax (For Daily Use) -] 17 gm PO DAILY 10/09/16 Sodium Bicarbonate - 1,300 mg PO TID 10/09/16 Levofloxacin [Levaquin -] 250 mg PO DAILY #7 tablet 10/13/16 Review of Systems - Review of Systems Able to Perform ROS?: No (Dementia ) <Timi Brown - Last Filed: 10/09/16 16:19> *Physical Exam - Physical Exam Comments: GENERAL: Awake, alert, in no acute distress. Disoriented to place and time. HEAD: No signs of trauma EYES: PERRLA, EOMI, sclera anicteric, +conjunctival pallor ENT: Auricles normal inspection, hearing grossly normal, nares patent, oropharynx clear without exudates. Dry mucosa NECK: Normal ROM, supple, no lymphadenopathy, JVD, or masses LUNGS: Breath sounds equal, clear to auscultation bilaterally. No wheezes, and no crackles HEART: Regular rate and rhythm, normal S1 and S2, no murmurs, rubs or gallops ABDOMEN: Soft, nontender, normoactive bowel sounds. No guarding, no rebound. No masses EXTREMITIES: Normal range of motion, no edema. No clubbing or cyanosis. No cords, erythema, or tenderness NEUROLOGICAL: Cranial nerves II through XII grossly intact. Normal speech, normal gait SKIN: Warm, Dry, normal turgor, no rashes or lesions noted. +Pallor. <Charu Diaz - Last Filed: 10/16/16 07:52> ED Treatment Course - LABORATORY CBC & Chemistry Diagram: 10/12/16 08:10 10/12/16 08:10 <Charu Diaz - Last Filed: 10/16/16 07:52> Medical Decision Making - Medical Decision Making 10/09/16 16:33 Discussion with HCP Aster Mcmillan. She consents for blood transfusion via phone. Patient has suspected multiple myeloma (although daughter states he is not aware of this diagnosis- concerned that his mental health may decline), has had prior transfusions. They decline bone marrow biopsy, but request blood transfusions as needed for symptomatic anemia. <Charu Diaz - Last Filed: 10/16/16 07:52> *DC/Admit/Observation/Transfer - Attestations Scribe Attestion: 10/09/16 16:20 Documentation prepared by Timi Brown, acting as medical technologist blood bank for Charu Diaz MD. <Timi Brown - Last Filed: 10/09/16 16:19> - Discharge Dispostion Admit: Yes <Charu Diaz - Last Filed: 10/16/16 07:52> Diagnosis at time of Disposition: Anemia Qualifiers: Anemia type: unspecified type Qualified Code(s): D64.9 - Anemia, unspecified Acute renal failure Qualifiers: Acute renal failure type: unspecified Qualified Code(s): N17.9 - Acute kidney failure, unspecified - Discharge Dispostion Disposition: [facility] Condition at time of disposition: Stable - Prescriptions
[2016-10-09 16:30] VITALS: BMI 25.0
[2016-10-09 17:20] LABS: BASOPHIL 0.4 % (0-2.0); EOSINOPHIL 1.6 % (0-4.5); MCH 29.6 pg (25.7-33.7); MEAN CELL VOLUME 92.6 fl (80-96); MEAN PLT VOLUME 6.3 fl (7.5-11.1); NEUTROPHILS 62.8 % (42.8-82.8); PLATELET COUNT 170 K/MM3 (134-434); RDW 14.3 % (11.9-15.9); WHITE BLOOD COUNT 5.1 K/mm3 (4.0-10.0)
[2016-10-09 17:21] LABS: INR 1.29 (0.82-1.09); PROTHROMBIN TIME (PATIENT) 14.4 SEC (10.2-13.0)
[2016-10-09 17:30] LABS: ALBUMIN 1.9 g/dl (3.5-5.0); ALK PHOS 33 U/L (32-92); ANION GAP 15 (8-16); CALCIUM 10.4 mg/dl (8.4-10.2); CO2 25 mmol/L (22-28); CREATININE 3.1 mg/dl (0.6-1.3); GLUCOSE,RANDOM 124 mg/dl (74-106); LDH 80 U/L (91-180); SGOT/AST 17 U/L (10-42); TOT PROT 10.8 g/dl (6.4-8.3)
[2016-10-09] MEDS ORDERED: SODIUM CHLORIDE 500 ML IV STA (17:41)
[2016-10-09 17:43] LABS: BILIRUBIN,TOTAL < 0.3 mg/dl (0.2-1.0); SGPT/ALT < 9 U/L (10-40)
[2016-10-09 18:35] LABS: PH,URINE 8.5 (4.5-8); URINE APPEARANCE Cloudy; URINE BILIRUBIN Negative (NEGATIVE); URINE GLUCOSE (UA) Negative (NEGATIVE); URINE KETONE Negative (NEGATIVE); URINE NITRITE Positive (NEGATIVE); URINE UROBILINOGEN 0.2 E.U/dl (0.2-1.0)
[2016-10-09 19:04] LABS: FERRITIN 784.501 ng/ml (16.4-293.9)
--- NOTE | 2016-10-09 19:24 | HP ---
Admitting History and Physical - Primary Care Physician PCP: Mary Person - Admission History of Present Illness: 70 year old male, with a significant past medical history of dementia, cervical myelopathy, CAD, CHF s/p pacemaker, HTN, HLD, and diabetes who was BIBA from [facility] and was sent to the emergency department with low H&H. Patient does not know why he was sent here. This HPI is limited secondary to patients dementia. 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 Cardiovascular: Yes: CAD, CHF, HTN, Hyperlipdemia Renal/: Yes: Neurogenic Bladder Heme/Onc: Yes: Other (myeloma) Endocrine: Yes: Diabetes Mellitus - Past Surgical History Past Surgical History: Yes: Permanent Pacemaker - Smoking History Smoking history: Unknown if ever smoked Have you smoked in the past 12 months: No Aproximately how many cigarettes per day: 0 - Alcohol/Substance Use Hx Alcohol Use: No Home Medications - Allergies Allergies/Adverse Reactions: Allergies Allergy/AdvReac Type Severity Reaction Status Date / Time No Known Allergies Allergy Verified 10/09/16 16:09 - Home Medications Home Medications: Ambulatory Orders Acetaminophen [Tylenol] 650 mg PO PRN PRN 10/09/16 Ascorbate Calcium [Vitamin C] 500 mg PO DAILY 10/09/16 Carvedilol [Coreg -] 3.125 mg PO BID 10/09/16 Docusate Liquid [Colace Liquid -] 100 mg PO BID 10/09/16 Doxazosin Mesylate [Cardura -] 1 mg PO HS 10/09/16 Duloxetine HCl [Cymbalta] 20 mg PO DAILY 10/09/16 Folic Acid 1 mg PO DAILY 10/09/16 Hypromellose 0.5% Opth Soln [Artificial Tears] 1 drop BID 10/09/16 Mirtazapine [Remeron -] 30 mg PO DAILY 10/09/16 Multivit with Iron-Minerals [Compete] 1 each PO DAILY 10/09/16 Na Phos,M-B/Na Phos,Di-Ba [Fleet Enema] 133 ml RC ASDIR 10/09/16 Polyethylene Glycol 3350 [Miralax (For Daily Use) -] 17 gm PO DAILY 10/09/16 Sodium Bicarbonate - 1,300 mg PO TID 10/09/16 Physical Examination Vital Signs: Vital Signs Temperature 98.2 F 10/09/16 17:57 Pulse Rate 98 H 10/09/16 17:57 Respiratory Rate 18 10/09/16 17:57 Blood Pressure 151/84 10/09/16 17:57 O2 Sat by Pulse Oximetry (%) 99 10/09/16 17:57 Constitutional: Yes: Calm HENT: Yes: Atraumatic Neck: Yes: Supple Cardiovascular: Yes: Regular Rate and Rhythm Respiratory: Yes: CTA Bilaterally Gastrointestinal: Yes: Normal Bowel Sounds Extremities: Yes: WNL Neurological: Yes: Alert Imaging - Results X-ray: Report Reviewed Problem List - Problems (1) Anemia Code(s): D64.9 - ANEMIA, UNSPECIFIED Qualifiers: Anemia type: unspecified type Qualified Code(s): D64.9 - Anemia, unspecified (2) CHF (congestive heart failure) Code(s): I50.9 - HEART FAILURE, UNSPECIFIED (3) Dementia Code(s): F03.90 - UNSPECIFIED DEMENTIA WITHOUT BEHAVIORAL DISTURBANCE (4) Diabetes mellitus Code(s): E11.9 - TYPE 2 DIABETES MELLITUS WITHOUT COMPLICATIONS (5) HTN (hypertension) Code(s): I10 - ESSENTIAL (PRIMARY) HYPERTENSION (6) Neurogenic urinary bladder disorder Code(s): N31.9 - NEUROMUSCULAR DYSFUNCTION OF BLADDER, UNSPECIFIED (7) Myeloma Code(s): C90.00 - MULTIPLE MYELOMA NOT HAVING ACHIEVED REMISSION Assessment/Plan Laboratory Tests 10/09/16 10/09/16 10/09/16 16:26 16:26 16:26 WBC 5.1 RBC 2.28 L Hgb 6.7 L* D Hct 21.1 L D MCV 92.6 MCHC 32.0 RDW 14.3 Plt Count 170 MPV 6.3 L Neutrophils % 62.8 Lymphocytes % 28.2 D Monocytes % 7.0 Eosinophils % 1.6 Basophils % 0.4 Retic Count 0.74 INR 1.29 H Sodium 137 Potassium 3.8 Chloride 97 L D Carbon Dioxide 25 D Anion Gap 15 BUN 46 H D Creatinine 3.1 H D Creat Clearance w eGFR 20.08 Random Glucose 124 H D Calcium 10.4 H Ferritin 784.501 H Total Bilirubin < 0.3 AST 17 ALT < 9 L Alkaline Phosphatase 33 LD Total 80 L Total Protein 10.8 H Albumin 1.9 L Urine Creatinine Crossmatch 10/09/16 10/09/16 16:26 18:20 WBC RBC Hgb Hct MCV MCHC RDW Plt Count MPV Neutrophils % Lymphocytes % Monocytes % Eosinophils % Basophils % Retic Count INR Sodium Potassium Chloride Carbon Dioxide Anion Gap BUN Creatinine Creat Clearance w eGFR Random Glucose Calcium Ferritin Total Bilirubin AST ALT Alkaline Phosphatase LD Total Total Protein Albumin Urine Creatinine 37.0 Crossmatch See Detail 1.anemia pt was sent from [place] for low h/h will transfuse 2 u prbc 2.ckd elevated bun /cr could be dehydration reluctant to start fluids as h/o chf and getting 2 u blood 3.myeloma family does not want treatment or work up
[2016-10-09 19:42] LABS: URINE BLOOD 3+ (NEGATIVE); URINE COLOR YELLOW; URINE LEUK ESTERASE 3+ (NEGATIVE); URINE PROTEIN 3+ (NEGATIVE)
[2016-10-09 19:43] LABS: URINE BACTERIA MODERATE /hpf (NEGATIVE); URINE RBC 0-2 /hpf (0-3); URINE WBC MANY (3-5)
[2016-10-09] MEDS ORDERED: MIRTAZAPINE 15 MG TABLET (FP) ONE (21:03)
[2016-10-09] MEDS: CARVEDILOL 3.125 MG TABLET (FP) PO SCH (22:32)
[2016-10-09] MEDS: MIRTAZAPINE 30 MG TABLET (FP) PO SCH (22:33)
[2016-10-09] MEDS: DOXAZOSIN MESYLATE 1 MG TABLET PO SCH (22:33)
[2016-10-10 08:11] LABS: HAPTOGLOBIN 106 mg/dL (34-200); TRANSFERRIN 94 mg/dL (200-370)
[2016-10-10 08:13] LABS: BASOPHIL 0.6 % (0-2.0); EOSINOPHIL 1.2 % (0-4.5); MCH 31.1 pg (25.7-33.7); MCHC 35.2 g/dl (32.0-35.9); MEAN CELL VOLUME 88.5 fl (80-96); PLATELET COUNT 166 K/MM3 (134-434); RDW 15.3 % (11.9-15.9); WHITE BLOOD COUNT 5.7 K/mm3 (4.0-10.0)
[2016-10-10 09:04] LABS: ALBUMIN 1.9 g/dl (3.5-5.0); ALK PHOS 32 U/L (32-92); ANION GAP 15 (8-16); BILIRUBIN,TOTAL 0.5 mg/dl (0.2-1.0); CALCIUM 10.3 mg/dl (8.4-10.2); CO2 23 mmol/L (22-28); CREATININE 2.7 mg/dl (0.6-1.3); GLUCOSE,RANDOM 89 mg/dl (74-106); SGOT/AST 15 U/L (10-42)
--- NOTE | 2016-10-10 09:09 | CONSULT ---
Consult Consult Specialty:: Nephrology Reason for Consultation:: PANCHO - History of Present Illness Chief Complaint: sent in for low hemoglobin History of Present Illness: Pt is a 70 year old male with history of dementia, CAD, CHF, HTN, Chol, DM and cervical myelopathy who was sent in from the [place] for low Hg. He was found to have elevated creatinine and I was called to evaluate him. He does not know why he is here. I did see him on his last admission for PANCHO. Pt had elevated kappa chains however family did not want a bone marrow or any invasive workup. He denies shortness of breath. 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 Cardio/Vascular: Yes: CAD, CHF, HTN, Hyperlipdemia Renal/: Yes: Neurogenic Bladder Endocrine: Yes: Diabetes Mellitus - Past Surgical History Past Surgical History: Yes: Permanent Pacemaker - Alcohol/Substance Use Hx Alcohol Use: No - Smoking History Smoking history: Unknown if ever smoked Have you smoked in the past 12 months: No Aproximately how many cigarettes per day: 0 - Social History Usual Living Arrangement: Intermediate Home Medications - Allergies Allergies/Adverse Reactions: Allergies Allergy/AdvReac Type Severity Reaction Status Date / Time No Known Allergies Allergy Verified 10/09/16 16:09 - Home Medications Home Medications: Ambulatory Orders Acetaminophen [Tylenol] 650 mg PO PRN PRN 10/09/16 Ascorbate Calcium [Vitamin C] 500 mg PO DAILY 10/09/16 Carvedilol [Coreg -] 3.125 mg PO BID 10/09/16 Docusate Liquid [Colace Liquid -] 100 mg PO BID 10/09/16 Doxazosin Mesylate [Cardura -] 1 mg PO HS 10/09/16 Duloxetine HCl [Cymbalta] 20 mg PO DAILY 10/09/16 Folic Acid 1 mg PO DAILY 10/09/16 Hypromellose 0.5% Opth Soln [Artificial Tears] 1 drop BID 10/09/16 Mirtazapine [Remeron -] 30 mg PO DAILY 10/09/16 Multivit with Iron-Minerals [Compete] 1 each PO DAILY 10/09/16 Na Phos,M-B/Na Phos,Di-Ba [Fleet Enema] 133 ml RC ASDIR 10/09/16 Polyethylene Glycol 3350 [Miralax (For Daily Use) -] 17 gm PO DAILY 10/09/16 Sodium Bicarbonate - 1,300 mg PO TID 10/09/16 Family Disease History - Family Disease History Family History: Unable to Obtain Review of Systems Findings/Remarks: pt does not know why he is here - Review of Systems Constitutional: reports: No Symptoms Eyes: reports: No Symptoms HENT: reports: No Symptoms Neck: reports: No Symptoms Cardiovascular: reports: No Symptoms Respiratory: reports: No Symptoms Gastrointestinal: reports: No Symptoms Genitourinary: reports: No Symptoms Musculoskeletal: reports: No Symptoms Integumentary: reports: No Symptoms Neurological: reports: No Symptoms Endocrine: reports: No Symptoms Hematology/Lymphatic: reports: No Symptoms Psychiatric: reports: No Symptoms Physical Exam Vital Signs: Vital Signs Temperature 97.8 F 10/10/16 06:48 Pulse Rate 93 H 10/10/16 06:48 Respiratory Rate 18 10/10/16 06:48 Blood Pressure 132/78 10/10/16 06:48 O2 Sat by Pulse Oximetry (%) 98 10/10/16 08:37 Constitutional: Yes: Calm Eyes: Yes: Conjunctiva Clear HENT: Yes: Atraumatic Cardiovascular: Yes: S1, S2 Respiratory: Yes: CTA Bilaterally Gastrointestinal: Yes: Soft Renal/: Yes: Singh Present Musculoskeletal: Yes: Muscle Weakness Edema: No Neurological: Yes: Pre-Existing Deficit Labs: CBC, BMP 10/10/16 07:00 Laboratory Tests 09/09/16 10/09/16 10/09/16 08:02 16:26 16:26 WBC RBC 2.28 L Hgb 6.7 L* D RDW Plt Count 170 Sodium 137 Potassium 3.8 Chloride 97 L D Carbon Dioxide 25 D Anion Gap 15 BUN 46 H D Creatinine 3.1 H D Urine pH Ur Specific Kathryn Urine Protein Urine Glucose (UA) Urine Ketones Urine Blood Free [place] LC, Quant 2140.00 H Free Lambda LC, Quant 16.06 Free [place]/Lambda Ratio 133.25 H 10/09/16 10/10/16 18:20 07:00 WBC 5.7 RBC Hgb 8.9 L D RDW 15.3 Plt Count Sodium Potassium Chloride Carbon Dioxide Anion Gap BUN Creatinine Urine pH 8.5 H D Ur Specific Kathryn 1.015 Urine Protein 3+ H Urine Glucose (UA) Negative Urine Ketones Negative Urine Blood 3+ H Free [place] LC, Quant Free Lambda LC, Quant Free [place]/Lambda Ratio Laboratory Tests 09/08/16 09/11/16 06:00 Unknown AIDEN Screen Negative Hep A IgM Ab Confirm Negative Hep Bs Antigen Negative Hep Bs Antibody Non reactive Hep B Core Total Ab Negative Hepatitis C Antibody <0.1 Imaging - Results Chest X-ray: Report Reviewed Problem List - Problems (1) Acute renal failure Code(s): N17.9 - ACUTE KIDNEY FAILURE, UNSPECIFIED Qualifiers: Acute renal failure type: unspecified Qualified Code(s): N17.9 - Acute kidney failure, unspecified (2) Anemia Code(s): D64.9 - ANEMIA, UNSPECIFIED Qualifiers: Anemia type: unspecified type Qualified Code(s): D64.9 - Anemia, unspecified (3) CHF (congestive heart failure) Code(s): I50.9 - HEART FAILURE, UNSPECIFIED (4) Dementia Code(s): F03.90 - UNSPECIFIED DEMENTIA WITHOUT BEHAVIORAL DISTURBANCE (5) Diabetes mellitus Code(s): E11.9 - TYPE 2 DIABETES MELLITUS WITHOUT COMPLICATIONS (6) HTN (hypertension) Code(s): I10 - ESSENTIAL (PRIMARY) HYPERTENSION (7) Neurogenic urinary bladder disorder Code(s): N31.9 - NEUROMUSCULAR DYSFUNCTION OF BLADDER, UNSPECIFIED Assessment/Plan Current Medications Generic Name Dose Route Start Last Admin Trade Name Freq PRN Reason Stop Dose Admin Acetaminophen 650 mg 10/09/16 19:25 Tylenol - PO Q6H PRN FEVER OR PAIN Carvedilol 3.125 mg 10/09/16 22:00 10/09/16 22:32 Coreg - PO 3.125 mg BID LINDA Administration Doxazosin Mesylate 1 mg 10/09/16 22:00 10/09/16 22:33 Cardura - PO 1 mg HS LINDA Administration Duloxetine HCl 20 mg 10/10/16 10:00 Cymbalta - PO DAILY LINDA Mirtazapine 30 mg 10/09/16 22:00 10/09/16 22:33 Remeron - PO 30 mg HS LINDA Administration Impression 1. PANCHO 2. hypercalcemia 3. HTN 4. hx CVA 5. CAD 6. CHF 7. Chol 8. DM 9. anemia 10. possible myeloma Plan - called and discussed care with pts daughter, Aster. She does not want any myeloma workup - follow up bmp - anemia, hypercalcemia and PANCHO likely in part from myeloma - pt received 2 units PRBC and hg is improved - will start gentle hydration - monitor urine output Dr Silva
[2016-10-10 09:19] LABS: SGPT/ALT < 9 U/L (10-40); TOT PROT 10.9 g/dl (6.4-8.3)
--- NOTE | 2016-10-10 09:23 | PN ---
Progress Note (short form) - Note Progress Note: Laboratory Tests 10/10/16 07:00 Sodium 138 Potassium 3.8 Chloride 100 Carbon Dioxide 23 Anion Gap 15 BUN 44 H Creatinine 2.7 H Calcium 10.3 H Renal addendum - renal function is improving Problem List - Problems (1) Acute renal failure Code(s): N17.9 - ACUTE KIDNEY FAILURE, UNSPECIFIED Qualifiers: Acute renal failure type: unspecified Qualified Code(s): N17.9 - Acute kidney failure, unspecified (2) Anemia Code(s): D64.9 - ANEMIA, UNSPECIFIED Qualifiers: Anemia type: unspecified type Qualified Code(s): D64.9 - Anemia, unspecified (3) CHF (congestive heart failure) Code(s): I50.9 - HEART FAILURE, UNSPECIFIED (4) Dementia Code(s): F03.90 - UNSPECIFIED DEMENTIA WITHOUT BEHAVIORAL DISTURBANCE (5) Diabetes mellitus Code(s): E11.9 - TYPE 2 DIABETES MELLITUS WITHOUT COMPLICATIONS (6) HTN (hypertension) Code(s): I10 - ESSENTIAL (PRIMARY) HYPERTENSION (7) Neurogenic urinary bladder disorder Code(s): N31.9 - NEUROMUSCULAR DYSFUNCTION OF BLADDER, UNSPECIFIED
[2016-10-10] MEDS ORDERED: SODIUM CHLORIDE 1,000 ML IV SCH ×2 (09:30)
[2016-10-10] MEDS: DULoxetine HCL 20 MG CAPSULE.DR (FP) PO SCH (09:52)
[2016-10-10] MEDS: CARVEDILOL 3.125 MG TABLET (FP) PO SCH ×2 (09:52→22:07)
[2016-10-10] MEDS: ACETAMINOPHEN 325 MG TABLET (FP) PO PRN ×2 (09:53→18:02)
--- NOTE | 2016-10-10 10:11 | EKG ---
Test Reason : Blood Pressure : / mmHG Vent. Rate : 098 BPM Atrial Rate : 098 BPM P-R Int : 162 ms QRS Dur : 170 ms QT Int : 416 ms P-R-T Axes : 015 -59 103 degrees QTc Int : 531 ms Atrial-sensed ventricular-paced rhythm ABNORMAL ECG WHEN COMPARED WITH ECG OF 06-SEP-2016 23:48, VENT. RATE HAS DECREASED BY 4 BPM Confirmed by ADAM TRAYLOR MD ([id number]) on 10/10/2016 10:11:37 AM Referred By: MD SCANLON Confirmed By:ADAM TRAYLOR MD
[2016-10-10] MEDS ORDERED: CEFTRIAXONE 50 ML IVPB SCH (11:45)
--- NOTE | 2016-10-10 13:28 | PN ---
Progress Note, Physician - Current Medication List Current Medications: Active Medications Acetaminophen (Tylenol -) 650 mg PO Q6H PRN PRN Reason: FEVER OR PAIN Last Admin: 10/10/16 09:53 Dose: 650 mg Carvedilol (Coreg -) 3.125 mg PO BID [facility] Last Admin: 10/10/16 09:52 Dose: 3.125 mg Doxazosin Mesylate (Cardura -) 1 mg PO HS [facility] Last Admin: 10/09/16 22:33 Dose: 1 mg Duloxetine HCl (Cymbalta -) 20 mg PO DAILY [facility] Last Admin: 10/10/16 09:52 Dose: 20 mg Sodium Chloride (Normal Saline -) 1,000 mls @ 40 mls/hr IV ASDIR [facility] Stop: 10/10/16 21:29 Last Admin: 10/10/16 09:52 Dose: 40 mls/hr Ceftriaxone Sodium (Rocephin 1gm Ivpb (Pre-Docked)) 50 mls @ 100 mls/hr IVPB DAILY [facility] Stop: 10/10/16 13:44 Last Admin: 10/10/16 12:06 Dose: 100 mls/hr Mirtazapine (Remeron -) 30 mg PO [facility] Last Admin: 10/09/16 22:33 Dose: 30 mg - Objective Vital Signs: Vital Signs Temperature 97.8 F 10/10/16 06:48 Pulse Rate 93 H 10/10/16 06:48 Respiratory Rate 18 10/10/16 06:48 Blood Pressure 132/78 10/10/16 06:48 O2 Sat by Pulse Oximetry (%) 98 10/10/16 08:37 Constitutional: Yes: No Distress HENT: Yes: Atraumatic Neck: Yes: Supple Cardiovascular: Yes: Regular Rate and Rhythm Respiratory: Yes: CTA Bilaterally Gastrointestinal: Yes: Normal Bowel Sounds Extremities: Yes: WNL Neurological: Yes: Alert, Oriented Labs: CBC, BMP 10/10/16 07:00 10/10/16 07:00 INR, PTT INR 1.29 (0.82-1.09) H 10/09/16 16:26 Problem List - Problems (1) Anemia Code(s): D64.9 - ANEMIA, UNSPECIFIED Qualifiers: Anemia type: unspecified type Qualified Code(s): D64.9 - Anemia, unspecified (2) CHF (congestive heart failure) Code(s): I50.9 - HEART FAILURE, UNSPECIFIED (3) Dementia Code(s): F03.90 - UNSPECIFIED DEMENTIA WITHOUT BEHAVIORAL DISTURBANCE (4) Diabetes mellitus Code(s): E11.9 - TYPE 2 DIABETES MELLITUS WITHOUT COMPLICATIONS (5) HTN (hypertension) Code(s): I10 - ESSENTIAL (PRIMARY) HYPERTENSION (6) Neurogenic urinary bladder disorder Code(s): N31.9 - NEUROMUSCULAR DYSFUNCTION OF BLADDER, UNSPECIFIED Assessment/Plan 1.anemia [place] was [place] h/h will transfuse 2 u prbc 2.ckd elevated bun /cr could be dehydration reluctant to start fluids as h/o chf and getting 2 u blood 3.myelome noted last admission family wanted palliative treatment 4.uti iv abx
[2016-10-10] MEDS: ONDANSETRON 4 MG/2 ML VIAL IVPB PRN (20:10)
[2016-10-10] MEDS ORDERED: PT OWN MED DRAWER 7, Y5N ONE (22:03)
[2016-10-10] MEDS ORDERED: MIRTAZAPINE 15 MG TABLET (FP) ONE (22:03)
[2016-10-10] MEDS: MIRTAZAPINE 30 MG TABLET (FP) PO SCH (22:07)
[2016-10-10] MEDS: DOXAZOSIN MESYLATE 1 MG TABLET PO SCH (22:09)
[2016-10-11] MEDS: ACETAMINOPHEN 325 MG TABLET (FP) PO PRN ×2 (00:52→10:00)
[2016-10-11] MEDS ORDERED: PT OWN MED DRAWER 7, Y5N ONE ×2 (09:19→22:08)
--- NOTE | 2016-10-11 09:34 | PN ---
Progress Note (short form) - Note Progress Note: ID Consult dictated 70 y/o male admitted from [facility] with anemia U/A many WBC Urine c/s NLF Hx E coli urosepsis 09/03. Pending c/s, continue empiric ceftriaxone
[2016-10-11] MEDS ORDERED: CEFTRIAXONE 1 GM in DEXTROSE 5%-WATER - 100 ML IVPB SCH (10:00)
[2016-10-11] MEDS: CARVEDILOL 3.125 MG TABLET (FP) PO SCH ×2 (10:20→22:09)
[2016-10-11] MEDS: DULoxetine HCL 20 MG CAPSULE.DR (FP) PO SCH (10:20)
[2016-10-11] MEDS: cefTRIAXone 1 GM/50 ML BAG (PRE-DOCKED) IVPB SCH (11:23)
--- NOTE | 2016-10-11 12:57 | PN ---
Progress Note, Physician History of Present Illness: Pt seen and examined at bedside. He appears comfortable. - Current Medication List Current Medications: Active Medications Acetaminophen (Tylenol -) 650 mg PO Q6H PRN PRN Reason: FEVER OR PAIN Last Admin: 10/11/16 10:00 Dose: 650 mg Carvedilol (Coreg -) 3.125 mg PO BID [facility] Last Admin: 10/11/16 10:20 Dose: 3.125 mg Ceftriaxone Sodium (Rocephin 1gm Ivpb (Pre-Docked)) 1 gm IVPB DAILY [facility] Last Admin: 10/11/16 11:23 Dose: 1 gm Doxazosin Mesylate (Cardura -) 1 mg PO HS [facility] Last Admin: 10/10/16 22:09 Dose: 1 mg Duloxetine HCl (Cymbalta -) 20 mg PO DAILY [facility] Last Admin: 10/11/16 10:20 Dose: 20 mg Mirtazapine (Remeron -) 30 mg PO HS [facility] Last Admin: 10/10/16 22:07 Dose: 30 mg Ondansetron HCl (Zofran Injection) 4 mg IVPB Q4H PRN PRN Reason: NAUSEA AND/OR VOMITING Last Admin: 10/10/16 20:10 Dose: 4 mg - Objective Vital Signs: Vital Signs Temperature 98.1 F 10/11/16 07:09 Pulse Rate 85 10/11/16 07:09 Respiratory Rate 19 10/11/16 07:09 Blood Pressure 131/80 10/11/16 07:09 O2 Sat by Pulse Oximetry (%) 97 10/11/16 09:24 Constitutional: Yes: Calm Eyes: Yes: Conjunctiva Clear HENT: Yes: Atraumatic Neck: Yes: Supple Cardiovascular: Yes: S1, S2 Respiratory: Yes: CTA Bilaterally Gastrointestinal: Yes: Soft Genitourinary: Yes: Singh Present Musculoskeletal: Yes: Muscle Weakness Edema: No Neurological: Yes: Pre-Existing Deficit Labs: CBC, BMP 10/10/16 07:00 10/10/16 07:00 INR, PTT INR 1.29 (0.82-1.09) H 10/09/16 16:26 Problem List - Problems (1) Acute renal failure Code(s): N17.9 - ACUTE KIDNEY FAILURE, UNSPECIFIED Qualifiers: Acute renal failure type: unspecified Qualified Code(s): N17.9 - Acute kidney failure, unspecified (2) Anemia Code(s): D64.9 - ANEMIA, UNSPECIFIED Qualifiers: Anemia type: unspecified type Qualified Code(s): D64.9 - Anemia, unspecified (3) CHF (congestive heart failure) Code(s): I50.9 - HEART FAILURE, UNSPECIFIED (4) Dementia Code(s): F03.90 - UNSPECIFIED DEMENTIA WITHOUT BEHAVIORAL DISTURBANCE (5) Diabetes mellitus Code(s): E11.9 - TYPE 2 DIABETES MELLITUS WITHOUT COMPLICATIONS (6) HTN (hypertension) Code(s): I10 - ESSENTIAL (PRIMARY) HYPERTENSION (7) Neurogenic urinary bladder disorder Code(s): N31.9 - NEUROMUSCULAR DYSFUNCTION OF BLADDER, UNSPECIFIED Assessment/Plan Current Medications Generic Name Dose Route Start Last Admin Trade Name Freq PRN Reason Stop Dose Admin Acetaminophen 650 mg 10/09/16 19:25 10/11/16 10:00 Tylenol - PO 650 mg Q6H PRN Administration FEVER OR PAIN Carvedilol 3.125 mg 10/09/16 22:00 10/11/16 10:20 Coreg - PO 3.125 mg BID LINDA Administration Ceftriaxone Sodium 1 gm 10/11/16 11:00 10/11/16 11:23 Rocephin 1gm Ivpb (Pre-Docked) IVPB 1 gm DAILY LINDA Administration Doxazosin Mesylate 1 mg 10/09/16 22:00 10/10/16 22:09 Cardura - PO 1 mg HS LINDA Administration Duloxetine HCl 20 mg 10/10/16 10:00 10/11/16 10:20 Cymbalta - PO 20 mg DAILY LINDA Administration Mirtazapine 30 mg 10/09/16 22:00 10/10/16 22:07 Remeron - PO 30 mg HS LINDA Administration Ondansetron HCl 4 mg 10/10/16 19:44 10/10/16 20:10 Zofran Injection IVPB 4 mg Q4H PRN Administration NAUSEA AND/OR VOMITING Impression 1. PANCHO 2. hypercalcemia 3. HTN 4. hx CVA 5. CAD 6. CHF 7. Chol 8. DM 9. anemia 10. possible myeloma 11. UTI Plan - check bmp - follow urine cultures - abx per ID - will restart gentle hydration - called and discussed care with pts daughter, Aster, yesterday. She does not want any myeloma workup - anemia, hypercalcemia and PANCHO likely in part from myeloma - monitor urine output Dr Silva
--- NOTE | 2016-10-11 15:21 | PN ---
Progress Note, Physician - Current Medication List Current Medications: Active Medications Acetaminophen (Tylenol -) 650 mg PO Q6H PRN PRN Reason: FEVER OR PAIN Last Admin: 10/11/16 10:00 Dose: 650 mg Carvedilol (Coreg -) 3.125 mg PO BID [facility] Last Admin: 10/11/16 10:20 Dose: 3.125 mg Ceftriaxone Sodium (Rocephin 1gm Ivpb (Pre-Docked)) 1 gm IVPB DAILY [facility] Last Admin: 10/11/16 11:23 Dose: 1 gm Doxazosin Mesylate (Cardura -) 1 mg PO HS [facility] Last Admin: 10/10/16 22:09 Dose: 1 mg Duloxetine HCl (Cymbalta -) 20 mg PO DAILY [facility] Last Admin: 10/11/16 10:20 Dose: 20 mg Mirtazapine (Remeron -) 30 mg PO HS [facility] Last Admin: 10/10/16 22:07 Dose: 30 mg Ondansetron HCl (Zofran Injection) 4 mg IVPB Q4H PRN PRN Reason: NAUSEA AND/OR VOMITING Last Admin: 10/10/16 20:10 Dose: 4 mg - Objective Vital Signs: Vital Signs Temperature 98.4 F 10/11/16 14:08 Pulse Rate 86 10/11/16 14:08 Respiratory Rate 20 10/11/16 14:08 Blood Pressure 130/78 10/11/16 14:08 O2 Sat by Pulse Oximetry (%) 97 10/11/16 09:24 Constitutional: Yes: Calm HENT: Yes: Atraumatic Neck: Yes: Supple Cardiovascular: Yes: Regular Rate and Rhythm Respiratory: Yes: CTA Bilaterally Gastrointestinal: Yes: Normal Bowel Sounds Extremities: Yes: Other (contractures) Neurological: Yes: Alert Labs: CBC, BMP 10/10/16 07:00 10/10/16 07:00 INR, PTT INR 1.29 (0.82-1.09) H 10/09/16 16:26 Problem List - Problems (1) Anemia Code(s): D64.9 - ANEMIA, UNSPECIFIED Qualifiers: Anemia type: unspecified type Qualified Code(s): D64.9 - Anemia, unspecified (2) CHF (congestive heart failure) Code(s): I50.9 - HEART FAILURE, UNSPECIFIED (3) Dementia Code(s): F03.90 - UNSPECIFIED DEMENTIA WITHOUT BEHAVIORAL DISTURBANCE (4) Diabetes mellitus Code(s): E11.9 - TYPE 2 DIABETES MELLITUS WITHOUT COMPLICATIONS (5) HTN (hypertension) Code(s): I10 - ESSENTIAL (PRIMARY) HYPERTENSION (6) Neurogenic urinary bladder disorder Code(s): N31.9 - NEUROMUSCULAR DYSFUNCTION OF BLADDER, UNSPECIFIED (7) Myeloma Code(s): C90.00 - MULTIPLE MYELOMA NOT HAVING ACHIEVED REMISSION Assessment/Plan 1.anemia h/h stable 2.ckd mild hydration improving 3.myelome noted last admission family wanted palliative treatment 4.uti iv abx cxs noted
[2016-10-11 16:50] LABS: CALCIUM 10.4 mg/dl (8.4-10.2); CREATININE 2.6 mg/dl (0.6-1.3)
--- NOTE | 2016-10-11 19:09 | CONS ---
DATE OF CONSULTATION: DATE OF DICTATION: 10/11/2016 The patient is a 70-year-old male who was evaluated for urinary tract infection, possible urosepsis. The patient was recently admitted to [facility] from September 06 through September 16 with anemia. At this time, his course was complicated by acute renal failure and Escherichia coli urosepsis. [facility] is now [facility] with reports of anemia. The patient was found to have a hemoglobin of 6.7. Upon initial evaluation, urinalysis showed many white cells. 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 On his previous hospital admission, he had positive blood cultures for E coli and received a course of IV antibiotic therapy. He is awake, however, he suffers from dementia and cannot give any meaningful history. No reports of high-grade fever, shaking chills, labored breathing, vomiting, diarrhea, or grossly purulent urine. PAST MEDICAL HISTORY: Positive for dementia, neurogenic bladder, coronary artery disease, congestive heart failure, hypertension, hyperlipidemia, diabetes mellitus. Recent diagnosis of myeloma. PAST SURGICAL HISTORY: Status post permanent pacemaker. ALLERGIES: No known allergies. MEDICATIONS: Include Zofran, Cardura, Tylenol, ceftriaxone, Cymbalta, Remeron, Coreg. SOCIAL HISTORY: alf resident, dependent in activities of daily living, no active tobacco or alcohol use. SYSTEMS REVIEW: Neurologic: Positive for dementia. Cardiac: Negative for chest pain or palpitations. Respiratory: Negative for cough or sputum production. Gastrointestinal: Negative for vomiting or diarrhea. Genitourinary: Positive for recurrent urinary tract infection and renal insufficiency. LABORATORY DATA: White count 5.7, hematocrit 25.1, platelet count 166, BUN 44, creatinine 2.7. Urinalysis many white cells. 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 PHYSICAL EXAMINATION: General: He is awake , but confused. He is in no acute respiratory distress. Vital Signs: Temperature 98.1, blood pressure 131/80, pulse 85 and regular, respirations 19 per minute. HEENT: Sclerae anicteric. Heart: Sounds S1, S2. Lungs: Clear bilaterally. No rhonchi, rales or wheezing. Abdomen: Soft. No tenderness associated. No suprapubic or flank tenderness. Extremities: Negative for edema, positive contractures of the upper extremities. IMPRESSION: 1. Recurrent urinary tract infection. 2. History of neurogenic bladder. 3. Renal insufficiency. 4. History of recent Escherichia coli bacteremia. Pending culture results, empiric antibiotic coverage with ceftriaxone 1 g IV piggyback daily. We will obtain blood cultures x2. Further recommendations pending culture results. We will follow. Thank you for the kind referral. ELIECER KUNZ M.D. [id number]
[2016-10-11] MEDS ORDERED: MIRTAZAPINE 15 MG TABLET (FP) ONE (22:07)
[2016-10-11] MEDS: DOXAZOSIN MESYLATE 1 MG TABLET PO SCH (22:09)
[2016-10-11] MEDS: MIRTAZAPINE 30 MG TABLET (FP) PO SCH (22:09)
[2016-10-12 08:54] LABS: BASOPHIL 0.8 % (0-2.0); CALCIUM 10.4 mg/dl (8.4-10.2); CREATININE 2.6 mg/dl (0.6-1.3); EOSINOPHIL 1.1 % (0-4.5); MCH 30.2 pg (25.7-33.7); MCHC 33.7 g/dl (32.0-35.9); MEAN CELL VOLUME 89.5 fl (80-96); MEAN PLT VOLUME 6.1 fl (7.5-11.1); NEUTROPHILS 60.1 % (42.8-82.8); PLATELET COUNT 156 K/MM3 (134-434); RDW 15.3 % (11.9-15.9); WHITE BLOOD COUNT 5.4 K/mm3 (4.0-10.0)
[2016-10-12] MEDS ORDERED: PT OWN MED DRAWER 7, Y5N ONE ×2 (10:16→21:24)
[2016-10-12] MEDS: CARVEDILOL 3.125 MG TABLET (FP) PO SCH ×2 (10:20→22:15)
[2016-10-12] MEDS: cefTRIAXone 1 GM/50 ML BAG (PRE-DOCKED) IVPB SCH (10:20)
[2016-10-12] MEDS: DULoxetine HCL 20 MG CAPSULE.DR (FP) PO SCH (10:20)
--- NOTE | 2016-10-12 16:38 | PN ---
Progress Note, Physician History of Present Illness: Pt seen and examined at bedside. He is awake and appears comfortable. - Current Medication List Current Medications: Active Medications Acetaminophen (Tylenol -) 650 mg PO Q6H PRN PRN Reason: FEVER OR PAIN Last Admin: 10/11/16 10:00 Dose: 650 mg Carvedilol (Coreg -) 3.125 mg PO BID [facility] Last Admin: 10/12/16 10:20 Dose: 3.125 mg Ceftriaxone Sodium (Rocephin 1gm Ivpb (Pre-Docked)) 1 gm IVPB DAILY [facility] Last Admin: 10/12/16 10:20 Dose: 1 gm Doxazosin Mesylate (Cardura -) 1 mg PO HS [facility] Last Admin: 10/11/16 22:09 Dose: 1 mg Duloxetine HCl (Cymbalta -) 20 mg PO DAILY [facility] Last Admin: 10/12/16 10:20 Dose: 20 mg Mirtazapine (Remeron -) 30 mg PO HS [facility] Last Admin: 10/11/16 22:09 Dose: 30 mg Ondansetron HCl (Zofran Injection) 4 mg IVPB Q4H PRN PRN Reason: NAUSEA AND/OR VOMITING Last Admin: 10/10/16 20:10 Dose: 4 mg - Objective Vital Signs: Vital Signs Temperature 98.1 F 10/12/16 14:35 Pulse Rate 85 10/12/16 14:35 Respiratory Rate 18 10/12/16 14:35 Blood Pressure 132/82 10/12/16 14:35 O2 Sat by Pulse Oximetry (%) 100 10/12/16 14:35 Constitutional: Yes: Calm Eyes: Yes: Conjunctiva Clear HENT: Yes: Atraumatic Cardiovascular: Yes: S1, S2 Respiratory: Yes: CTA Bilaterally, On Nasal O2 Gastrointestinal: Yes: Soft Genitourinary: Yes: WNL Musculoskeletal: Yes: Muscle Weakness Edema: No Neurological: Yes: Pre-Existing Deficit Labs: CBC, BMP 10/12/16 08:10 10/12/16 08:10 INR, PTT INR 1.29 (0.82-1.09) H 10/09/16 16:26 Problem List - Problems (1) Acute renal failure Code(s): N17.9 - ACUTE KIDNEY FAILURE, UNSPECIFIED Qualifiers: Acute renal failure type: unspecified Qualified Code(s): N17.9 - Acute kidney failure, unspecified (2) Anemia Code(s): D64.9 - ANEMIA, UNSPECIFIED Qualifiers: Anemia type: unspecified type Qualified Code(s): D64.9 - Anemia, unspecified (3) CHF (congestive heart failure) Code(s): I50.9 - HEART FAILURE, UNSPECIFIED (4) Dementia Code(s): F03.90 - UNSPECIFIED DEMENTIA WITHOUT BEHAVIORAL DISTURBANCE (5) Diabetes mellitus Code(s): E11.9 - TYPE 2 DIABETES MELLITUS WITHOUT COMPLICATIONS (6) HTN (hypertension) Code(s): I10 - ESSENTIAL (PRIMARY) HYPERTENSION (7) Neurogenic urinary bladder disorder Code(s): N31.9 - NEUROMUSCULAR DYSFUNCTION OF BLADDER, UNSPECIFIED Assessment/Plan Current Medications Generic Name Dose Route Start Last Admin Trade Name Freq PRN Reason Stop Dose Admin Acetaminophen 650 mg 10/09/16 19:25 10/11/16 10:00 Tylenol - PO 650 mg Q6H PRN Administration FEVER OR PAIN Carvedilol 3.125 mg 10/09/16 22:00 10/12/16 10:20 Coreg - PO 3.125 mg BID [facility] Administration Ceftriaxone Sodium 1 gm 10/11/16 11:00 10/12/16 10:20 Rocephin 1gm Ivpb (Pre-Docked) IVPB 1 gm DAILY [facility] Administration Doxazosin Mesylate 1 mg 10/09/16 22:00 10/11/16 22:09 Cardura - PO 1 mg HS [facility] Administration Duloxetine HCl 20 mg 10/10/16 10:00 10/12/16 10:20 Cymbalta - PO 20 mg DAILY [facility] Administration Mirtazapine 30 mg 10/09/16 22:00 10/11/16 22:09 Remeron - PO 30 mg HS [facility] Administration Ondansetron HCl 4 mg 10/10/16 19:44 10/10/16 20:10 Zofran Injection IVPB 4 mg Q4H PRN Administration NAUSEA AND/OR VOMITING Impression 1. PANCHO 2. hypercalcemia 3. HTN 4. hx CVA 5. CAD 6. CHF 7. Chol 8. DM 9. anemia 10. possible myeloma 11. UTI Plan - will stop fluids as he was hypoxic and needed oxygen - monitor pulse ox - pt appears comfortable - family do not want aggressive measures - abx for UTI - anemia, hypercalcemia and PANCHO likely in part from myeloma - monitor urine output Dr Silva
--- NOTE | 2016-10-12 17:22 | PN ---
Progress Note, Physician - Current Medication List Current Medications: Active Medications Acetaminophen (Tylenol -) 650 mg PO Q6H PRN PRN Reason: FEVER OR PAIN Last Admin: 10/11/16 10:00 Dose: 650 mg Carvedilol (Coreg -) 3.125 mg PO BID [facility] Last Admin: 10/12/16 10:20 Dose: 3.125 mg Ceftriaxone Sodium (Rocephin 1gm Ivpb (Pre-Docked)) 1 gm IVPB DAILY [facility] Last Admin: 10/12/16 10:20 Dose: 1 gm Doxazosin Mesylate (Cardura -) 1 mg PO HS [facility] Last Admin: 10/11/16 22:09 Dose: 1 mg Duloxetine HCl (Cymbalta -) 20 mg PO DAILY [facility] Last Admin: 10/12/16 10:20 Dose: 20 mg Mirtazapine (Remeron -) 30 mg PO HS [facility] Last Admin: 10/11/16 22:09 Dose: 30 mg Ondansetron HCl (Zofran Injection) 4 mg IVPB Q4H PRN PRN Reason: NAUSEA AND/OR VOMITING Last Admin: 10/10/16 20:10 Dose: 4 mg - Objective Vital Signs: Vital Signs Temperature 98.1 F 10/12/16 14:35 Pulse Rate 85 10/12/16 14:35 Respiratory Rate 18 10/12/16 14:35 Blood Pressure 132/82 10/12/16 14:35 O2 Sat by Pulse Oximetry (%) 100 10/12/16 14:35 Constitutional: Yes: No Distress HENT: Yes: Atraumatic Neck: Yes: Supple Cardiovascular: Yes: Regular Rate and Rhythm Respiratory: Yes: CTA Bilaterally Gastrointestinal: Yes: Normal Bowel Sounds Edema: No Neurological: Yes: Alert Labs: CBC, BMP 10/12/16 08:10 10/12/16 08:10 INR, PTT INR 1.29 (0.82-1.09) H 10/09/16 16:26 Problem List - Problems (1) Anemia Code(s): D64.9 - ANEMIA, UNSPECIFIED Qualifiers: Anemia type: unspecified type Qualified Code(s): D64.9 - Anemia, unspecified (2) CHF (congestive heart failure) Code(s): I50.9 - HEART FAILURE, UNSPECIFIED (3) Dementia Code(s): F03.90 - UNSPECIFIED DEMENTIA WITHOUT BEHAVIORAL DISTURBANCE (4) Diabetes mellitus Code(s): E11.9 - TYPE 2 DIABETES MELLITUS WITHOUT COMPLICATIONS (5) HTN (hypertension) Code(s): I10 - ESSENTIAL (PRIMARY) HYPERTENSION (6) Neurogenic urinary bladder disorder Code(s): N31.9 - NEUROMUSCULAR DYSFUNCTION OF BLADDER, UNSPECIFIED (7) Myeloma Code(s): C90.00 - MULTIPLE MYELOMA NOT HAVING ACHIEVED REMISSION Assessment/Plan 1.anemia h/h stable 2.ckd mild hydration improving 3.myelome noted last admission family wanted palliative treatment 4.uti iv abx cxs noted
[2016-10-12] MEDS ORDERED: LEVOFLOXACIN 500 MG IVPB 100 ML IVPB SCH (17:30)
[2016-10-12] MEDS ORDERED: LEVOFLOXACIN 500 MG IVPB 100 ML IVPB ONE (18:45)
[2016-10-12] MEDS: ONDANSETRON 4 MG/2 ML VIAL IVPB PRN (20:09)
[2016-10-12] MEDS ORDERED: MIRTAZAPINE 15 MG TABLET (FP) ONE (21:23)
[2016-10-12] MEDS: MIRTAZAPINE 30 MG TABLET (FP) PO SCH (22:15)
[2016-10-12] MEDS: DOXAZOSIN MESYLATE 1 MG TABLET PO SCH (22:15)
[2016-10-13] MEDS ORDERED: PT OWN MED DRAWER 7, Y5N ONE ×2 (08:31→21:04)
[2016-10-13] MEDS: DULoxetine HCL 20 MG CAPSULE.DR (FP) PO SCH (09:32)
[2016-10-13] MEDS: CARVEDILOL 3.125 MG TABLET (FP) PO SCH ×2 (09:32→21:37)
[2016-10-13] MEDS ORDERED: LEVOFLOXACIN 250 MG IVPB 50 ML IVPB SCH (10:00)
[2016-10-13] MEDS: LEVOFLOXACIN 250 MG IVPB 50 ML IVPB SCH (11:24)
--- NOTE | 2016-10-13 13:07 | PN ---
Progress Note, Physician - Current Medication List Current Medications: Active Medications Acetaminophen (Tylenol -) 650 mg PO Q6H PRN PRN Reason: FEVER OR PAIN Last Admin: 10/11/16 10:00 Dose: 650 mg Carvedilol (Coreg -) 3.125 mg PO BID [facility] Last Admin: 10/13/16 09:32 Dose: 3.125 mg Doxazosin Mesylate (Cardura -) 1 mg PO HS [facility] Last Admin: 10/12/16 22:15 Dose: 1 mg Duloxetine HCl (Cymbalta -) 20 mg PO DAILY [facility] Last Admin: 10/13/16 09:32 Dose: 20 mg Levofloxacin (Levaquin 250 Mg Premixed Ivpb -) 50 mls @ 50 mls/hr IVPB DAILY [facility] Last Admin: 10/13/16 11:24 Dose: Not Given Mirtazapine (Remeron -) 30 mg PO HS [facility] Last Admin: 10/12/16 22:15 Dose: 30 mg Ondansetron HCl (Zofran Injection) 4 mg IVPB Q4H PRN PRN Reason: NAUSEA AND/OR VOMITING Last Admin: 10/12/16 20:09 Dose: 4 mg - Objective Vital Signs: Vital Signs Temperature 98.7 F 10/13/16 05:59 Pulse Rate 89 10/13/16 05:59 Respiratory Rate 18 10/13/16 09:00 Blood Pressure 128/80 10/13/16 05:59 O2 Sat by Pulse Oximetry (%) 100 10/13/16 09:00 Labs: CBC, BMP 10/12/16 08:10 10/12/16 08:10 INR, PTT INR 1.29 (0.82-1.09) H 10/09/16 16:26 Problem List - Problems (1) Anemia Code(s): D64.9 - ANEMIA, UNSPECIFIED Qualifiers: Anemia type: unspecified type Qualified Code(s): D64.9 - Anemia, unspecified (2) CHF (congestive heart failure) Code(s): I50.9 - HEART FAILURE, UNSPECIFIED (3) Dementia Code(s): F03.90 - UNSPECIFIED DEMENTIA WITHOUT BEHAVIORAL DISTURBANCE (4) Diabetes mellitus Code(s): E11.9 - TYPE 2 DIABETES MELLITUS WITHOUT COMPLICATIONS (5) HTN (hypertension) Code(s): I10 - ESSENTIAL (PRIMARY) HYPERTENSION (6) Neurogenic urinary bladder disorder Code(s): N31.9 - NEUROMUSCULAR DYSFUNCTION OF BLADDER, UNSPECIFIED (7) Myeloma Code(s): C90.00 - MULTIPLE MYELOMA NOT HAVING ACHIEVED REMISSION Assessment/Plan 1.anemia h/h stable 2.ckd mild hydration improving 3.myelome noted last admission family wanted palliative treatment 4.uti iv abx cxs noted
--- NOTE | 2016-10-13 18:29 | PN ---
Progress Note, Physician History of Present Illness: Pt seen and examined at bedside. He is awake and appears comfortable. His breathing is improved. - Current Medication List Current Medications: Active Medications Acetaminophen (Tylenol -) 650 mg PO Q6H PRN PRN Reason: FEVER OR PAIN Last Admin: 10/11/16 10:00 Dose: 650 mg Carvedilol (Coreg -) 3.125 mg PO BID [facility] Last Admin: 10/13/16 09:32 Dose: 3.125 mg Doxazosin Mesylate (Cardura -) 1 mg PO HS [facility] Last Admin: 10/12/16 22:15 Dose: 1 mg Duloxetine HCl (Cymbalta -) 20 mg PO DAILY [facility] Last Admin: 10/13/16 09:32 Dose: 20 mg Levofloxacin (Levaquin 250 Mg Premixed Ivpb -) 50 mls @ 50 mls/hr IVPB DAILY [facility] Last Admin: 10/13/16 11:24 Dose: Not Given Mirtazapine (Remeron -) 30 mg PO [facility] Last Admin: 10/12/16 22:15 Dose: 30 mg Ondansetron HCl (Zofran Injection) 4 mg IVPB Q4H PRN PRN Reason: NAUSEA AND/OR VOMITING Last Admin: 10/12/16 20:09 Dose: 4 mg - Objective Vital Signs: Vital Signs Temperature 98.7 F 10/13/16 14:15 Pulse Rate 84 10/13/16 14:15 Respiratory Rate 18 10/13/16 14:15 Blood Pressure 131/84 10/13/16 14:15 O2 Sat by Pulse Oximetry (%) 100 10/13/16 14:15 Constitutional: Yes: Calm Eyes: Yes: Conjunctiva Clear HENT: Yes: Atraumatic Neck: Yes: Supple Cardiovascular: Yes: S1, S2 Respiratory: Yes: CTA Bilaterally Musculoskeletal: Yes: Muscle Weakness Edema: No Neurological: Yes: Pre-Existing Deficit Labs: CBC, BMP 10/12/16 08:10 10/12/16 08:10 INR, PTT INR 1.29 (0.82-1.09) H 10/09/16 16:26 Problem List - Problems (1) Acute renal failure Code(s): N17.9 - ACUTE KIDNEY FAILURE, UNSPECIFIED Qualifiers: Acute renal failure type: unspecified Qualified Code(s): N17.9 - Acute kidney failure, unspecified (2) Anemia Code(s): D64.9 - ANEMIA, UNSPECIFIED Qualifiers: Anemia type: unspecified type Qualified Code(s): D64.9 - Anemia, unspecified (3) CHF (congestive heart failure) Code(s): I50.9 - HEART FAILURE, UNSPECIFIED (4) Dementia Code(s): F03.90 - UNSPECIFIED DEMENTIA WITHOUT BEHAVIORAL DISTURBANCE (5) Diabetes mellitus Code(s): E11.9 - TYPE 2 DIABETES MELLITUS WITHOUT COMPLICATIONS (6) HTN (hypertension) Code(s): I10 - ESSENTIAL (PRIMARY) HYPERTENSION (7) Neurogenic urinary bladder disorder Code(s): N31.9 - NEUROMUSCULAR DYSFUNCTION OF BLADDER, UNSPECIFIED Assessment/Plan Current Medications Generic Name Dose Route Start Last Admin Trade Name Freq PRN Reason Stop Dose Admin Acetaminophen 650 mg 10/09/16 19:25 10/11/16 10:00 Tylenol - PO 650 mg Q6H PRN Administration FEVER OR PAIN Carvedilol 3.125 mg 10/09/16 22:00 10/13/16 09:32 Coreg - PO 3.125 mg BID [facility] Administration Doxazosin Mesylate 1 mg 10/09/16 22:00 10/12/16 22:15 Cardura - PO 1 mg HS [facility] Administration Duloxetine HCl 20 mg 10/10/16 10:00 10/13/16 09:32 Cymbalta - PO 20 mg DAILY [facility] Administration Levofloxacin 50 mls @ 50 mls/hr 10/13/16 11:15 10/13/16 11:24 Levaquin 250 Mg Premixed Ivpb - IVPB Not Given DAILY [facility] Mirtazapine 30 mg 10/09/16 22:00 10/12/16 22:15 Remeron - PO 30 mg HS [facility] Administration Ondansetron HCl 4 mg 10/10/16 19:44 10/12/16 20:09 Zofran Injection IVPB 4 mg Q4H PRN Administration NAUSEA AND/OR VOMITING Impression 1. PANCHO 2. hypercalcemia 3. HTN 4. hx CVA 5. CAD 6. CHF 7. Chol 8. DM 9. anemia 10. possible myeloma 11. UTI Plan - pulse ox 100 percent on room air - monitor off of fluids - no new labs - family want conservative treatment - pt appears comfortable - abx for UTI - anemia, hypercalcemia and PANCHO likely in part from myeloma - monitor urine output Dr Silva
[2016-10-13] MEDS ORDERED: MIRTAZAPINE 15 MG TABLET (FP) ONE (21:04)
[2016-10-13] MEDS: MIRTAZAPINE 30 MG TABLET (FP) PO SCH (21:37)
[2016-10-13] MEDS: DOXAZOSIN MESYLATE 1 MG TABLET PO SCH (21:37)
[2016-10-14 06:31] VITALS: BP 103/62; PULSE 87; TEMP 97.6
[2016-10-14] MEDS ORDERED: PT OWN MED DRAWER 7, Y5N ONE (10:15)
[2016-10-14] MEDS: LEVOFLOXACIN 250 MG IVPB 50 ML IVPB SCH (10:21)
[2016-10-14] MEDS: DULoxetine HCL 20 MG CAPSULE.DR (FP) PO SCH (10:21)
[2016-10-14] MEDS: CARVEDILOL 3.125 MG TABLET (FP) PO SCH (10:21)
--- NOTE | 2016-10-14 12:42 | PN ---
Progress Note, Physician History of Present Illness: Pt seen and examined at bedside. He is awake and appears comfortable. He is being discharged today. - Current Medication List Current Medications: Active Medications Acetaminophen (Tylenol -) 650 mg PO Q6H PRN PRN Reason: FEVER OR PAIN Last Admin: 10/11/16 10:00 Dose: 650 mg Carvedilol (Coreg -) 3.125 mg PO BID [facility] Last Admin: 10/14/16 10:21 Dose: 3.125 mg Doxazosin Mesylate (Cardura -) 1 mg PO HS [facility] Last Admin: 10/13/16 21:37 Dose: 1 mg Duloxetine HCl (Cymbalta -) 20 mg PO DAILY [facility] Last Admin: 10/14/16 10:21 Dose: 20 mg Levofloxacin (Levaquin 250 Mg Premixed Ivpb -) 50 mls @ 50 mls/hr IVPB DAILY [facility] Last Admin: 10/14/16 10:21 Dose: 50 mls/hr Mirtazapine (Remeron -) 30 mg PO [facility] Ondansetron HCl (Zofran Injection) 4 mg IVPB Q4H PRN PRN Reason: NAUSEA AND/OR VOMITING Last Admin: 10/12/16 20:09 Dose: 4 mg - Objective Vital Signs: Vital Signs Temperature 97.6 F 10/14/16 06:30 Pulse Rate 87 10/14/16 06:30 Respiratory Rate 18 10/14/16 09:00 Blood Pressure 103/62 10/14/16 06:30 O2 Sat by Pulse Oximetry (%) 99 10/14/16 09:00 Constitutional: Yes: Calm Eyes: Yes: Conjunctiva Clear HENT: Yes: Atraumatic Cardiovascular: Yes: S1, S2 Respiratory: Yes: CTA Bilaterally Gastrointestinal: Yes: Soft Musculoskeletal: Yes: Muscle Weakness Edema: No Neurological: Yes: Pre-Existing Deficit Labs: CBC, BMP 10/12/16 08:10 10/12/16 08:10 INR, PTT INR 1.29 (0.82-1.09) H 10/09/16 16:26 Problem List - Problems (1) Acute renal failure Code(s): N17.9 - ACUTE KIDNEY FAILURE, UNSPECIFIED Qualifiers: Acute renal failure type: unspecified Qualified Code(s): N17.9 - Acute kidney failure, unspecified (2) Anemia Code(s): D64.9 - ANEMIA, UNSPECIFIED Qualifiers: Anemia type: unspecified type Qualified Code(s): D64.9 - Anemia, unspecified (3) CHF (congestive heart failure) Code(s): I50.9 - HEART FAILURE, UNSPECIFIED (4) Dementia Code(s): F03.90 - UNSPECIFIED DEMENTIA WITHOUT BEHAVIORAL DISTURBANCE (5) Diabetes mellitus Code(s): E11.9 - TYPE 2 DIABETES MELLITUS WITHOUT COMPLICATIONS (6) HTN (hypertension) Code(s): I10 - ESSENTIAL (PRIMARY) HYPERTENSION (7) Neurogenic urinary bladder disorder Code(s): N31.9 - NEUROMUSCULAR DYSFUNCTION OF BLADDER, UNSPECIFIED Assessment/Plan Current Medications Generic Name Dose Route Start Last Admin Trade Name Freq PRN Reason Stop Dose Admin Acetaminophen 650 mg 10/09/16 19:25 10/11/16 10:00 Tylenol - PO 650 mg Q6H PRN Administration FEVER OR PAIN Carvedilol 3.125 mg 10/09/16 22:00 10/14/16 10:21 Coreg - PO 3.125 mg BID [facility] Administration Doxazosin Mesylate 1 mg 10/09/16 22:00 10/13/16 21:37 Cardura - PO 1 mg HS [facility] Administration Duloxetine HCl 20 mg 10/10/16 10:00 10/14/16 10:21 Cymbalta - PO 20 mg DAILY [facility] Administration Levofloxacin 50 mls @ 50 mls/hr 10/13/16 11:15 10/14/16 10:21 Levaquin 250 Mg Premixed Ivpb - IVPB 50 mls/hr DAILY [facility] Administration Mirtazapine 30 mg 10/14/16 22:00 Remeron - PO HS [facility] Ondansetron HCl 4 mg 10/10/16 19:44 10/12/16 20:09 Zofran Injection IVPB 4 mg Q4H PRN Administration NAUSEA AND/OR VOMITING Impression 1. PANCHO 2. hypercalcemia 3. HTN 4. hx CVA 5. CAD 6. CHF 7. Chol 8. DM 9. anemia 10. possible myeloma 11. UTI Plan - no new labs - family want conservative management - [facility] [place] - pt appears comfortable - abx for UTI - anemia, hypercalcemia and PANCHO likely in part from myeloma - monitor urine output Dr Silva
--- NOTE | 2016-10-14 13:29 | DS ---
Physical Examination Vital Signs: Vital Signs Temperature 97.6 F 10/14/16 06:30 Pulse Rate 87 10/14/16 06:30 Respiratory Rate 18 10/14/16 09:00 Blood Pressure 103/62 10/14/16 06:30 O2 Sat by Pulse Oximetry (%) 99 10/14/16 09:00 Constitutional: Yes: No Distress HENT: Yes: Atraumatic Cardiovascular: Yes: Regular Rate and Rhythm Respiratory: Yes: CTA Bilaterally Gastrointestinal: Yes: Normal Bowel Sounds Neurological: Yes: Alert Labs: CBC, BMP 10/12/16 08:10 10/12/16 08:10 Discharge Summary Reason For Visit: ANEMIA/ACUTE RENAL FAILURE Current Active Problems Acute renal failure (Acute) Anemia (Acute) Myeloma (Acute) Condition: Stable - Home Medications Comprehensive Discharge Medication List: Ambulatory Orders Acetaminophen [Tylenol] 650 mg PO PRN PRN 10/09/16 Ascorbate Calcium [Vitamin C] 500 mg PO DAILY 10/09/16 Carvedilol [Coreg -] 3.125 mg PO BID 10/09/16 Docusate Liquid [Colace Liquid -] 100 mg PO BID 10/09/16 Doxazosin Mesylate [Cardura -] 1 mg PO HS 10/09/16 Duloxetine HCl [Cymbalta] 20 mg PO DAILY 10/09/16 Folic Acid 1 mg PO DAILY 10/09/16 Hypromellose 0.5% Opth Soln [Artificial Tears] 1 drop BID 10/09/16 Mirtazapine [Remeron -] 30 mg PO DAILY 10/09/16 Multivit with Iron-Minerals [Compete] 1 each PO DAILY 10/09/16 Na Phos,M-B/Na Phos,Di-Ba [Fleet Enema] 133 ml RC ASDIR 10/09/16 Polyethylene Glycol 3350 [Miralax (For Daily Use) -] 17 gm PO DAILY 10/09/16 Sodium Bicarbonate - 1,300 mg PO TID 10/09/16 Levofloxacin [Levaquin -] 250 mg PO DAILY #7 tablet 10/13/16 dc to snf
[2016-10-14] MEDS ORDERED: MIRTAZAPINE 15 MG TABLET (FP) PO SCH (22:00)
[2016-10-19 00:14] LABS: SERUM IRON 75 ug/dL (38-169)
== END 2016-10-14 13:49 | DRG 812 ==
LOC: FER 16:04 → FM/S 17:57
PROVIDERS: ADMIT Internal Medicine; ATTEND Internal Medicine
PROC: 30233N1 Transfusion of Nonautologous Red Blood Cells into Peripheral Vein, Percutaneous Approach (ICD-10-PCS; principal; 2016-10-09)
DX: D64.9 Anemia, unspecified (principal); G95.9 Disease of spinal cord, unspecified; N17.9 Acute kidney failure, unspecified; C90.00 Multiple myeloma not having achieved remission; N39.0 Urinary tract infection, site not specified; I25.10 Atherosclerotic heart disease of native coronary artery without angina pectoris; Z95.0 Presence of cardiac pacemaker; I11.0 Hypertensive heart disease with heart failure; I50.9 Heart failure, unspecified; E78.5 Hyperlipidemia, unspecified; F03.90 Unspecified dementia, unspecified severity, without behavioral disturbance, psychotic disturbance, mood disturbance, and anxiety; N31.9 Neuromuscular dysfunction of bladder, unspecified; E83.52 Hypercalcemia; B96.5 Pseudomonas (aeruginosa) (mallei) (pseudomallei) as the cause of diseases classified elsewhere
CPT/HCPCS: 36415; 36430; 71010-TC; 80048; 80053; 81003; 81015; 82570; 82728; 83010; 83540; 83550; 83615; 84156; 84466; 85025; 85044; 85610; 86850; 86900; 86901; 86922; 87040; 87086; 87186; 93005; 99283-25; P9038; P9058

== ENCOUNTER → 2016-10-14 | Emergency (ER) | payer BC, OTHER ==
[2016-10-14 16:06] VITALS: BP 133/79; PULSE 84; TEMP 98.6; BMI 22.8
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
== END | disposition home or self-care (01) ==
LOC: FER 16:02
DX: Z04.1 Encounter for examination and observation following transport accident (principal); V86.11XA Passenger of ambulance or fire engine injured in traffic accident, initial encounter; Y93.89 Activity, other specified; Y92.410 Unspecified street and highway as the place of occurrence of the external cause; I10 Essential (primary) hypertension; E78.5 Hyperlipidemia, unspecified; E11.9 Type 2 diabetes mellitus without complications; I50.9 Heart failure, unspecified; I25.10 Atherosclerotic heart disease of native coronary artery without angina pectoris; Z95.0 Presence of cardiac pacemaker; F03.90 Unspecified dementia, unspecified severity, without behavioral disturbance, psychotic disturbance, mood disturbance, and anxiety
CPT/HCPCS: 70450-TC; 71010-TC; 99281-25

== ENCOUNTER 2016-11-04 17:20 | Observation (INO) | payer OTHER, BC ==
[2016-11-04 18:03] LABS: BASOPHIL 0.7 % (0-2.0); EOSINOPHIL 0.7 % (0-4.5); MCH 29.4 pg (25.7-33.7); MCHC 33.3 g/dl (32.0-35.9); MEAN CELL VOLUME 88.2 fl (80-96); MEAN PLT VOLUME 6.2 fl (7.5-11.1); NEUTROPHILS 67.1 % (42.8-82.8); PLATELET COUNT 155 K/MM3 (134-434); RDW 15.8 % (11.9-15.9); WHITE BLOOD COUNT 5.8 K/mm3 (4.0-10.0)
[2016-11-04 18:07] LABS: ALBUMIN 1.7 g/dl (3.5-5.0); ALK PHOS 41 U/L (32-92); ANION GAP 9 (8-16); BILIRUBIN,TOTAL 0.4 mg/dl (0.2-1.0); CALCIUM 8.7 mg/dl (8.4-10.2); CO2 27 mmol/L (22-28); CREATININE 1.3 mg/dl (0.6-1.3); GLUCOSE,RANDOM 99 mg/dl (74-106); SGOT/AST 13 U/L (10-42); TOT PROT 10.3 g/dl (6.4-8.3)
[2016-11-04 18:08] LABS: ACTIVATED PTT 60.7 SECONDS (24.0-38.9)
[2016-11-04 18:12] LABS: INR 1.45 (0.82-1.09); PROTHROMBIN TIME (PATIENT) 16.1 SEC (10.2-13.0)
[2016-11-04 18:28] LABS: SGPT/ALT < 9 U/L (10-40)
--- NOTE | 2016-11-04 18:44 | PDOC ---
[id number] is a 71 year old male with a significant past medical history of CVA( residual left sided weakness) HTN, Hyperlipidemia, diabetes, CAD, CHF s/p pacemaker, cervical myelopathy, multiple myeloma, dementia, [facility] for low hematocrit levels (6.6) and to be transfused. Patient was here about one month ago for anemia. Patient denies fever, chills. Patient denies coughing or vomiting. History limited from patient , mostly obtained from old records and EMS. long-term: [facility] PCP: Dr. Gustavo Polanco <José Miguel aSntamaria - Last Filed: 11/04/16 18:46> <Shahid Reddy - Last Filed: 11/12/16 07:08> - General Chief Complaint: Revisit, Lab Variance Stated Complaint: LOW HGB Time Seen by Provider: 11/04/16 17:22 Past History <José Miguel Santmaaria - Last Filed: 11/04/16 18:46> - Past Medical History Anemia: Yes Cancer: Yes (MULTIPLE MYELOMA) Cardiac Disorders: Yes (CAD, pacemaker) CHF: Yes Dementia: Yes Diabetes: Yes HTN: Yes Hypercholesterolemia: Yes Psychiatric Problems: Yes (DEPRESSION) Other medical history: LEFT SIDED SPASTICITY - Surgical History Cardiac Surgery: Yes (PPM) Neurologic Surgery: Yes (C5 C6 SURGERY) - Immunization History Td Vaccination: Yes TDAP Vaccination: Yes Immunization Up to Date: Yes - Psycho/Social/Smoking Cessation Hx Anxiety: No Suicidal Ideation: No Smoking History: Unknown if ever smoked Have you smoked in the past 12 months: No Number of Cigarettes Smoked Daily: 0 Hx Alcohol Use: No Drug/Substance Use Hx: No Substance Use Type: None Hx Substance Use Treatment: No <Shahid Reddy - Last Filed: 11/12/16 07:08> - Past Medical History Allergies/Adverse Reactions: Allergies Allergy/AdvReac Type Severity Reaction Status Date / Time No Known Allergies Allergy Verified 11/04/16 17:22 Home Medications: Ambulatory Orders Acetaminophen [Tylenol .Regular Strength -] 650 mg PO Q6H PRN 11/04/16 Ascorbate Calcium [Vitamin C] 500 mg PO BID 11/04/16 Carvedilol [Coreg -] 3.125 mg PO BID 11/04/16 Doxazosin Mesylate [Cardura] 1 mg PO HS 11/04/16 Duloxetine HCl [Cymbalta] 20 mg PO DAILY 11/04/16 Folic Acid 1 mg PO DAILY 11/04/16 Hypromellose 0.5% Opth Soln [Artificial Tears] 1 drop OU BID 11/04/16 Mirtazapine [Remeron -] 30 mg PO DAILY 11/04/16 Multivitamins [Multivit ([facility] Formul[facility])] 1 tab PO DAILY 11/04/16 Nutritional Supplement [Resource 2.0] 6 oz PO TID 11/04/16 Proform 60 ml PO BID 11/04/16 Sennosides [Senna -] 2 tab PO BID 11/04/16 Sodium Bicarbonate 650 mg PO TID 11/04/16 Sodium Phosphate/Na Biphos [Fleet Adult Rectal Enema -] 133 ml RC ASDIR Zinc Sulfate 220 mg PO DAILY 11/04/16 Review of Systems - Review of Systems Able to Perform ROS?: Yes Comments:: 11/04/16 18:45 GENERAL/CONSTITUTIONAL: No fever or chills. No weakness. HEAD, EYES, EARS, NOSE AND THROAT: No change in vision. No ear pain or discharge. No sore throat. CARDIOVASCULAR: No chest pain or shortness of breath. RESPIRATORY: No cough, wheezing, or hemoptysis. GASTROINTESTINAL: No nausea, vomiting, diarrhea or constipation. GENITOURINARY: No dysuria, frequency, or change in urination. MUSCULOSKELETAL: No joint or muscle swelling or pain. No neck or back pain. SKIN: No rash NEUROLOGIC: No headache, vertigo, loss of consciousness, or change in strength/ sensation. ENDOCRINE: No increased thirst. No abnormal weight change. HEMATOLOGIC/LYMPHATIC: No anemia, easy bleeding, or history of blood clots. ALLERGIC/IMMUNOLOGIC: No hives or skin allergy. Is the patient limited Tamazight proficient: No <José Miguel Santamaria - Last Filed: 11/04/16 18:46> *Physical Exam - Vital Signs Last Vital Signs Temp Pulse Resp BP Pulse Ox 98.1 F 86 20 121/82 100 11/04/16 17:20 11/04/16 17:20 11/04/16 17:20 11/04/16 17:20 11/04/16 17:20 - Physical Exam Comments: 11/04/16 18:45 GENERAL: no acute distress HEAD: No signs of trauma EYES: PERRLA, EOMI, sclera anicteric, conjunctiva clear ENT: Auricles normal inspection, hearing grossly normal, nares patent, oropharynx clear without exudates. Moist mucosa NECK: Normal ROM, supple, no lymphadenopathy, JVD, or masses LUNGS: Breath sounds equal, clear to auscultation bilaterally. No wheezes, and no crackles HEART: Regular rate and rhythm, normal S1 and S2, no murmurs, rubs or gallops ABDOMEN: Soft, nontender, normoactive bowel sounds. No guarding, no rebound. No masses EXTREMITIES: Normal range of motion, no edema. No clubbing or cyanosis. No cords, erythema, or tenderness NEUROLOGICAL: Contraction of left upper extremities, Baseline dysarthric SKIN: Warm, Dry, normal turgor, no rashes or lesions noted. <José Miguel Santamaria - Last Filed: 11/04/16 18:46> - Vital Signs Last Vital Signs Temp Pulse Resp BP Pulse Ox 98.1 F 86 20 121/82 100 11/04/16 17:20 11/04/16 17:20 11/04/16 17:20 11/04/16 17:20 11/04/16 17:20 <Shahid Reddy - Last Filed: 11/12/16 07:08> Heart Score/ECG Review #1 ECG reviewed & interpreted by me at: 18:00 11/04/16 19:07 Ventricular paced rhythm 88 <Shahid Reddy - Last Filed: 11/12/16 07:08> ED Treatment Course - LABORATORY CBC & Chemistry Diagram: 11/04/16 17:30 11/04/16 17:30 - ADDITIONAL ORDERS Additional order review: Laboratory Results 11/04/16 11/04/16 11/04/16 17:30 17:30 17:30 INR 1.45 H PTT (Actin FS) 60.7 H D Sodium 136 Potassium 3.5 Chloride 100 Carbon Dioxide 27 Anion Gap 9 BUN 20 H D Creatinine 1.3 D Creat Clearance w eGFR 54.57 Random Glucose 99 Calcium 8.7 Total Bilirubin 0.4 AST 13 ALT < 9 L Alkaline Phosphatase 41 D Total Protein 10.3 H Albumin 1.7 L Crossmatch See Detail 11/04/16 17:30 RBC 2.29 L MCV 88.2 MCHC 33.3 RDW 15.8 MPV 6.2 L Neutrophils % 67.1 Lymphocytes % 24.3 D Monocytes % 7.2 Eosinophils % 0.7 Basophils % 0.7 <José Miguel Santamaria - Last Filed: 11/04/16 18:46> - LABORATORY CBC & Chemistry Diagram: 11/05/16 17:00 11/04/16 17:30 - ADDITIONAL ORDERS Additional order review: Laboratory Results 11/04/16 11/04/16 11/04/16 17:30 17:30 17:30 INR 1.45 H PTT (Actin FS) 60.7 H D Sodium 136 Potassium 3.5 Chloride 100 Carbon Dioxide 27 Anion Gap 9 BUN 20 H D Creatinine 1.3 D Creat Clearance w eGFR 54.57 Random Glucose 99 Calcium 8.7 Total Bilirubin 0.4 AST 13 ALT < 9 L Alkaline Phosphatase 41 D Total Protein 10.3 H Albumin 1.7 L Crossmatch See Detail 11/04/16 17:30 RBC 2.29 L MCV 88.2 MCHC 33.3 RDW 15.8 MPV 6.2 L Neutrophils % 67.1 Lymphocytes % 24.3 D Monocytes % 7.2 Eosinophils % 0.7 Basophils % 0.7 - RADIOLOGY Radiology Studies Ordered: Category Date Time Status CHEST X-RAY PORTABLE* [RAD] Stat Radiology 11/04/16 17:24 Taken <Shahid Reddy - Last Filed: 11/12/16 07:08> Medical Decision Making - Medical Decision Making 11/04/16 18:46 Oncology/Hematology: Huber Pierre called Office: 18:00 Will be paged Oncology/Hematology: Dr. Newton called back at 18:20 case discussed <José Miguel Santamaria - Last Filed: 11/04/16 18:46> - Medical Decision Making 11/04/16 18:43 A portion of this note was documented by scribe services under my direction. I have reviewed the details of the note, within reason, and agree with the documentation with the following case summary and management plan written by me. Patient treated in the ED. Nursing notes are reviewed and incorporated into the medical decision-making. Vital signs reviewed. Peripheral IV access obtained by the nurse, laboratory studies are drawn and sent, reviewed and interpreted by myself. Vital Signs Temp Pulse Resp BP Pulse Ox 98.1 F 86 20 121/82 100 11/04/16 17:20 11/04/16 17:20 11/04/16 17:20 11/04/16 17:20 11/04/16 17:20 71 year old male with past medical history of hypertension, hyperlipidemia, diabetes, coronary disease, CHF status post pacemaker, cervical myelopathy, dementia, multiple myeloma [facility] from [facility] for [facility]. According to the patient's daughter, Aster, the patient has had multiple prior blood transfusion setting of multiple myeloma. They have chosen not to treat the multiple myeloma at this time. He has had a recent but chest fusion. Patient has no complaint at this time and reports feeling unremarkable. At the [facility], patient noted having a Hgb 6.6. Here, the patient has seen a Hgb 6.7. I had called and discussed with the patient's daughter, Aster, the healthcare proxy. She consents the patient for blood transfusions. CBC, BMP 11/04/16 17:30 11/04/16 17:30 CMP Sodium 136 mmol/L (136-145) 11/04/16 17:30 Potassium 3.5 mmol/L (3.5-5.1) 11/04/16 17:30 Chloride 100 mmol/L (98-107) 11/04/16 17:30 Carbon Dioxide 27 mmol/L (22-28) 11/04/16 17:30 Anion Gap 9 (8-16) 11/04/16 17:30 BUN 20 mg/dl (7-18) H D 11/04/16 17:30 Creatinine 1.3 mg/dl (0.6-1.3) D 11/04/16 17:30 Creat Clearance w eGFR 54.57 (>60) 11/04/16 17:30 Random Glucose 99 mg/dl (74-106) 11/04/16 17:30 Calcium 8.7 mg/dl (8.4-10.2) 11/04/16 17:30 Total Bilirubin 0.4 mg/dl (0.2-1.0) 11/04/16 17:30 AST 13 U/L (10-42) 11/04/16 17:30 ALT < 9 U/L (10-40) L 11/04/16 17:30 Alkaline Phosphatase 41 U/L (32-92) D 11/04/16 17:30 Total Protein 10.3 g/dl (6.4-8.3) H 11/04/16 17:30 Albumin 1.7 g/dl (3.5-5.0) L 11/04/16 17:30 2u PRBC ordered Will admit the patient to med/surg observation. <Shahid Reddy - Last Filed: 11/12/16 07:08> *DC/Admit/Observation/Transfer - Attestations Scribe Attestion: 11/04/16 18:46 Documentation prepared by José Miguel Santamaria, acting as medical billing assistant for Shahid Reddy MD <José Miguel Santamaria - Last Filed: 11/04/16 18:46> - Discharge Dispostion Admit: Yes <Shahid Reddy - Last Filed: 11/12/16 07:08> Diagnosis at time of Disposition: Dementia, Myeloma Anemia Qualifiers: Anemia type: unspecified type Qualified Code(s): D64.9 - Anemia, unspecified - Discharge Dispostion Disposition: [facility] Condition at time of disposition: Stable
--- NOTE | 2016-11-04 19:21 | PDOC ---
*Physical Exam - Vital Signs Last Vital Signs Temp Pulse Resp BP Pulse Ox 98.1 F 86 20 121/82 100 11/04/16 17:20 11/04/16 17:20 11/04/16 17:20 11/04/16 17:20 11/04/16 17:20 ED Treatment Course - LABORATORY CBC & Chemistry Diagram: 11/04/16 17:30 11/04/16 17:30 - ADDITIONAL ORDERS Additional order review: Laboratory Results 11/04/16 11/04/16 11/04/16 17:30 17:30 17:30 INR 1.45 H PTT (Actin FS) 60.7 H D Sodium 136 Potassium 3.5 Chloride 100 Carbon Dioxide 27 Anion Gap 9 BUN 20 H D Creatinine 1.3 D Creat Clearance w eGFR 54.57 Random Glucose 99 Calcium 8.7 Total Bilirubin 0.4 AST 13 ALT < 9 L Alkaline Phosphatase 41 D Total Protein 10.3 H Albumin 1.7 L Crossmatch See Detail 11/04/16 17:30 RBC 2.29 L MCV 88.2 MCHC 33.3 RDW 15.8 MPV 6.2 L Neutrophils % 67.1 Lymphocytes % 24.3 D Monocytes % 7.2 Eosinophils % 0.7 Basophils % 0.7 - RADIOLOGY Radiology Studies Ordered: Category Date Time Status CHEST X-RAY PORTABLE* [RAD] Stat Radiology 11/04/16 17:24 Taken *DC/Admit/Observation/Transfer Diagnosis at time of Disposition: Anemia Qualifiers: Anemia type: unspecified type Qualified Code(s): D64.9 - Anemia, unspecified - Discharge Dispostion Condition at time of disposition: Stable Decision to Admit order Date/Time: Decision to Admit Order Category Date Time Status Decision to Admit to Hospital Routine Admission 11/04/16 19:13 Active
--- NOTE | 2016-11-04 19:24 | PDOC ---
*Physical Exam - Vital Signs Last Vital Signs Temp Pulse Resp BP Pulse Ox 98.1 F 86 20 121/82 100 11/04/16 17:20 11/04/16 17:20 11/04/16 17:20 11/04/16 17:20 11/04/16 17:20 ED Treatment Course - LABORATORY CBC & Chemistry Diagram: 11/04/16 17:30 11/04/16 17:30 - ADDITIONAL ORDERS Additional order review: Laboratory Results 11/04/16 11/04/16 11/04/16 17:30 17:30 17:30 INR 1.45 H PTT (Actin FS) 60.7 H D Sodium 136 Potassium 3.5 Chloride 100 Carbon Dioxide 27 Anion Gap 9 BUN 20 H D Creatinine 1.3 D Creat Clearance w eGFR 54.57 Random Glucose 99 Calcium 8.7 Total Bilirubin 0.4 AST 13 ALT < 9 L Alkaline Phosphatase 41 D Total Protein 10.3 H Albumin 1.7 L Crossmatch See Detail 11/04/16 17:30 RBC 2.29 L MCV 88.2 MCHC 33.3 RDW 15.8 MPV 6.2 L Neutrophils % 67.1 Lymphocytes % 24.3 D Monocytes % 7.2 Eosinophils % 0.7 Basophils % 0.7 Medical Decision Making - Medical Decision Making 11/04/16 19:46 Case discussed with who is familiar with the patient from previous admission. She will admit the patient to her service (observation). Patient continues to be comfortable and without complaints *DC/Admit/Observation/Transfer Diagnosis at time of Disposition: Anemia Qualifiers: Anemia type: unspecified type Qualified Code(s): D64.9 - Anemia, unspecified Dementia Qualifiers: Dementia type: unspecified type Dementia behavioral disturbance: without behavioral disturbance Qualified Code(s): F03.90 - Unspecified dementia without behavioral disturbance Myeloma Qualifiers: Multiple myeloma remission status: unspecified Qualified Code(s): C90.00 - Multiple myeloma not having achieved remission - Discharge Dispostion Condition at time of disposition: Stable Admit: Yes
[2016-11-04 20:53] VITALS: BMI 21.9
--- NOTE | 2016-11-04 21:51 | HP ---
Admitting History and Physical - Primary Care Physician PCP: Mary Person - Admission History of Present Illness: 71 year old male with a significant past medical history of CVA( residual left sided weakness) HTN, Hyperlipidemia, diabetes, CAD, CHF s/p pacemaker, cervical myelopathy, multiple myeloma, dementia, [facility] hematocrit levels (6.6) and to be transfused. Patient was here about one month ago for anemia. Patient denies fever, chills. Patient denies coughing or vomiting. History limited from patient, mostly obtained from old records and EMS. long term: [facility] PCP: Dr. Gustavo Polanco - Past Medical History [employer]: Yes: Dementia Cardiovascular: Yes: CAD, CHF, HTN, Hyperlipdemia Renal/: Yes: Neurogenic Bladder Heme/Onc: Yes: Other (myeloma) Endocrine: Yes: Diabetes Mellitus - Past Surgical History Past Surgical History: Yes: Permanent Pacemaker - Smoking History Smoking history: Unknown if ever smoked Have you smoked in the past 12 months: No Aproximately how many cigarettes per day: 0 - Alcohol/Substance Use Hx Alcohol Use: No Home Medications - Allergies Allergies/Adverse Reactions: Allergies Allergy/AdvReac Type Severity Reaction Status Date / Time No Known Allergies Allergy Verified 11/04/16 17:22 - Home Medications Home Medications: Ambulatory Orders Acetaminophen [Tylenol .Regular Strength -] 650 mg PO Q6H PRN 11/04/16 Ascorbate Calcium [Vitamin C] 500 mg PO BID 11/04/16 Carvedilol [Coreg -] 3.125 mg PO BID 11/04/16 Doxazosin Mesylate [Cardura] 1 mg PO HS 11/04/16 Duloxetine HCl [Cymbalta] 20 mg PO DAILY 11/04/16 Folic Acid 1 mg PO DAILY 11/04/16 Hypromellose 0.5% Opth Soln [Artificial Tears] 1 drop OU BID 11/04/16 Mirtazapine [Remeron -] 30 mg PO DAILY 11/04/16 Multivitamins [Multivit ([facility] Formulary)] 1 tab PO DAILY 11/04/16 Nutritional Supplement [Resource 2.0] 6 oz PO TID 11/04/16 Proform 60 ml PO BID 11/04/16 Sennosides [Senna -] 2 tab PO BID 11/04/16 Sodium Bicarbonate 650 mg PO TID 11/04/16 Sodium Phosphate/Na Biphos [Fleet Adult Rectal Enema -] 133 ml RC ASDIR Zinc Sulfate 220 mg PO DAILY 11/04/16 Physical Examination Vital Signs: Vital Signs Temperature 98.2 F 11/04/16 19:45 Pulse Rate 61 11/04/16 19:45 Respiratory Rate 16 11/04/16 19:45 Blood Pressure 129/64 11/04/16 19:45 O2 Sat by Pulse Oximetry (%) 99 11/04/16 19:45 Constitutional: Yes: No Distress HENT: Yes: Atraumatic Neck: Yes: Supple Cardiovascular: Yes: Regular Rate and Rhythm Respiratory: Yes: CTA Bilaterally Gastrointestinal: Yes: Normal Bowel Sounds Extremities: Yes: WNL Neurological: Yes: Alert, Oriented Assessment/Plan Laboratory Tests 11/04/16 11/04/16 11/04/16 17:30 17:30 17:30 WBC 5.8 RBC 2.29 L Hgb 6.7 L* D Hct 20.2 L D MCV 88.2 MCHC 33.3 RDW 15.8 Plt Count 155 MPV 6.2 L Neutrophils % 67.1 Lymphocytes % 24.3 D Monocytes % 7.2 Eosinophils % 0.7 Basophils % 0.7 INR 1.45 H PTT (Actin FS) 60.7 H D Sodium 136 Potassium 3.5 Chloride 100 Carbon Dioxide 27 Anion Gap 9 BUN 20 H D Creatinine 1.3 D Creat Clearance w eGFR 54.57 Random Glucose 99 Calcium 8.7 Total Bilirubin 0.4 AST 13 ALT < 9 L Alkaline Phosphatase 41 D Total Protein 10.3 H Albumin 1.7 L Blood Type Antibody Screen Crossmatch 11/04/16 17:30 WBC RBC Hgb Hct MCV MCHC RDW Plt Count MPV Neutrophils % Lymphocytes % Monocytes % Eosinophils % Basophils % INR PTT (Actin FS) Sodium Potassium Chloride Carbon Dioxide Anion Gap BUN Creatinine Creat Clearance w eGFR Random Glucose Calcium Total Bilirubin AST ALT Alkaline Phosphatase Total Protein Albumin Blood Type O POSITIVE Antibody Screen Negative Crossmatch See Detail 1.anemia sent to hospital due to low h/h pt will be transfused 2u prbc 2.CKD 3.MYELOMA 4.htn 5.hld 6.dm 7.chf 8.dementia continue home meds dvt ppx will send urine
[2016-11-05] MEDS ORDERED: FUROSEMIDE 40 MG/4 ML INJECTABLE VIAL ONE (00:02)
[2016-11-05] MEDS ORDERED: FUROSEMIDE 40 MG/4 ML INJECTABLE VIAL IVPUSH ONE (00:03)
[2016-11-05 08:10] LABS: MCH 29.6 pg (25.7-33.7); MCHC 33.5 g/dl (32.0-35.9); MEAN CELL VOLUME 88.4 fl (80-96); MEAN PLT VOLUME 6.2 fl (7.5-11.1); NEUTROPHILS 57.6 % (42.8-82.8); PLATELET COUNT 129 K/MM3 (134-434); RDW 15.4 % (11.9-15.9); WHITE BLOOD COUNT 4.4 K/mm3 (4.0-10.0)
[2016-11-05 08:11] LABS: BASOPHIL 0.9 % (0-2.0); EOSINOPHIL 1.2 % (0-4.5)
--- NOTE | 2016-11-05 17:22 | PN ---
Progress Note, Physician - Objective Vital Signs: Vital Signs Temperature 98.2 F 11/05/16 14:38 Pulse Rate 97 H 11/05/16 14:38 Respiratory Rate 18 11/05/16 14:38 Blood Pressure 142/88 11/05/16 14:38 O2 Sat by Pulse Oximetry (%) 96 11/05/16 14:38 Constitutional: Yes: Calm HENT: Yes: Atraumatic Neck: Yes: Supple Cardiovascular: Yes: Regular Rate and Rhythm Respiratory: Yes: CTA Bilaterally Gastrointestinal: Yes: Normal Bowel Sounds Extremities: Yes: Other (contractures) Neurological: Yes: Alert Labs: INR, PTT INR 1.45 (0.82-1.09) H 11/04/16 17:30 Assessment/Plan 1) Anemia s/p 3u prbc hgb 9 (2) CHF (congestive heart failure)Code(s): I50.9 - HEART FAILURE, UNSPECIFIED (3) Dementia Code(s): F03.90 - UNSPECIFIED DEMENTIA WITHOUT BEHAVIORAL DISTURBANCE (4) Diabetes mellitus Code(s): E11.9 - TYPE 2 DIABETES MELLITUS WITHOUT COMPLICATIONS (5) HTN (hypertension) Code(s): I10 - ESSENTIAL (PRIMARY) HYPERTENSION (6) Neurogenic urinary bladder disorder Code(s): N31.9 - NEUROMUSCULAR DYSFUNCTION OF BLADDER, UNSPECIFIED (7) Myeloma Code(s): C90.00 - MULTIPLE MYELOMA NOT HAVING ACHIEVED REMISSION pt can be dc to [facility]..stable
--- NOTE | 2016-11-05 17:23 | DS ---
Physical Examination Vital Signs: Vital Signs Temperature 98.2 F 11/05/16 14:38 Pulse Rate 97 H 11/05/16 14:38 Respiratory Rate 18 11/05/16 14:38 Blood Pressure 142/88 11/05/16 14:38 O2 Sat by Pulse Oximetry (%) 96 11/05/16 14:38 Discharge Summary Reason For Visit: ANEMIA Current Active Problems Anemia (Acute) Dementia (Acute) Myeloma (Acute) Condition: Stable - Home Medications Comprehensive Discharge Medication List: Ambulatory Orders Acetaminophen [Tylenol -] 650 mg PO Q6H PRN 11/04/16 Ascorbate Calcium [Vitamin C] 500 mg PO BID 11/04/16 Carvedilol [Coreg -] 3.125 mg PO BID 11/04/16 Doxazosin Mesylate [Cardura] 1 mg PO HS 11/04/16 Duloxetine HCl [Cymbalta] 20 mg PO DAILY 11/04/16 Folic Acid 1 mg PO DAILY 11/04/16 Hypromellose 0.5% Opth Soln [Artificial Tears] 1 drop OU BID 11/04/16 Mirtazapine [Remeron -] 30 mg PO DAILY 11/04/16 Multivitamins [Tab-A-Vit -] 1 tab PO DAILY 11/04/16 Nutritional Supplement [Resource 2.0] 6 oz PO TID 11/04/16 Proform 60 ml PO BID 11/04/16 Sennosides [Senna] 2 tab PO BID 11/04/16 Sodium Bicarbonate 650 mg PO TID 11/04/16 Sodium Phosphate/Na Biphos [Fleet Adult Rectal Enema] 133 ml RC ASDIR 11/04/16 Zinc Sulfate 220 mg PO DAILY 11/04/16
[2016-11-05 17:32] LABS: MCH 30.8 pg (25.7-33.7); MCHC 34.8 g/dl (32.0-35.9); MEAN CELL VOLUME 88.3 fl (80-96); PLATELET COUNT 126 K/MM3 (134-434); RDW 14.8 % (11.9-15.9); WHITE BLOOD COUNT 4.1 K/mm3 (4.0-10.0)
[2016-11-05] MEDS: DULoxetine HCL 20 MG CAPSULE.DR (FP) PO SCH ×2 (18:50→18:54)
[2016-11-05] MEDS ORDERED: PT OWN MED DRAWER 7, Y5N ONE (21:02)
[2016-11-05] MEDS: CARVEDILOL 3.125 MG TABLET (FP) PO SCH (21:55)
[2016-11-05] MEDS: SENNOSIDES 8.6MG TABLET (FP) PO SCH (21:55)
[2016-11-05] MEDS ORDERED: DOXAZOSIN MESYLATE 1 MG TABLET PO SCH (22:00)
[2016-11-05] MEDS ORDERED: ACETAMINOPHEN 325 MG TABLET (FP) PO PRN (22:23)
[2016-11-06 05:37] VITALS: BP 125/76; PULSE 85; TEMP 97.6
[2016-11-06] MEDS ORDERED: DOXAZOSIN MESYLATE 2 MG TABLET (FP) PO SCH (08:18)
[2016-11-06] MEDS: CARVEDILOL 3.125 MG TABLET (FP) PO SCH (10:00)
[2016-11-06] MEDS: SENNOSIDES 8.6MG TABLET (FP) PO SCH (10:00)
[2016-11-06] MEDS ORDERED: PT OWN MED DRAWER 7, Y5N ONE (10:03)
[2016-11-06] MEDS: DULoxetine HCL 20 MG CAPSULE.DR (FP) PO SCH (10:09)
--- NOTE | 2016-11-06 12:40 | EKG ---
Test Reason : Blood Pressure : / mmHG Vent. Rate : 088 BPM Atrial Rate : 089 BPM P-R Int : 000 ms QRS Dur : 176 ms QT Int : 512 ms P-R-T Axes : 000 -60 075 degrees QTc Int : 619 ms Ventricular-paced rhythm ABNORMAL ECG WHEN COMPARED WITH ECG OF 09-OCT-2016 16:36, VENT. RATE HAS DECREASED BY 10 BPM Confirmed by ADAM TRAYLOR MD ([id number] on 11/06/2016 12:40:05 PM Referred By: FIDENCIO Confirmed By:ADAM TRAYLOR MD
--- NOTE | 2016-11-06 21:59 | DS ---
Physical Examination Vital Signs: Vital Signs Temperature 97.6 F 11/06/16 09:00 Pulse Rate 85 11/06/16 09:00 Respiratory Rate 18 11/06/16 09:00 Blood Pressure 125/76 11/06/16 09:00 O2 Sat by Pulse Oximetry (%) 95 11/06/16 05:36 Labs: CBC, BMP 11/05/16 17:00 Discharge Summary Reason For Visit: ANEMIA Condition: Stable - Instructions Disposition: INTERMEDIATE FACILITY - Home Medications Comprehensive Discharge Medication List: Ambulatory Orders Acetaminophen [Tylenol .Regular Strength -] 650 mg PO Q6H PRN 11/04/16 Ascorbate Calcium [Vitamin C] 500 mg PO BID 11/04/16 Carvedilol [Coreg -] 3.125 mg PO BID 11/04/16 Doxazosin Mesylate [Cardura] 1 mg PO HS 11/04/16 Duloxetine HCl [Cymbalta] 20 mg PO DAILY 11/04/16 Folic Acid 1 mg PO DAILY 11/04/16 Hypromellose 0.5% Opth Soln [Artificial Tears] 1 drop OU BID 11/04/16 Mirtazapine [Remeron -] 30 mg PO DAILY 11/04/16 Multivitamins [Multivit ([facility] Formulary)] 1 tab PO DAILY 11/04/16 Nutritional Supplement [Resource 2.0] 6 oz PO TID 11/04/16 Proform 60 ml PO BID 11/04/16 Sennosides [Senna -] 2 tab PO BID 11/04/16 Sodium Bicarbonate 650 mg PO TID 11/04/16 Sodium Phosphate/Na Biphos [Fleet Adult Rectal Enema -] 133 ml RC ASDIR Zinc Sulfate 220 mg PO DAILY 11/04/16 sc home
== END 2016-11-06 11:27 ==
LOC: FER 17:20 → FM/S 19:43
PROVIDERS: ADMIT Internal Medicine; ATTEND Internal Medicine
PROC: 30233N1 Transfusion of Nonautologous Red Blood Cells into Peripheral Vein, Percutaneous Approach (ICD-10-PCS; principal; 2016-11-03)
DX: D64.9 Anemia, unspecified (principal); I13.0 Hypertensive heart and chronic kidney disease with heart failure and stage 1 through stage 4 chronic kidney disease, or unspecified chronic kidney disease; N18.9 Chronic kidney disease, unspecified; I50.9 Heart failure, unspecified; F03.90 Unspecified dementia, unspecified severity, without behavioral disturbance, psychotic disturbance, mood disturbance, and anxiety; E11.9 Type 2 diabetes mellitus without complications; N31.9 Neuromuscular dysfunction of bladder, unspecified; C90.00 Multiple myeloma not having achieved remission; I69.354 Hemiplegia and hemiparesis following cerebral infarction affecting left non-dominant side; I25.10 Atherosclerotic heart disease of native coronary artery without angina pectoris; Z95.0 Presence of cardiac pacemaker; E78.5 Hyperlipidemia, unspecified
CPT/HCPCS: 36415; 36430; 71010-TC; 80053; 85025; 85027; 85610; 85730; 86850; 86900; 86901; 86922; 93005; 99284-25; G0378; P9038; P9058